=== PATIENT | female | born 1935 | race Caucasian/White ===

== ENCOUNTER → 2017-10-08 | Outpatient (CLI) | payer OTHER ==
[~2017-10-08] MED LIST: ALBIPROI INH; ALBU2SYA; ALBU3IS; ALBU3IS INH; ALBU90OI INH; ALEN70 PO; ARTIFICIAL TEAR15 M1 BOTHEYES; ATOR10; ATOR10 PO; ATOR20 PO; ATOR80 PO; Artificial Tear15 M4 BOTHEYES; Aspir 8181 MG PO; BENZ100A PO; BUDE6HFA INH; CARV6.25 PO; CHLO4; CIME400; CIPR500 PO; CLON1 PO; CLOP75; CLOP75 PO; Cetirizine HCl10 MG PO; DELTASONE20 MG PO; DIGO.125 PO; ERGO50000 PO; ESCI20 PO; FAMO20 PO; FISH1000; FLUSAL2505 IH; FLUT.05NI; FURO40 PO; GABA100 PO; GAVILAX17 GM PO; GLIP5 PO; GUAI600T33 PO; Gummi Bear Mul1 EACH PO; HYDACE5 PO; LEVCAR2510; LEVE500 PO; LEVFLO250 PO; LEVO750 PO; LISI5 PO; LORA10ER PO; MAGGLU250; MECL25 PO; METF500 PO; MYRBETRIQ25 MG PO; OMEP20ER PO; ONDA4ODT MM; OXYB5 PO; PRED10 PO; PRED20 PO; RANI150; RIVASTIGMINE1 EAC1 TD; RXLORA1 PO; RXPROACE PO; SERT100; SERT100 PO; SERT50; SIMV40 PO; SPIR25 PO; Senna Plus Tab1 EACH PO; TIOT18 IH; TOLT4 PO; TRAZ50 PO; TRELEGY ELLIPT1 EACH INH; VENL25 PO; VENL75ER PO
== END | disposition home or self-care (01) ==
LOC: LAB EV 18:45
DX: N39.0 Urinary tract infection, site not specified (principal)
CPT/HCPCS: 87077; 87086; 87186

== ENCOUNTER 2018-02-12 14:51 | Emergency (ER) | payer OTHER ==
[~2018-02-12] VITALS: Ht 144.8 cm; Wt 59.9 kg
[~2018-02-12 14:51] MED LIST changes: -ALBU90OI INH; -ARTIFICIAL TEAR15 M1 BOTHEYES; +ASPI81EC PO; -ATOR80 PO; -Artificial Tear15 M4 BOTHEYES; -Aspir 8181 MG PO; -DELTASONE20 MG PO; -GAVILAX17 GM PO; -GUAI600T33 PO; -Gummi Bear Mul1 EACH PO; -LEVFLO250 PO; -Senna Plus Tab1 EACH PO; -TRELEGY ELLIPT1 EACH INH
== END 2018-02-12 16:39 | disposition home or self-care (01) ==
LOC: ER 14:51
DX: S50.11XA Contusion of right forearm, initial encounter (principal); M79.644 Pain in right finger(s); I25.2 Old myocardial infarction; J44.9 Chronic obstructive pulmonary disease, unspecified; I25.10 Atherosclerotic heart disease of native coronary artery without angina pectoris; E11.22 Type 2 diabetes mellitus with diabetic chronic kidney disease; N18.9 Chronic kidney disease, unspecified; I50.9 Heart failure, unspecified; Z87.01 Personal history of pneumonia (recurrent); Z88.8 Allergy status to other drugs, medicaments and biological substances; Z88.1 Allergy status to other antibiotic agents; Z88.6 Allergy status to analgesic agent; Z88.0 Allergy status to penicillin; Z88.5 Allergy status to narcotic agent; Z79.899 Other long term (current) drug therapy; Z79.82 Long term (current) use of aspirin; Z79.84 Long term (current) use of oral hypoglycemic drugs; Z87.891 Personal history of nicotine dependence; W06.XXXA Fall from bed, initial encounter
CPT/HCPCS: 73080; 73140; 99283

== ENCOUNTER 2018-02-28 14:06 | Inpatient (IN) | payer OTHER ==
[~2018-02-28] VITALS: Ht 160 cm; Wt 64.0 kg
[~2018-02-28 14:06] MED LIST changes: -ASPI81EC PO; +Aspir 8181 MG PO
[2018-02-28 14:57] LABS: BASOPHILS ABSOLUTE AUTO 0.05 K/mm3 (0.00-0.23); BASOPHILS PERCENT AUTO 1 % (0-2); EOSINOPHILS ABSOLUTE AUTO 0.12 K/mm3 (0.00-0.68); EOSINOPHILS PERCENT AUTO 1 % (0-6); Hematocrit 38.2 % (33.0-51.0); Hemoglobin 12.3 g/dL (11.5-16.0); IMMATURE GRAN ABSOLUTE AUTO 0.06 K/mm3 (0.00-0.10); IMMATURE GRAN PERCENT AUTO 1 % (0-1); LYMPHOCYTES ABSOLUTE AUTO 1.51 K/mm3 (0.84-5.20); LYMPHOCYTES PERCENT AUTO 16 % (21-46); MONOCYTES ABSOLUTE AUTO 0.98 K/mm3 (0.16-1.47); MONOCYTES PERCENT AUTO 10 % (4-13); Mean Corpuscular HGB 29.2 pg (26.0-34.0); Mean Corpuscular HGB Conc 32.2 g/dL (31.5-36.5); Mean Corpuscular Volume 91 fL (80-100); Mean Platelet Volume 9.5 fL (9.1-12.4); NEUTROPHILS ABSOLUTE AUTO 6.83 K/mm3 (1.96-9.15); NEUTROPHILS PERCENT AUTO 72 % (41-73); Platelet Count 210 K/mm3 (150-400); RDW Coefficient Variation 14.2 % (11.7-14.2); RDW Standard Deviation 47.4 fL (35.1-46.3); Red Blood Cell Count 4.21 M/mm3 (3.80-5.20); White Blood Cell Count 9.55 K/mm3 (4.00-11.30)
[2018-02-28 15:08] LABS: International Normalized Ratio 1.06; Prothrombin Time Results 10.9 Sec (9.7-11.5)
[2018-02-28 15:18] LABS: Alanine Aminotransfer (ALT/SGP 25 U/L (12-78); Albumin, Blood 3.3 g/dL (3.4-5.0); Albumin/Globulin Ratio 0.8 (0.8-1.8); Alk Phos 76 U/L (50-136); Anion Gap 7 mmol/L (6-16); Aspartate Aminotrans (AST/SGOT 25 U/L (12-37); Bilirubin, Total 0.5 mg/dL (0.1-1.0); Blood Urea Nitrogen 31 mg/dL (8-24); Bun/Creatinine Ratio 23.1 (12.0-20.0); CO2, Blood 26 mmol/L (21-32); Calcium, Blood 8.5 mg/dL (8.5-10.1); Chloride, Blood 106 mmol/L (98-108); Creatinine, Blood 1.34 mg/dL (0.40-1.00); Globulin, Blood 3.9 g/dL (2.2-4.0); Glomerular Filtration Rate 40 (60-); Glucose, Blood 178 mg/dL (70-99); Potassium, Blood 4.3 mmol/L (3.5-5.5); Sodium, Blood 139 mmol/L (136-145); Total Protein, Blood 7.2 g/dL (6.4-8.2); Troponin I <0.015 ng/mL (0.000-0.040)
[2018-02-28 15:39] LABS: Bilirubin, Urine Neg (Neg); Blood, Urine 3+ (Neg); Glucose Qualitative, Urine Neg (Neg); Ketones, Urine Neg (Neg); Leukocyte Esterase, Urine Neg (Neg); Nitrite, Urine Neg (Neg); Protein, Urine Neg (Neg); Specific Gravity, Urine 1.015 (1.003-1.022); Urobilinogen, Urine NORM (Normal)
[2018-02-28 15:47] LABS: Appearance, Urine Clear (Clear); Color, Urine Yellow (P-Yellow)
[2018-02-28 15:48] LABS: Bacteria Not Seen /hpf; Red Blood Cells, Urine Not Seen /hpf (0-2); Squamous Epithelial Cells Not Seen /hpf (Few); White Blood Cells, Urine Not Seen /hpf (0-5)
[2018-03-01] MEDS ORDERED: GABA100 PO (01:14)
[2018-03-01] MEDS ORDERED: ALBU90OI INH (01:16)
[2018-03-01] MEDS ORDERED: TRELEGY ELLIPT1 EACH INH (01:30)
[2018-03-01] MEDS ORDERED: ATOR80 PO (01:35)
[2018-03-01] MEDS ORDERED: Gummi Bear Mul1 EACH PO (01:36)
[2018-03-01] MEDS ORDERED: Artificial Tear15 M4 BOTHEYES (01:38)
[2018-03-01 05:20] LABS: BASOPHILS ABSOLUTE AUTO 0.03 K/mm3 (0.00-0.23); BASOPHILS PERCENT AUTO 0 % (0-2); EOSINOPHILS ABSOLUTE AUTO 0.15 K/mm3 (0.00-0.68); EOSINOPHILS PERCENT AUTO 2 % (0-6); Hematocrit 31.3 % (33.0-51.0); Hemoglobin 9.8 g/dL (11.5-16.0); IMMATURE GRAN ABSOLUTE AUTO 0.04 K/mm3 (0.00-0.10); IMMATURE GRAN PERCENT AUTO 1 % (0-1); LYMPHOCYTES ABSOLUTE AUTO 1.88 K/mm3 (0.84-5.20); LYMPHOCYTES PERCENT AUTO 22 % (21-46); MONOCYTES ABSOLUTE AUTO 1.11 K/mm3 (0.16-1.47); MONOCYTES PERCENT AUTO 13 % (4-13); Mean Corpuscular HGB 28.6 pg (26.0-34.0); Mean Corpuscular HGB Conc 31.3 g/dL (31.5-36.5); Mean Corpuscular Volume 91 fL (80-100); Mean Platelet Volume 9.6 fL (9.1-12.4); NEUTROPHILS ABSOLUTE AUTO 5.54 K/mm3 (1.96-9.15); NEUTROPHILS PERCENT AUTO 63 % (41-73); Platelet Count 197 K/mm3 (150-400); RDW Coefficient Variation 14.1 % (11.7-14.2); Red Blood Cell Count 3.43 M/mm3 (3.80-5.20); White Blood Cell Count 8.75 K/mm3 (4.00-11.30)
[2018-03-01 05:46] LABS: Magnesium, Blood 2.1 mg/dL (1.6-2.4)
[2018-03-01 05:52] LABS: Albumin, Blood 2.7 g/dL (3.4-5.0); Albumin/Globulin Ratio 0.8 (0.8-1.8); Bilirubin, Total 0.4 mg/dL (0.1-1.0); Calcium, Blood 7.3 mg/dL (8.5-10.1); Creatinine, Blood 1.37 mg/dL (0.40-1.00); Globulin, Blood 3.2 g/dL (2.2-4.0); Phosphorus, Blood 2.5 mg/dL (2.5-4.9); Potassium, Blood 3.6 mmol/L (3.5-5.5); Total Protein, Blood 5.9 g/dL (6.4-8.2)
[2018-03-02 05:15] LABS: BASOPHILS ABSOLUTE AUTO 0.03 K/mm3 (0.00-0.23); BASOPHILS PERCENT AUTO 0 % (0-2); EOSINOPHILS PERCENT AUTO 4 % (0-6); Hematocrit 32.2 % (33.0-51.0); IMMATURE GRAN ABSOLUTE AUTO 0.03 K/mm3 (0.00-0.10); IMMATURE GRAN PERCENT AUTO 0 % (0-1); LYMPHOCYTES ABSOLUTE AUTO 1.45 K/mm3 (0.84-5.20); LYMPHOCYTES PERCENT AUTO 20 % (21-46); MONOCYTES ABSOLUTE AUTO 0.79 K/mm3 (0.16-1.47); MONOCYTES PERCENT AUTO 11 % (4-13); Mean Corpuscular HGB 29.2 pg (26.0-34.0); Mean Corpuscular HGB Conc 31.1 g/dL (31.5-36.5); Mean Platelet Volume 9.7 fL (9.1-12.4); NEUTROPHILS ABSOLUTE AUTO 4.54 K/mm3 (1.96-9.15); NEUTROPHILS PERCENT AUTO 64 % (41-73); Platelet Count 202 K/mm3 (150-400); RDW Coefficient Variation 13.9 % (11.7-14.2); RDW Standard Deviation 47.8 fL (35.1-46.3); Red Blood Cell Count 3.43 M/mm3 (3.80-5.20); White Blood Cell Count 7.14 K/mm3 (4.00-11.30)
[2018-03-02 05:18] LABS: Mean Corpuscular Volume 94 fL (80-100)
[2018-03-02 05:38] LABS: Albumin, Blood 2.5 g/dL (3.4-5.0); Albumin/Globulin Ratio 0.7 (0.8-1.8); Bilirubin, Total 0.4 mg/dL (0.1-1.0); Creatinine, Blood 1.11 mg/dL (0.40-1.00); Globulin, Blood 3.5 g/dL (2.2-4.0); Potassium, Blood 4.2 mmol/L (3.5-5.5)
[2018-03-03 04:43] LABS: BASOPHILS ABSOLUTE AUTO 0.01 K/mm3 (0.00-0.23); BASOPHILS PERCENT AUTO 0 % (0-2); EOSINOPHILS ABSOLUTE AUTO 0.01 K/mm3 (0.00-0.68); EOSINOPHILS PERCENT AUTO 0 % (0-6); Hematocrit 35.6 % (33.0-51.0); Hemoglobin 11.2 g/dL (11.5-16.0); IMMATURE GRAN ABSOLUTE AUTO 0.04 K/mm3 (0.00-0.10); IMMATURE GRAN PERCENT AUTO 1 % (0-1); LYMPHOCYTES ABSOLUTE AUTO 0.54 K/mm3 (0.84-5.20); LYMPHOCYTES PERCENT AUTO 8 % (21-46); MONOCYTES ABSOLUTE AUTO 0.08 K/mm3 (0.16-1.47); MONOCYTES PERCENT AUTO 1 % (4-13); Mean Corpuscular HGB 28.5 pg (26.0-34.0); Mean Corpuscular HGB Conc 31.5 g/dL (31.5-36.5); Mean Platelet Volume 9.7 fL (9.1-12.4); NEUTROPHILS ABSOLUTE AUTO 6.45 K/mm3 (1.96-9.15); NEUTROPHILS PERCENT AUTO 91 % (41-73); Platelet Count 243 K/mm3 (150-400); RDW Coefficient Variation 13.5 % (11.7-14.2); RDW Standard Deviation 45.1 fL (35.1-46.3); Red Blood Cell Count 3.93 M/mm3 (3.80-5.20); White Blood Cell Count 7.13 K/mm3 (4.00-11.30)
[2018-03-03 04:46] LABS: Mean Corpuscular Volume 91 fL (80-100)
[2018-03-03 05:37] LABS: Bun/Creatinine Ratio 19.8 (12.0-20.0); Calcium, Blood 8.8 mg/dL (8.5-10.1); Creatinine, Blood 1.06 mg/dL (0.40-1.00); Potassium, Blood 4.8 mmol/L (3.5-5.5)
[2018-03-04 05:33] LABS: BASOPHILS PERCENT AUTO 0 % (0-2); EOSINOPHILS PERCENT AUTO 0 % (0-6); Hematocrit 32.8 % (33.0-51.0); Hemoglobin 10.3 g/dL (11.5-16.0); IMMATURE GRAN ABSOLUTE AUTO 0.09 K/mm3 (0.00-0.10); IMMATURE GRAN PERCENT AUTO 1 % (0-1); LYMPHOCYTES ABSOLUTE AUTO 0.75 K/mm3 (0.84-5.20); LYMPHOCYTES PERCENT AUTO 7 % (21-46); MONOCYTES ABSOLUTE AUTO 0.27 K/mm3 (0.16-1.47); MONOCYTES PERCENT AUTO 3 % (4-13); Mean Corpuscular HGB 28.5 pg (26.0-34.0); Mean Corpuscular HGB Conc 31.4 g/dL (31.5-36.5); Mean Corpuscular Volume 91 fL (80-100); Mean Platelet Volume 9.8 fL (9.1-12.4); NEUTROPHILS ABSOLUTE AUTO 9.39 K/mm3 (1.96-9.15); NEUTROPHILS PERCENT AUTO 89 % (41-73); Platelet Count 271 K/mm3 (150-400); RDW Coefficient Variation 13.6 % (11.7-14.2); RDW Standard Deviation 45.4 fL (35.1-46.3); Red Blood Cell Count 3.62 M/mm3 (3.80-5.20)
[2018-03-04 05:55] LABS: Bun/Creatinine Ratio 29.9 (12.0-20.0); Calcium, Blood 8.9 mg/dL (8.5-10.1); Creatinine, Blood 1.07 mg/dL (0.40-1.00); Potassium, Blood 4.8 mmol/L (3.5-5.5)
[2018-03-06] MEDS ORDERED: GUAI600T33 PO (10:54)
[2018-03-06] MEDS ORDERED: Senna Plus Tab1 EACH PO (10:54)
[2018-03-06] MEDS ORDERED: LEVFLO250 PO (10:55)
[2018-03-06] MEDS ORDERED: ALBU3IS INH (10:56)
[2018-03-06] MEDS ORDERED: GAVILAX17 GM PO (10:59)
[2018-03-06] MEDS ORDERED: PRED10 PO (10:59)
== END 2018-03-06 14:02 | disposition home or self-care (01) | DRG 193 ==
LOC: ER 14:06 → MEDS 16:21 → ENPENDDIS 03-06 10:15 → MEDS 03-06 14:02
PROVIDERS: Emergency Medicine; Hospitalist
DX: J18.9 Pneumonia, unspecified organism (principal); J96.21 Acute and chronic respiratory failure with hypoxia; J44.0 Chronic obstructive pulmonary disease with (acute) lower respiratory infection; I13.0 Hypertensive heart and chronic kidney disease with heart failure and stage 1 through stage 4 chronic kidney disease, or unspecified chronic kidney disease; J44.1 Chronic obstructive pulmonary disease with (acute) exacerbation; I73.9 Peripheral vascular disease, unspecified; K59.00 Constipation, unspecified; R26.0 Ataxic gait; K21.9 Gastro-esophageal reflux disease without esophagitis; I25.10 Atherosclerotic heart disease of native coronary artery without angina pectoris; E78.5 Hyperlipidemia, unspecified; M81.0 Age-related osteoporosis without current pathological fracture; G47.33 Obstructive sleep apnea (adult) (pediatric); E11.40 Type 2 diabetes mellitus with diabetic neuropathy, unspecified; E11.22 Type 2 diabetes mellitus with diabetic chronic kidney disease; N18.3 Chronic kidney disease, stage 3 (moderate); I50.9 Heart failure, unspecified; M15.9 Polyosteoarthritis, unspecified; E66.9 Obesity, unspecified; Z68.25 Body mass index [BMI] 25.0-25.9, adult
CPT/HCPCS: 36415; 71045; 80048; 80053; 81001; 82947; 83605; 83735; 83880; 84100; 84145; 84484; 85025; 85610; 87040; 92610; 93005; 93010; 94640; 94667; 94760; 96374; 97110; 97116; 97161; 97530; 99285; G8978; G8979; G8996; G8997; G8998; J1650; J1956; J2920; J7030

== ENCOUNTER → 2018-11-21 | Outpatient (CLI) | payer OTHER ==
[~2018-11-21] MED LIST changes: +ALBU90OI INH; +ARTIFICIAL TEAR15 M1 BOTHEYES; +ATOR80 PO; +Artificial Tear15 M4 BOTHEYES; +DELTASONE20 MG PO; +GAVILAX17 GM PO; +GUAI600T33 PO; +Gummi Bear Mul1 EACH PO; +LEVFLO250 PO; +Senna Plus Tab1 EACH PO; +TRELEGY ELLIPT1 EACH INH
== END | disposition home or self-care (01) ==
LOC: LAB 13:41 → LAB SHORT 13:41
DX: R05 Cough (principal)
CPT/HCPCS: 87070; 87077; 87186; 87205

== ENCOUNTER 2019-09-20 17:57 | Inpatient (IN) | payer OTHER ==
[~2019-09-20] VITALS: Ht 142.2 cm; Wt 62.1 kg
[~2019-09-20 17:57] MED LIST changes: -AZIT250 PO; -Klonopin0.5 MG PO; -Prednisone20 MG PO
[2019-09-20 18:34] LABS: PCO2 Arterial 49.6 mmHg (35-45); PO2 Arterial 88.6 mmHg (80-100); pH Blood Arterial 7.37 (7.35-7.45)
[2019-09-20 19:39] LABS: Adenovirus Not Detected (NOT DETECT); Bordetella pertussis Not Detected (NOT DETECT); Chlamydophila pneumoniae Not Detected (NOT DETECT); Coronavirus 229E Not Detected (NOT DETECT); Coronavirus HKU1 Not Detected (NOT DETECT); Coronavirus NL63 Not Detected (NOT DETECT); Coronavirus OC43 Not Detected (NOT DETECT); Human Metapneumovirus Not Detected (NOT DETECT); Human Rhinovirus/Enterovirus Not Detected (NOT DETECT); Influenza A Not Detected (NOT DETECT); Influenza A/2009-H1 Not Detected (NOT DETECT); Influenza A/H1 Not Detected (NOT DETECT); Influenza A/H3 Not Detected (NOT DETECT); Influenza B Not Detected (NOT DETECT); Mycoplasma pneumoniae Not Detected (NOT DETECT); Parainfluenza Virus 1 Not Detected (NOT DETECT); Parainfluenza Virus 2 Not Detected (NOT DETECT); Parainfluenza Virus 3 Not Detected (NOT DETECT); Parainfluenza Virus 4 Not Detected (NOT DETECT); Respiratory Syncytial Virus Not Detected (NOT DETECT)
--- NOTE | 2019-09-20 23:22 | NUR ---
PATIENT IS A NEW ADMIT FROM THE ED. AXOX 3 AND THREE PERSON TRANSFER FROM [facility] TO BED. ON 2L O2 NC BASELINE. IV ROCHEP INFUSING ON ADMIT. ONE PERSON ASSIST WITH BATHROOM PRIVLEDGES. REPORTS BREATHING HAS IMPROVED. DAUGHTER PRESENT ON ADMIT. PATIENT EATING FAST FOOD FROM DAUGHTER. DENIES PAIN AND N/V. ORIENTED TO ROOM AND CALL LIGHT SYSTEM. REQUESTED TO WATCH TV. CALL LIGHT IN REACH. WILL CONTINUE TO MONITOR.
--- NOTE | 2019-09-21 00:21 | NUR ---
PATIENT RESTING WITH BACKGROUND TV ON. IV SOLU-MEDROL GIVEN PER EMAR. ON 2L O2 NC BASELINE. SCUDS IN PLACE AND HEPARIN SC GIVEN PER EMAR. CALL LIGHT IN REACH.
--- NOTE | 2019-09-21 04:17 | NUR ---
SHIFT SUMMARY PATIENT HAD NO ACUTE CHANGES SINCE ADMIT. AXOX 4 AND BEDREST WITH BATHROOM PRIVLEDGES. ON 2L O2 NC BASELINE. REPORTS BREATHNG HAS IMPROVED SINCE ADMIT. RT IN FOR BREATHING TX. IV SOLU-MEDROL GIVEN PER EMAR. VSS/AFEBRILE. DENIES PAIN AND N/V. DAUGHTER PRESENT ON ADMIT. WATCHED TV FOR A FEW HOURS AND ABLE TO SLEEP. CALL LIGHT IN REACH. BED IN LOWEST POSITION. WILL CONTINUE TO MONITOR UNTIL DAY SHIFT NURSE ASSUMES CARE.
[2019-09-21] MEDS ORDERED: Klonopin0.5 MG PO (14:07)
[2019-09-21] MEDS ORDERED: FAMO20 PO (14:07)
--- NOTE | 2019-09-21 16:39 | NUR ---
SHIFT SUMMARY PT SATING IN THE 90S ON 2L O2 VIA NC THROUGHOUT SHIFT. DENIES SOB. PT AMBULATED HALLWAY WITH AIDE & TOLERATED WELL. PT STATES SHE IS "FEELING BETTER." SHOWER TAKEN TODAY. PT DENIES PAIN & NAUSEA. SAT UP IN CHAIR FOR MOST THE SHIFT. PT CURRENTLY IN BED RESTING. CALL LIGHT IN REACH. NO OTHER CHANGES IN ASSESSMENT AT THIS TIME. VSS. WILL CONTINUE TO MONITOR UNTIL TURNOVER IS COMPLETE.
--- NOTE | 2019-09-21 22:07 | NUR ---
PATIENT WATCHING TV ON 2L O2 NC BASELINE. DENIES PAIN, SOB, AND N/V. CALL LIGHT IN REACH.
--- NOTE | 2019-09-22 04:04 | NUR ---
SHIFT SUMMARY PATIENT HAD NO ACUTE CHANGES OBSERVED. AXOX 4 AND SBA TO BR. ON 2L O2 NC BASELINE. RT IN FOR BREATHING TX. PIV REMAINS INTACT. IV ABX INFUSED. VSS/AFEBRILE. DENIES PAIN, SOB, AND N/V. COOPERATIVE WITH CARE. CALL LIGHT IN REACH. BED IN LOWEST POSITION. WILL CONTINUE TO MONITOR UNTIL DAY SHIFT NURSE ASSUMES CARE.
[2019-09-22] MEDS ORDERED: AZIT250 PO (11:17)
[2019-09-22] MEDS ORDERED: Prednisone20 MG PO (11:18)
--- NOTE | 2019-09-22 12:29 | NUR ---
SHE IS EATING SOME LUNCH. DISCHARGE INSTRUCTIONS HAVE BEEN GIVEN.
--- NOTE | 2019-09-22 14:58 | NUR ---
STANDING AT THE WINDOW LOOKING OUT AT THE STORMY DAY. O2 ON.
--- NOTE | 2019-09-22 15:37 | NUR ---
DC'D TO HOME WITH HER DAUGHTER AT 1538 WITH INSTRUCTIONS AND BELONGINGS. SHE IS HAPPY TO GO HOME AND FEELS SO MUCH BETTER THAN WHEN SHE CAME IN.
== END 2019-09-22 15:45 | disposition home or self-care (01) | DRG 189 ==
LOC: ER 17:57 → MEDS 19:51 → ENPENDDIS 09-22 11:33 → MEDS 09-22 15:45
PROVIDERS: Emergency Medicine; ADMIT Hospitalist
DX: J96.21 Acute and chronic respiratory failure with hypoxia (principal); J44.1 Chronic obstructive pulmonary disease with (acute) exacerbation; I50.22 Chronic systolic (congestive) heart failure; J96.22 Acute and chronic respiratory failure with hypercapnia; E11.51 Type 2 diabetes mellitus with diabetic peripheral angiopathy without gangrene; E11.22 Type 2 diabetes mellitus with diabetic chronic kidney disease; N18.3 Chronic kidney disease, stage 3 (moderate); M81.0 Age-related osteoporosis without current pathological fracture; K21.9 Gastro-esophageal reflux disease without esophagitis; G25.0 Essential tremor; G47.33 Obstructive sleep apnea (adult) (pediatric); R26.0 Ataxic gait; M19.90 Unspecified osteoarthritis, unspecified site; D64.9 Anemia, unspecified; I48.0 Paroxysmal atrial fibrillation; I25.10 Atherosclerotic heart disease of native coronary artery without angina pectoris; Z99.81 Dependence on supplemental oxygen; Z86.73 Personal history of transient ischemic attack (TIA), and cerebral infarction without residual deficits; Z95.5 Presence of coronary angioplasty implant and graft; Z87.891 Personal history of nicotine dependence
CPT/HCPCS: 0099U; 36415; 36600; 82803; 94644; 94760; 96374; 96375; 99285-25; J0696; J1644; J2930

== ENCOUNTER → 2019-09-20 | Outpatient (CLI) | payer OTHER ==
[~2019-09-20] MED LIST changes: +AZIT250 PO; +Klonopin0.5 MG PO; +Norco 5-325 Ta1 EACH PO; +Prednisone20 MG PO; -RIVASTIGMINE1 EAC1 TD; +RIVASTIGMINE1.5 MG PO
[2019-09-20 17:14] LABS: BASOPHILS ABSOLUTE AUTO 0.05 K/mm3 (0.00-0.23); BASOPHILS PERCENT AUTO 1 % (0-2); EOSINOPHILS ABSOLUTE AUTO 0.27 K/mm3 (0.00-0.68); EOSINOPHILS PERCENT AUTO 3 % (0-6); Hematocrit 33.8 % (33.0-51.0); Hemoglobin 10.7 g/dL (11.5-16.0); IMMATURE GRAN ABSOLUTE AUTO 0.06 K/mm3 (0.00-0.10); IMMATURE GRAN PERCENT AUTO 1 % (0-1); LYMPHOCYTES ABSOLUTE AUTO 2.32 K/mm3 (0.84-5.20); LYMPHOCYTES PERCENT AUTO 24 % (21-46); MONOCYTES ABSOLUTE AUTO 0.76 K/mm3 (0.16-1.47); MONOCYTES PERCENT AUTO 8 % (4-13); Mean Corpuscular HGB 28.8 pg (26.0-34.0); Mean Corpuscular HGB Conc 31.7 g/dL (31.5-36.5); Mean Corpuscular Volume 91 fL (80-100); Mean Platelet Volume 9.5 fL (9.1-12.4); NEUTROPHILS ABSOLUTE AUTO 6.24 K/mm3 (1.96-9.15); NEUTROPHILS PERCENT AUTO 64 % (41-73); Platelet Count 235 K/mm3 (150-400); RDW Coefficient Variation 13.8 % (11.7-14.2); RDW Standard Deviation 46.3 fL (35.1-46.3); Red Blood Cell Count 3.72 M/mm3 (3.80-5.20)
[2019-09-20 17:17] LABS: Bun/Creatinine Ratio 21.1 (12.0-20.0); Calcium, Blood 8.3 mg/dL (8.5-10.1); Creatinine, Blood 1.42 mg/dL (0.40-1.00); Potassium, Blood 4.6 mmol/L (3.5-5.5)
== END | disposition home or self-care (01) ==
LOC: LAB SHORT 17:08 → LAB EV 17:08
PROVIDERS: Physician Assistant Surgical
DX: R06.02 Shortness of breath (principal)
CPT/HCPCS: 80048; 85025

== ENCOUNTER → 2019-11-29 | Outpatient (CLI) | payer OTHER ==
[~2019-11-29] MED LIST changes: +AZIT250 PO; +Klonopin0.5 MG PO; +Prednisone20 MG PO
[2019-11-29 14:54] LABS: BASOPHILS ABSOLUTE AUTO 0.05 K/mm3 (0.00-0.23); BASOPHILS PERCENT AUTO 1 % (0-2); EOSINOPHILS ABSOLUTE AUTO 0.11 K/mm3 (0.00-0.68); EOSINOPHILS PERCENT AUTO 1 % (0-6); Hematocrit 37.3 % (33.0-51.0); IMMATURE GRAN ABSOLUTE AUTO 0.03 K/mm3 (0.00-0.10); IMMATURE GRAN PERCENT AUTO 0 % (0-1); LYMPHOCYTES ABSOLUTE AUTO 1.13 K/mm3 (0.84-5.20); LYMPHOCYTES PERCENT AUTO 11 % (21-46); MONOCYTES ABSOLUTE AUTO 0.85 K/mm3 (0.16-1.47); MONOCYTES PERCENT AUTO 8 % (4-13); Mean Corpuscular HGB 29.2 pg (26.0-34.0); Mean Corpuscular HGB Conc 32.2 g/dL (31.5-36.5); Mean Corpuscular Volume 91 fL (80-100); Mean Platelet Volume 9.8 fL (9.1-12.4); NEUTROPHILS ABSOLUTE AUTO 8.25 K/mm3 (1.96-9.15); NEUTROPHILS PERCENT AUTO 79 % (41-73); Platelet Count 191 K/mm3 (150-400); RDW Coefficient Variation 14.8 % (11.7-14.2); RDW Standard Deviation 49.1 fL (35.1-46.3); Red Blood Cell Count 4.11 M/mm3 (3.80-5.20); White Blood Cell Count 10.42 K/mm3 (4.00-11.30)
[2019-11-29 14:57] LABS: Bun/Creatinine Ratio 24.8 (12.0-20.0); Calcium, Blood 8.2 mg/dL (8.5-10.1); Creatinine, Blood 1.29 mg/dL (0.40-1.00); Potassium, Blood 4.7 mmol/L (3.5-5.5)
== END | disposition home or self-care (01) ==
LOC: LAB EV 14:48 → LAB SHORT 14:48
PROVIDERS: Physician Assistant Surgical
DX: J18.0 Bronchopneumonia, unspecified organism (principal)
CPT/HCPCS: 80048; 83880; 85025

== ENCOUNTER 2019-12-03 18:41 | Emergency (ER) | payer OTHER ==
[~2019-12-03] VITALS: Ht 152.4 cm; Wt 77.1 kg
[2019-12-03 19:15] LABS: BASOPHILS ABSOLUTE AUTO 0.05 K/mm3 (0.00-0.23); BASOPHILS PERCENT AUTO 1 % (0-2); EOSINOPHILS PERCENT AUTO 4 % (0-6); Hematocrit 36.6 % (33.0-51.0); Hemoglobin 11.5 g/dL (11.5-16.0); IMMATURE GRAN ABSOLUTE AUTO 0.07 K/mm3 (0.00-0.10); IMMATURE GRAN PERCENT AUTO 1 % (0-1); LYMPHOCYTES ABSOLUTE AUTO 2.68 K/mm3 (0.84-5.20); LYMPHOCYTES PERCENT AUTO 32 % (21-46); MONOCYTES ABSOLUTE AUTO 1.03 K/mm3 (0.16-1.47); MONOCYTES PERCENT AUTO 12 % (4-13); Mean Corpuscular HGB 28.9 pg (26.0-34.0); Mean Corpuscular HGB Conc 31.4 g/dL (31.5-36.5); Mean Corpuscular Volume 92 fL (80-100); Mean Platelet Volume 9.7 fL (9.1-12.4); NEUTROPHILS PERCENT AUTO 51 % (41-73); Platelet Count 218 K/mm3 (150-400); RDW Coefficient Variation 14.4 % (11.7-14.2); RDW Standard Deviation 48.6 fL (35.1-46.3); Red Blood Cell Count 3.98 M/mm3 (3.80-5.20); White Blood Cell Count 8.43 K/mm3 (4.00-11.30)
[2019-12-03 19:34] LABS: Alanine Aminotransfer (ALT/SGP 23 U/L (12-78); Albumin, Blood 3.3 g/dL (3.4-5.0); Albumin/Globulin Ratio 0.9 (0.8-1.8); Alk Phos 75 U/L (50-136); Anion Gap 4 mmol/L (6-16); Aspartate Aminotrans (AST/SGOT 27 U/L (12-37); Bilirubin, Total 0.4 mg/dL (0.1-1.0); Blood Urea Nitrogen 25 mg/dL (8-24); Bun/Creatinine Ratio 22.9 (12.0-20.0); CO2, Blood 30 mmol/L (21-32); Calcium, Blood 8.7 mg/dL (8.5-10.1); Chloride, Blood 108 mmol/L (98-108); Creatinine, Blood 1.09 mg/dL (0.40-1.00); Globulin, Blood 3.7 g/dL (2.2-4.0); Glomerular Filtration Rate 51 (60-); Glucose, Blood 119 mg/dL (70-99); Potassium, Blood 4.7 mmol/L (3.5-5.5); Sodium, Blood 142 mmol/L (136-145); Troponin I <0.015 ng/mL (0.000-0.040)
[2019-12-03] MEDS ORDERED: METPRE4DP PO (20:52)
== END 2019-12-03 22:05 | disposition home or self-care (01) ==
LOC: ER 18:41
PROVIDERS: Emergency Medicine
DX: J44.1 Chronic obstructive pulmonary disease with (acute) exacerbation (principal); E11.22 Type 2 diabetes mellitus with diabetic chronic kidney disease; E11.51 Type 2 diabetes mellitus with diabetic peripheral angiopathy without gangrene; F32.9 Major depressive disorder, single episode, unspecified; I50.22 Chronic systolic (congestive) heart failure; I48.91 Unspecified atrial fibrillation; K21.9 Gastro-esophageal reflux disease without esophagitis; N18.3 Chronic kidney disease, stage 3 (moderate); G47.33 Obstructive sleep apnea (adult) (pediatric); I25.10 Atherosclerotic heart disease of native coronary artery without angina pectoris; M81.0 Age-related osteoporosis without current pathological fracture; I25.2 Old myocardial infarction; Z87.891 Personal history of nicotine dependence; Z88.6 Allergy status to analgesic agent; Z88.0 Allergy status to penicillin; Z88.5 Allergy status to narcotic agent; Z88.1 Allergy status to other antibiotic agents; Z79.01 Long term (current) use of anticoagulants; Z88.8 Allergy status to other drugs, medicaments and biological substances; Z79.51 Long term (current) use of inhaled steroids; Z79.52 Long term (current) use of systemic steroids; Z79.82 Long term (current) use of aspirin
CPT/HCPCS: 71045; 80053; 83880; 84484; 85025; 93005; 93010; 94640; 99285-25

== ENCOUNTER 2019-12-05 16:29 | Inpatient (IN) | payer OTHER ==
[~2019-12-05] VITALS: Ht 142.2 cm; Wt 60.6 kg
[~2019-12-05 16:29] MED LIST changes: +ALBU2.5V5 INH; +METPRE4DP PO
[2019-12-05 17:49] LABS: Base Excess Venous 6.2 mmol/L; Bicarbonate Venous 28.5 mmol/L (24.0-30.0); PCO2 Venous 62.7 mmHg (38-42); PO2 Venous 69.1 mmHg (38-42); pH Blood Venous 7.32 (7.34-7.37)
[2019-12-05 18:08] LABS: BASOPHILS ABSOLUTE AUTO 0.05 K/mm3 (0.00-0.23); BASOPHILS PERCENT AUTO 0 % (0-2); EOSINOPHILS PERCENT AUTO 0 % (0-6); Hematocrit 37.4 % (33.0-51.0); Hemoglobin 11.6 g/dL (11.5-16.0); IMMATURE GRAN ABSOLUTE AUTO 0.24 K/mm3 (0.00-0.10); IMMATURE GRAN PERCENT AUTO 2 % (0-1); LYMPHOCYTES ABSOLUTE AUTO 1.19 K/mm3 (0.84-5.20); LYMPHOCYTES PERCENT AUTO 10 % (21-46); MONOCYTES ABSOLUTE AUTO 0.46 K/mm3 (0.16-1.47); MONOCYTES PERCENT AUTO 4 % (4-13); Mean Corpuscular HGB 28.9 pg (26.0-34.0); Mean Corpuscular Volume 93 fL (80-100); Mean Platelet Volume 9.8 fL (9.1-12.4); NEUTROPHILS ABSOLUTE AUTO 10.24 K/mm3 (1.96-9.15); NEUTROPHILS PERCENT AUTO 84 % (41-73); Platelet Count 270 K/mm3 (150-400); RDW Coefficient Variation 14.6 % (11.7-14.2); RDW Standard Deviation 50.4 fL (35.1-46.3); Red Blood Cell Count 4.02 M/mm3 (3.80-5.20); White Blood Cell Count 12.18 K/mm3 (4.00-11.30)
[2019-12-05 18:37] LABS: Alanine Aminotransfer (ALT/SGP 27 U/L (12-78); Albumin, Blood 3.4 g/dL (3.4-5.0); Albumin/Globulin Ratio 0.9 (0.8-1.8); Alk Phos 74 U/L (50-136); Anion Gap 5 mmol/L (6-16); Aspartate Aminotrans (AST/SGOT 25 U/L (12-37); Bilirubin, Total 0.4 mg/dL (0.1-1.0); Blood Urea Nitrogen 44 mg/dL (8-24); Bun/Creatinine Ratio 33.8 (12.0-20.0); CO2, Blood 30 mmol/L (21-32); Calcium, Blood 8.7 mg/dL (8.5-10.1); Chloride, Blood 103 mmol/L (98-108); Globulin, Blood 3.7 g/dL (2.2-4.0); Glomerular Filtration Rate 41 (60-); Glucose, Blood 138 mg/dL (70-99); Potassium, Blood 5.4 mmol/L (3.5-5.5); Sodium, Blood 138 mmol/L (136-145); Total Protein, Blood 7.1 g/dL (6.4-8.2)
[2019-12-05 18:39] LABS: Troponin I <0.015 ng/mL (0.000-0.040)
[2019-12-05] MEDS ORDERED: FURO20 PO (22:43)
[2019-12-06 04:29] LABS: BASOPHILS ABSOLUTE AUTO 0.04 K/mm3 (0.00-0.23); BASOPHILS PERCENT AUTO 0 % (0-2); EOSINOPHILS ABSOLUTE AUTO 0.01 K/mm3 (0.00-0.68); EOSINOPHILS PERCENT AUTO 0 % (0-6); Hematocrit 34.6 % (33.0-51.0); Hemoglobin 10.7 g/dL (11.5-16.0); IMMATURE GRAN ABSOLUTE AUTO 0.18 K/mm3 (0.00-0.10); IMMATURE GRAN PERCENT AUTO 2 % (0-1); LYMPHOCYTES ABSOLUTE AUTO 1.74 K/mm3 (0.84-5.20); LYMPHOCYTES PERCENT AUTO 16 % (21-46); MONOCYTES ABSOLUTE AUTO 0.87 K/mm3 (0.16-1.47); MONOCYTES PERCENT AUTO 8 % (4-13); Mean Corpuscular HGB 28.8 pg (26.0-34.0); Mean Corpuscular HGB Conc 30.9 g/dL (31.5-36.5); Mean Corpuscular Volume 93 fL (80-100); Mean Platelet Volume 9.5 fL (9.1-12.4); NEUTROPHILS ABSOLUTE AUTO 7.75 K/mm3 (1.96-9.15); NEUTROPHILS PERCENT AUTO 73 % (41-73); Platelet Count 250 K/mm3 (150-400); RDW Coefficient Variation 14.8 % (11.7-14.2); RDW Standard Deviation 51.1 fL (35.1-46.3); Red Blood Cell Count 3.71 M/mm3 (3.80-5.20); White Blood Cell Count 10.59 K/mm3 (4.00-11.30)
[2019-12-06 04:46] LABS: Bun/Creatinine Ratio 32.6 (12.0-20.0); Calcium, Blood 8.6 mg/dL (8.5-10.1); Creatinine, Blood 1.38 mg/dL (0.40-1.00); Potassium, Blood 4.9 mmol/L (3.5-5.5)
[2019-12-06 13:33] LABS: PO2 Arterial 69.5 mmHg (80-100)
[2019-12-06 13:34] LABS: PCO2 Arterial 72.3 mmHg (35-45); pH Blood Arterial 7.28 (7.35-7.45)
[2019-12-06 14:50] LABS: Adenovirus Not Detected (NOT DETECT); Bordetella pertussis Not Detected (NOT DETECT); Chlamydophila pneumoniae Not Detected (NOT DETECT); Coronavirus 229E Not Detected (NOT DETECT); Coronavirus HKU1 Not Detected (NOT DETECT); Coronavirus NL63 Not Detected (NOT DETECT); Coronavirus OC43 Not Detected (NOT DETECT); Human Metapneumovirus Detected (NOT DETECT); Human Rhinovirus/Enterovirus Not Detected (NOT DETECT); Influenza A/2009-H1 Not Detected (NOT DETECT); Influenza A/H1 Not Detected (NOT DETECT); Influenza A/H3 Not Detected (NOT DETECT); Influenza B Not Detected (NOT DETECT); Mycoplasma pneumoniae Not Detected (NOT DETECT); Parainfluenza Virus 1 Not Detected (NOT DETECT); Parainfluenza Virus 2 Not Detected (NOT DETECT); Parainfluenza Virus 3 Not Detected (NOT DETECT); Parainfluenza Virus 4 Not Detected (NOT DETECT); Respiratory Syncytial Virus Not Detected (NOT DETECT)
[2019-12-06 17:50] LABS: PCO2 Arterial 62.2 mmHg (35-45); pH Blood Arterial 7.36 (7.35-7.45)
[2019-12-07 04:56] LABS: Albumin, Blood 3.1 g/dL (3.4-5.0); Anion Gap 4 mmol/L (6-16); Blood Urea Nitrogen 49 mg/dL (8-24); Bun/Creatinine Ratio 34.8 (12.0-20.0); CO2, Blood 33 mmol/L (21-32); Calcium, Blood 8.8 mg/dL (8.5-10.1); Chloride, Blood 105 mmol/L (98-108); Creatinine, Blood 1.41 mg/dL (0.40-1.00); Glomerular Filtration Rate 38 (60-); Glucose, Blood 178 mg/dL (70-99); Phosphorus, Blood 4.2 mg/dL (2.5-4.9); Potassium, Blood 5.2 mmol/L (3.5-5.5); Sodium, Blood 142 mmol/L (136-145)
[2019-12-08 05:09] LABS: PCO2 Arterial 57.4 mmHg (35-45); pH Blood Arterial 7.41 (7.35-7.45)
[2019-12-08 05:44] LABS: Albumin, Blood 2.9 g/dL (3.4-5.0); Anion Gap 3 mmol/L (6-16); Blood Urea Nitrogen 40 mg/dL (8-24); Bun/Creatinine Ratio 34.8 (12.0-20.0); CO2, Blood 35 mmol/L (21-32); Calcium, Blood 8.5 mg/dL (8.5-10.1); Chloride, Blood 104 mmol/L (98-108); Creatinine, Blood 1.15 mg/dL (0.40-1.00); Glomerular Filtration Rate 48 (60-); Glucose, Blood 126 mg/dL (70-99); Phosphorus, Blood 3.4 mg/dL (2.5-4.9); Sodium, Blood 142 mmol/L (136-145)
[2019-12-09 06:02] LABS: Albumin, Blood 2.9 g/dL (3.4-5.0); Anion Gap 4 mmol/L (6-16); Blood Urea Nitrogen 46 mg/dL (8-24); Bun/Creatinine Ratio 35.7 (12.0-20.0); CO2, Blood 35 mmol/L (21-32); Calcium, Blood 8.3 mg/dL (8.5-10.1); Chloride, Blood 104 mmol/L (98-108); Creatinine, Blood 1.29 mg/dL (0.40-1.00); Glomerular Filtration Rate 42 (60-); Glucose, Blood 128 mg/dL (70-99); Phosphorus, Blood 3.5 mg/dL (2.5-4.9); Potassium, Blood 4.9 mmol/L (3.5-5.5); Sodium, Blood 143 mmol/L (136-145)
[2019-12-09] MEDS ORDERED: Prednisone10 MG PO (11:53)
[2019-12-09] MEDS ORDERED: AZIT250 PO (12:27)
== END 2019-12-09 14:14 | disposition home or self-care (01) | DRG 190 ==
LOC: ER 16:29 → MEDS 16:30 → ENPENDDIS 12-09 11:30 → MEDS 12-09 14:14
PROVIDERS: Emergency Medicine; Internal Medicine; ADMIT Family Medicine
PROC: 5A09357 Assistance with Respiratory Ventilation, Less than 24 Consecutive Hours, Continuous Positive Airway Pressure (ICD-10-PCS; principal; 2019-12-06)
PROC: 8E0ZXY6 Isolation (ICD-10-PCS; 2019-12-06)
DX: J44.1 Chronic obstructive pulmonary disease with (acute) exacerbation (principal); J96.02 Acute respiratory failure with hypercapnia; J21.1 Acute bronchiolitis due to human metapneumovirus; E87.2 Acidosis; I50.32 Chronic diastolic (congestive) heart failure; J96.11 Chronic respiratory failure with hypoxia; Z99.81 Dependence on supplemental oxygen; K21.9 Gastro-esophageal reflux disease without esophagitis; N18.3 Chronic kidney disease, stage 3 (moderate); E11.22 Type 2 diabetes mellitus with diabetic chronic kidney disease; I25.10 Atherosclerotic heart disease of native coronary artery without angina pectoris; G47.33 Obstructive sleep apnea (adult) (pediatric); M81.0 Age-related osteoporosis without current pathological fracture; G25.81 Restless legs syndrome; I48.0 Paroxysmal atrial fibrillation; M19.90 Unspecified osteoarthritis, unspecified site; F32.9 Major depressive disorder, single episode, unspecified; Z79.82 Long term (current) use of aspirin; Z87.891 Personal history of nicotine dependence
CPT/HCPCS: 0099U; 36415; 36600; 71045; 80048; 80053; 80069; 82803; 82947; 83880; 84145; 84484; 85025; 87070; 87205; 93005; 93010; 94640; 94660; 94664; 94668; 94760; 94762; 96365; 96366; 96372; 96375; 97110; 97116; 97162; 97165; 97530; 97535; 98960; 99285-25; A9270; A9270-GY; G0378; J0456; J1650; J2920; J7050; J7512

== ENCOUNTER 2020-06-13 17:31 | Emergency (ER) | payer OTHER ==
[~2020-06-13] VITALS: Ht 142.2 cm; Wt 61.2 kg
[~2020-06-13 17:31] MED LIST changes: +FURO20 PO; +Prednisone10 MG PO
== END 2020-06-13 20:45 | disposition home or self-care (01) ==
LOC: ER 17:31
DX: S09.90XA Unspecified injury of head, initial encounter (principal); S70.11XA Contusion of right thigh, initial encounter; J44.9 Chronic obstructive pulmonary disease, unspecified; I48.91 Unspecified atrial fibrillation; Z91.81 History of falling; Z79.02 Long term (current) use of antithrombotics/antiplatelets; Z79.82 Long term (current) use of aspirin; Z95.5 Presence of coronary angioplasty implant and graft; Z88.0 Allergy status to penicillin; Z88.1 Allergy status to other antibiotic agents; Z88.5 Allergy status to narcotic agent; Z88.6 Allergy status to analgesic agent; Z88.8 Allergy status to other drugs, medicaments and biological substances; Z79.899 Other long term (current) drug therapy; W01.198A Fall on same level from slipping, tripping and stumbling with subsequent striking against other object, initial encounter
CPT/HCPCS: 70450; 99283-25

== ENCOUNTER 2020-09-11 12:04 | Inpatient (IN) | payer OTHER ==
[~2020-09-11] VITALS: Ht 162.6 cm; Wt 84.6 kg
[~2020-09-11 12:04] MED LIST changes: +ASPIR 8181 M1 PO; +LANOXIN125 MCG PO; +Plavix75 MG PO; +VENLAFAXINE HC225 MG PO
[2020-09-11 13:16] LABS: Mean Corpuscular HGB 28.8 pg (26.0-34.0); Mean Corpuscular HGB Conc 31.4 g/dL (31.5-36.5); Mean Corpuscular Volume 92 fL (80-100); Mean Platelet Volume 9.9 fL (9.1-12.4); Platelet Count 160 K/mm3 (150-400); RDW Coefficient Variation 14.3 % (11.7-14.2); RDW Standard Deviation 48.2 fL (35.1-46.3); Red Blood Cell Count 3.82 M/mm3 (3.80-5.20); White Blood Cell Count 15.35 K/mm3 (4.00-11.30)
[2020-09-11 13:38] LABS: Albumin, Blood 3.2 g/dL (3.4-5.0); Bilirubin, Total 0.4 mg/dL (0.1-1.0); Bun/Creatinine Ratio 23.2 (12.0-20.0); Calcium, Blood 7.6 mg/dL (8.5-10.1); Creatinine, Blood 1.51 mg/dL (0.40-1.00); Globulin, Blood 3.1 g/dL (2.2-4.0); Potassium, Blood 3.7 mmol/L (3.5-5.5); Total Protein, Blood 6.3 g/dL (6.4-8.2)
[2020-09-11 13:41] LABS: Influenza A, PCR Negative (NEGATIVE); Influenza B, PCR Negative (NEGATIVE); Resp Syncytial Virus, PCR Negative (NEGATIVE); SARS-Cov-2 (COVID-19) PCR, MMC Negative (NEGATIVE)
[2020-09-11 13:42] LABS: BAND PERCENT MAN 9 % (0-8); BASOPHILS PERCENT MAN 0 % (0-2); EOSINOPHILS PERCENT MAN 0 % (0-6); LYMPHOCYTES ABSOLUTE MAN 1.07 K/mm3 (0.84-5.20); LYMPHOCYTES PERCENT MAN 7 % (21-46); METAMYELOCYTE ABSOLUTE MAN 0.61 K/mm3 (0.00-0.00); METAMYELOCYTE PERCENT MAN 4 % (0-0); MONOCYTES PERCENT MAN 2 % (4-13); NEUTROPHILS ABSOLUTE MAN 13.35 K/mm3 (1.96-9.15); SEG NEUTROPHILS PERCENT MAN 78 % (41-73); TOTAL CELLS COUNTED 100
[2020-09-11 17:58] LABS: Source, Urine Clean Catch
[2020-09-11 18:14] LABS: Appearance, Urine Clear (Clear); Bilirubin, Urine Neg (Neg); Blood, Urine 5+ (Neg); Color, Urine Yellow (P-Yellow); Glucose Qualitative, Urine 2+ (Neg); Ketones, Urine Neg (Neg); Leukocyte Esterase, Urine Neg (Neg); Nitrite, Urine Neg (Neg); Protein, Urine 2+ (Neg); Urobilinogen, Urine NORM (Normal)
[2020-09-11 18:41] LABS: Troponin I 0.016 ng/mL (0.000-0.040)
[2020-09-11 18:41] LABS: Bacteria Rare /hpf; Squamous Epithelial Cells Not Seen /hpf (Few); White Blood Cells, Urine Not Seen /hpf (0-5)
[2020-09-11 18:42] LABS: Amorphous Light (0-Heavy)
[2020-09-11] MEDS ORDERED: ENTRESTO 24 MG1 EAC3 PO (18:51)
[2020-09-11] MEDS ORDERED: FUROSEMIDE20 MG PO (18:52)
[2020-09-11] MEDS ORDERED: MYRBETRIQ25 MG PO (18:53)
[2020-09-11] MEDS ORDERED: RIVASTIGMINE1.5 M1 PO (18:53)
[2020-09-11] MEDS ORDERED: GABA100 PO (18:54)
[2020-09-11] MEDS ORDERED: LIPITOR80 MG PO (18:54)
[2020-09-11] MEDS ORDERED: ESCI20 PO (18:54)
[2020-09-11] MEDS ORDERED: TRELEGY ELLIPT1 EACH INH (18:56)
[2020-09-11] MEDS ORDERED: ZYRTEC10 M2 PO (18:57)
--- NOTE | 2020-09-11 23:47 | NUR ---
PT ADMIT FROM ER. TO ICU ROOM 14, SLID TO NEW BED WITH SLIDE SHEET AND ONE OTHER PERSON WITHOUT INCIDENT. PT PALE. PLACED ON CARDIAC/NIBP/O2SAT MONITORING. PT C/O SEVER LEFT HIP PAIN AND SOME BACK PAIN. PT LOG ROLLED OFF OLD LINENS. BLANKETS PROVIDED. PT ORIENTED TO ROOM. PT DROWSY BUT ANSWERS ADMIT QUESTIONS AND IS ABLE TO ASSIST MINIMALLY WITH CARE. PT HAS ELIZALDE DRAINING SMALL AMOUNT OF SHILPA COLORED URINE. PT HAS 18G SL TO LEFT UPPER ARM, DRESSING C/D/I, SITE WNL. PT HAS 20G TO RIGHT HAND WITH DILTIAZEM INF @ 10ML/HR, SITE WNL, DRESSING C/D/I. PT ABD SOFT, NONTENDER. LUNG SOUNDS WHEEZY. PT ON 4L PER NC. PT STATES SHE WEARS O2 AT NIGHT AT HER FACILITY. PT ABLE TO MAKE SMALL CHANGES IN POSITION. CALL LIGHT IN REACH. SEE FULL ADMIT ASSESSMENT.
[2020-09-12 01:37] LABS: International Normalized Ratio 1.11; Prothrombin Time Results 11.8 Sec (9.7-11.5)
[2020-09-12 03:42] LABS: Hematocrit 33.3 % (33.0-51.0); Hemoglobin 10.3 g/dL (11.5-16.0); Mean Corpuscular HGB 28.6 pg (26.0-34.0); Mean Corpuscular HGB Conc 30.9 g/dL (31.5-36.5); Mean Corpuscular Volume 93 fL (80-100); Mean Platelet Volume 10.5 fL (9.1-12.4); Platelet Count 139 K/mm3 (150-400); RDW Coefficient Variation 14.6 % (11.7-14.2); RDW Standard Deviation 50.4 fL (35.1-46.3); White Blood Cell Count 21.59 K/mm3 (4.00-11.30)
[2020-09-12 04:03] LABS: Albumin, Blood 2.5 g/dL (3.4-5.0); Albumin/Globulin Ratio 0.8 (0.8-1.8); Bilirubin, Total 0.5 mg/dL (0.1-1.0); Bun/Creatinine Ratio 22.3 (12.0-20.0); Calcium, Blood 6.5 mg/dL (8.5-10.1); Creatinine, Blood 1.79 mg/dL (0.40-1.00); Globulin, Blood 3.2 g/dL (2.2-4.0); Potassium, Blood 4.2 mmol/L (3.5-5.5); Total Protein, Blood 5.7 g/dL (6.4-8.2)
[2020-09-12 05:24] LABS: BAND PERCENT MAN 18 % (0-8); BASOPHILS PERCENT MAN 0 % (0-2); EOSINOPHILS PERCENT MAN 0 % (0-6); LYMPHOCYTES ABSOLUTE MAN 0.21 K/mm3 (0.84-5.20); LYMPHOCYTES PERCENT MAN 1 % (21-46); MONOCYTES ABSOLUTE MAN 1.29 K/mm3 (0.16-1.47); MONOCYTES PERCENT MAN 6 % (4-13); NEUTROPHILS ABSOLUTE MAN 20.07 K/mm3 (1.96-9.15); SEG NEUTROPHILS PERCENT MAN 75 % (41-73); TOTAL CELLS COUNTED 100
--- NOTE | 2020-09-12 06:30 | NUR ---
SHIFT SUMMARY SHORTLY AFTER PT ADMIT PT SBP <80. DILTIAZEM INF STOPPED, DR RUIZ AWARE AND PT RECEIVED 1 500ML BOLUS WITH NO IMPROVEMENT. PT STARTED ON LEVOPHED PERIPHERALLY UNTIL CL ESTABLISHED TO RIGHT IJ. PLACEMENT CONFIRMED WITH XR. LEVOPHED INF SWITCHED TO CL AND TITRATED ACCORDINGLY. PT REMAINS ALERT AND ORIENTED (ALTHOUGH DROWSY). PT CONTINUES TO BE PALE. SKIN DRY. PT HAS CL TO RIGHT IJ WITH LEVOPHED INF @ 20MCG/MIN, NS INF @ 100ML/HR, DRESSING C/D/I, SITE WNL. PT HAS 18G SL TO LEFT UPPER ARM, SITE WNL, DRESSING C/D/I. PT HAS 20G TO RIGHT HAND SL, DRESSING C/D/I, SITE WNL. PT HAS ELIZALDE DRAINING SHILPA COLORED URINE. MUCOUS MEMBRANES DRY. PT BED TILTED DUE TO PT UNABLE TO TOLERATE HOB BEING ELEVATED DUE TO HIP PAIN. PT RECEIVED 1 DOSE OF FENTANYL THAT IMPROVED PAIN. CALL LIGHT IN REACH, WILL REPORT TO ONCOMING RN.
--- NOTE | 2020-09-12 10:00 | NUR ---
PT RESTING IN BED. A/O X4. DENIES PAIN EXCEPT WHEN SHE HAS A SPASM IN R HIP/LEG. IF SHE MOVES AT ALL SHE IS CRYING OUT IN PAIN. GAVE PT TYLENOL, APPLIED LIDOCAINE PATCH, REPOSITIONED, AND PLACED HEATING PAD. PT STATES SHE HAS HAD BURNING PAIN OVER R KNEE SINCE HAVING BACK SURGERY BUT THE SPASMS ARE NEW. DR. GUPTA UPDATED THIS AM. HAVE BEEN TITRATING LEVOPHED DOWN. NO SIGN OF DISTRESS NOW. CALL LIGHT IN REACH.
--- NOTE | 2020-09-12 17:57 | NUR ---
SHIFT SUMMARY ASSUMED CARE OF PT AT 1200, REPORT FROM PATY PHILIP. PT A&OX 3. ANSWERS QUESTIONS APPROPRIATELY, FOLLOWS COMMANDS. PT C/O PAIN TO HIPS, WORSE ON R SIDE. PT YELLS c TURNS OR CARE. UNABLE TO RAISE HOB D/T PAIN. PLACED PT IN REVERSE [place]. LEVOPHED GTT CONTINUES AT 4 MCG/MIN. CENTRAL LINE TO RIJ, DRESSING C/D/I. ELIZALDE PATENT, DRAINING CLOUDY YELLOW URINE TO GRAVITY. WILL CONTINUE TO MONITOR UNTIL REPORT TO ONCOMING NURSE.
--- NOTE | 2020-09-12 22:54 | NUR ---
UPDATE PT CONVERTED BACK TO AFIB RVR, DISCUSSED WITH DR RUIZ, VERBAL ORDER FOR AMIODORONE BOLUS OF 150MG RECEIVED. PT ONLY C/O IS CONTINUED BACK AND HIP PAIN.
[2020-09-13 03:51] LABS: Hematocrit 36.7 % (33.0-51.0); Hemoglobin 11.5 g/dL (11.5-16.0); Mean Corpuscular HGB 28.4 pg (26.0-34.0); Mean Corpuscular HGB Conc 31.3 g/dL (31.5-36.5); Mean Corpuscular Volume 91 fL (80-100); Mean Platelet Volume 10.5 fL (9.1-12.4); Platelet Count 150 K/mm3 (150-400); RDW Coefficient Variation 14.5 % (11.7-14.2); RDW Standard Deviation 48.6 fL (35.1-46.3); Red Blood Cell Count 4.05 M/mm3 (3.80-5.20); White Blood Cell Count 16.08 K/mm3 (4.00-11.30)
[2020-09-13 04:10] LABS: Albumin, Blood 2.3 g/dL (3.4-5.0); Albumin/Globulin Ratio 0.8 (0.8-1.8); Bilirubin, Total 0.5 mg/dL (0.1-1.0); Calcium, Blood 7.5 mg/dL (8.5-10.1); Creatinine, Blood 1.5 mg/dL (0.40-1.00); Potassium, Blood 3.8 mmol/L (3.5-5.5); Total Protein, Blood 5.3 g/dL (6.4-8.2)
[2020-09-13 04:20] LABS: BAND PERCENT MAN 14 % (0-8); BASOPHILS PERCENT MAN 0 % (0-2); EOSINOPHILS ABSOLUTE MAN 0.16 K/mm3 (0.00-0.68); EOSINOPHILS PERCENT MAN 1 % (0-6); LYMPHOCYTES ABSOLUTE MAN 0.96 K/mm3 (0.84-5.20); LYMPHOCYTES PERCENT MAN 6 % (21-46); MONOCYTES ABSOLUTE MAN 0.48 K/mm3 (0.16-1.47); MONOCYTES PERCENT MAN 3 % (4-13); NEUTROPHILS ABSOLUTE MAN 14.47 K/mm3 (1.96-9.15); SEG NEUTROPHILS PERCENT MAN 76 % (41-73); TOTAL CELLS COUNTED 100
--- NOTE | 2020-09-13 06:42 | NUR ---
SHIFT SUMMARY PT REMAINS ALERT AND ORIENTED. STILL C/O SIGNIFICANT PAIN TO HIPS/BACK/NECK. FAMILY REQUESTING AN MRI. PT SKIN C/D/I. ELIZALDE DRAINING SHILPA COLORED URINE. PT CONTINUES WITH NIBP/CARDIAC/SAT MONITORING. BP LABILE. LEVOPHED INF AT 10MCG/MIN. HR AFIB IN 80S. SATS >92% ON 2L. PT DENIES N/V. PASSING GAS. ABD SOFT AND NONTENDER. PT ABLE TO MOVE EXT AND ASSIST MINIMALLY WITH MOVES AND REPOSITIONS. PT GETS MINIMAL RELEIF FROM MEDICATIONS IN REGARDS TO BACK PAIN. PT HAS CL TO RIGHT IJ, DRESSING C/D/I, SITE WNL. PT HAS 18G TO DUNCAN, DRESSING C/D/I AND SITE WNL. PT HAS 20G TO RIGHT HAND, DRESSING C/D/I, SITE WNL. PT USES CALL LIGHT APPROPRIATELY, TOLERATING CLEAR LIQUIDS. TAKES PILLS WHOLE. WILL REPORT TO ONCOMING RN.
--- NOTE | 2020-09-13 10:52 | NUR ---
0800 PT IS AWAKE AND C/O PAIN THAT SEEMS TO PRIMARILY BE IN THE LOW BACK. THERE IS UNDERLING RESTLESS LEG ISSUES AND SEEMS TO BE TWINGES OF PAIN THAT COME AND GO. PO AND IV PAIN MEDS GIVEN TO ADDRESS PAIN AND THIS DID HELP FOR A PERIOD OF TIME AND PT SLEPT FOR ABOUT 45 + MINUTES. HOWEVER SHE IS NOW (0950) HAVING INTERMITTENT PAIN AND WILL FOLLOW UP WITH DR SHAH. HAVE SPOKEN WITH PT FAMILY AND PROGRESS REPORT.
--- NOTE | 2020-09-13 14:09 | NUR ---
REMAINS IN A-FIB WITH HR SLOWING NOTED ON CARDIZEM GTT 15MG. VASOPRESSIN ALSO STARTED AND INFUSIING VIA CENTRAL LINE. VANCOMYCIN ALSO STARTED. PT AWAKE AND RESTING W/O ACUTE DISTRESS. WILL ATTEMPT SMALL PO INTAKE.
--- NOTE | 2020-09-13 16:48 | NUR ---
Echocardiogram completed by Dalila Rayo under my supervision.
--- NOTE | 2020-09-13 17:27 | NUR ---
Spiritual care note: Ms. Regan appears quite frail and very weak. Per admit trigger, I was tasked to speak to her about her code status. She is satisfied being a full-code and tells me she loves her family too much to "give up." She is very concerned about being in pain and is worried that there has not been a clear answer or path going forward. She feels well-loved and supported by her family and was appreciaitve of prayer. I assured her of excellent care and attention. We had a good rapport, and I will remain available to pt and family.
--- NOTE | 2020-09-13 17:47 | NUR ---
PT HAS REQUIRED FREQUENT MOVEMENT AND MEDS NOTED TO MANNAGE PAIN. PAIN IS NOT TOTALLY MANNAGED BUT IS VASTLY IMPROVED WITH INC. FREQUENCY OF PAIN MEDS. IVF NOTED AND HAVE BEEN TITRATING MEDS DOWN NOTED.
--- NOTE | 2020-09-13 18:42 | NUR ---
PT DAUGHTER CALLED IN AND REQUESTED 10 MIMUTES TO TALK WITH PT TO MAKE SURE SHE WAS "RIGHT WITH GOD." THIS REQUEST WAS APPROVED THROUGH THE NURSING SUPERVISOR PLATE PASTING.
--- NOTE | 2020-09-13 20:11 | NUR ---
ASSUMED CARE OF PT, BEDSIDE REPORT RECEIVED. PT IS RESTING QUIETLY RECLINING IN BED, STATES THAT SHE NEEDS TO REPOSITION AND REQUESTS ASSISTANCE WITH PILLOW PLACEMENT FOR COMFORT. PAIN MEDICATION REGIMEN DISCUSSED FOR THIS SHIFT PT'S CHIEF COMPLAINT AT THIS TIME IS BACK AND NECK PAIN RELATED TO MUSCLE SPASMS AND STIFFNESS, FLEXERIL IS AVAILABLE AND ADMINISTERED WILL MONITOR FOR OUTCOME, NEXT AVAILABLE FENTANYL DOSE IS DISCUSSED WITH PT. SHE IS NOTED TO BE SPEAKING IN SHORT SENTENCES WITH VISIBLE ACCESSORY USAGE FOR INSPIRATION AND PROLONGED EXPIRATORY PHASE, SHE ADMITS TO SHORTNESS OF BREATH AND REQUESTS UDN WHICH SHE STATES HAS BEEN EFFECTIVE IN IMPROVING HER SHORTNESS OF BREATH. LUNGS ARE TIGHT THROUGHOUT, SATS LOW 90S WITH OXYGEN VIA NASAL CANNULA. HRR, NOTED SINUS WITH BBB, LEVOPHED AND VASOPRESSIN INFUSING, TITRATED LEVOPHED DOWN X 3 THROUGHOUT COURSE OF HS ASSESSMENT WILL CONT TO TITRATE TOLERATED. BOWEL TONES ARE NOTED THROUGHOUT, ABD FIRM, NO GRIMACING WITH LIGHT PALPATION. ELIZALDE IN PLACE DRAINING ADEQUATE URINE AT THIS TIME.
--- NOTE | 2020-09-13 22:08 | NUR ---
PT WITH AUDIBLE WHEEZE, LUNG SOUNDS ARE TIGHT, RATE MID TO UPPER 20S, SATS MAINTAINING WITH OXYGEN VIA NASAL CANNULA AT 3 L/MIN, DISCUSSED WITH DR BALDWIN, NEW ORDERS OBTAINED AND RT NOTIFIED. WILL CONT TO MONITOR.
--- NOTE | 2020-09-13 23:12 | NUR ---
GRANDDAUGHTER UPDATE RETURNED OJ RANGEL'S CALL. UPDATED REGARDING INCREASED WORK OF BREATHING AND NEW UDN ORDERS WELL POSSIBILITY OF BIPAP USE THIS SHIFT IF UDN IS INEFFECTIVE FOR DECREASING WORK OF BREATHING. GRANDNEOUGHTER HAS QUESTIONS REGARDING MRSA AND NEED FOR CONCERN OF CROSS CONTAMINATION IN HOUSEHOLD. EDUCATION PROVIDED, WILL PLACE MRSA PAMPHLET IN PT ROOM FOR GRANDONIEL TO FUR DRESSING SUPERVISOR TOMORROW WHEN SHE VISITS PT. OJ STATES THAT PT HAD A DEEP CLEANING/SCALING DONE AT THE DENTISTS OFFICE THE WEEK PRIOR TO MARIAN[place] AND [place]OND[place] IF THAT PROCEDURE COULD BE RELATED TO SOURCE OF CURRENT SEPSIS, SHE STATES THAT SHE SPOKE WITH DENTIST'S OFFICE REGARDING PT'S CURRENT HOSPITALIZATION AND DIAGNOSIS AND THAT THE DENTIST'S OFFICE RECOMMENDS DENTAL X-RAYS TO EVALUATE. SHE REQUESTS THIS INFORMATION BE PASSED ON TO PT'S PHYSICIAN. WILL REPORT THIS REQUEST TO DAY SHIFT RN.
--- NOTE | 2020-09-14 00:52 | NUR ---
MUSCLE SPASMS PT NOTED CRYING OUT IN PAIN STARTING AT 2330, DESCRIBES GRABBING PAIN TO LEFT LEG, INQUIRED REGARDING SIMILARITY TO PAIN FROM MUSCLE SPASMS/CRAMPS, PT STATES THAT YES, THIS IS THE SAME. LEFT LATERAL/POSTERIOR THIGH IS PALPATED AND MUSCLE TENSION IS NOTED, PT REPORTS RELIEF FROM PAIN WHEN LEG IS MASSAGED UNTIL MUSCLE TENSION IS NO LONGER FELT. CALL PLACED TO DR RUIZ REGARDING MUSCLE SPASMS, ORDERS RECEIVED FOR VALIUM 2.5 MG IV Q 8 HOURS PRN FOR SPASMS, THIS IS ADMINISTERED WITH GOOD RELIEF OF PAIN PER PT. WILL CONT TO MONITOR.
[2020-09-14 04:18] LABS: BASOPHILS ABSOLUTE AUTO 0.02 K/mm3 (0.00-0.23); BASOPHILS PERCENT AUTO 0 % (0-2); EOSINOPHILS ABSOLUTE AUTO 0.08 K/mm3 (0.00-0.68); EOSINOPHILS PERCENT AUTO 1 % (0-6); Hematocrit 29.4 % (33.0-51.0); Hemoglobin 9.1 g/dL (11.5-16.0); IMMATURE GRAN ABSOLUTE AUTO 0.12 K/mm3 (0.00-0.10); IMMATURE GRAN PERCENT AUTO 1 % (0-1); LYMPHOCYTES ABSOLUTE AUTO 0.81 K/mm3 (0.84-5.20); LYMPHOCYTES PERCENT AUTO 7 % (21-46); MONOCYTES ABSOLUTE AUTO 0.81 K/mm3 (0.16-1.47); MONOCYTES PERCENT AUTO 7 % (4-13); Mean Corpuscular HGB 28.5 pg (26.0-34.0); Mean Corpuscular Volume 92 fL (80-100); Mean Platelet Volume 10.6 fL (9.1-12.4); NEUTROPHILS ABSOLUTE AUTO 9.86 K/mm3 (1.96-9.15); NEUTROPHILS PERCENT AUTO 84 % (41-73); Platelet Count 106 K/mm3 (150-400); RDW Coefficient Variation 14.5 % (11.7-14.2); RDW Standard Deviation 49.4 fL (35.1-46.3); Red Blood Cell Count 3.19 M/mm3 (3.80-5.20)
[2020-09-14 04:38] LABS: Albumin, Blood 3.4 g/dL (3.4-5.0); Anion Gap 2 mmol/L (6-16); Blood Urea Nitrogen 36 mg/dL (8-24); Bun/Creatinine Ratio 30.8 (12.0-20.0); CO2, Blood 30 mmol/L (21-32); Calcium, Blood 8.1 mg/dL (8.5-10.1); Chloride, Blood 110 mmol/L (98-108); Creatinine, Blood 1.17 mg/dL (0.40-1.00); Glomerular Filtration Rate 47 (60-); Glucose, Blood 130 mg/dL (70-99); Potassium, Blood 4.5 mmol/L (3.5-5.5); Sodium, Blood 142 mmol/L (136-145); Vancomycin, Random 12.9 ug/mL
--- NOTE | 2020-09-14 06:01 | NUR ---
PT PAIN REMAINED CHIEF COMPLAINT THROUGHOUT MOST OF THIS SHIFT. SHE DID HAVE COMPLAINTS OF CRAMP LIKE PAIN TO LOWER EXTREMITIES BILAT AND MUSCLE SPASMS WERE PALPABLE TO LATERAL/POSTERIOR THIGH AND CALF AREAS, GENTLE MASSAGE RELIEVED SPASM HOWEVER SPASMS WOULD RETURN WITHIN 5 MINUTES OF RELIEF. MD WAS NOTIFIED AND VALIUM IV ORDERED, PT REPORTED COMPLETE RELIEF OF SPASMS WITH VALIUM 2.5 MG IV ADMINISTERED ONCE THIS SHIFT. SHE CONTINUED TO HAVE LOW BACK AND NECK PAIN WITH LITTLE TO NO RELIEF WITH FENTANYL IV PER ORDERS. THIS WAS ALSO DISCUSSED WITH MD AND DILAUDID 1-2 MG IV EVERY 8 HOURS NEEDED WAS INITIALLY ORDERED. DILAUDID 1 MG IV WAS ADMINISTERED SLOWLY OVER GREATER THAN 5 MINUTES AND WAS PAUSED AT 0.5 MG ADMINISTERED AND PT WAS NOTED TO TOLERATE THIS DOSE FOR APPROXIMATELY 10 MINUTES FOLLOWING WHICH RESPIRATIONS WERE NOTED TO DECREASE TO 12-14 AND SATS DECREASED TO UPPER 80S, HEAD OF BED WAS ELEVATED AND IMPROVEMENT WAS NOTED. CONCERN FOR POSSIBILITY OF GREATER THAN 1 MG IV BEING ADMINISTERED AT 1 TIME WAS DISCUSSED WITH DR RUIZ AND DOSE AND INTERVAL WERE DECREASED. PT HAS REPORTED THAT HER PAIN IS GREATLY IMPROVED FOLLOWING DILAUDID ADMINISTRATION HOWEVER DID NOT PROVIDE NUMERIC PAIN SCALE. SHE HAS CONTINUED IN SINUS RHYTHM WITH BUNDLE BRANCH BLOCK THROUGHOUT NOC, PRESSURES HAVE MAINTAINED AND PRESSORS WERE TITRATED DOWN TO OFF PRIOR TO MIDNOC, SEE ICU FLOW SHEET FOR TIMES. SHE CONTINUES TO HAVE DIMINISHED LUNG SOUNDS WITH EXPIRATORY WHEEZES THROUGHOUT NOC, LUNG SOUNDS DO IMPROVE SOMEWHAT FOLLOWING DUONEB ADMINISTRATION AND WHEEZES BECOME MORE AUDIBLE.
--- NOTE | 2020-09-14 09:08 | NUR ---
PT REMAINS DROWSY FROM PRIOR MEDS AND ABLE TO RESPOND. PT EXPERIENCING PAIN WITH MOVEMENT BUT IS ABLE TO RETURN BACK TO SLEEP. PT O2 IS IN MOUTH DUE TO MOUTH BREATHING. ONLY NS AT 60 ML INFUSING. DAUGHTER CALLED IN AND UPDATED ON PT STATUS. WILL DELAY PO MEDS FOR NOW WITH PT BEING DROWSY.
--- NOTE | 2020-09-14 11:44 | NUR ---
PT REMAINS SOMEWHAT DROWSY AND O2 EVEN WITH MOUTH BREATHNG SATS SAGGED TO 87-88 RANGE. PT VS ADIQUATE. SOME CONCERN REMAINS RE PT ABILITY TO LY FLAT FOR MRI. WILL FOLLOW AND ASSESS FOR PT SAFETY.
--- NOTE | 2020-09-14 17:19 | NUR ---
1440 PT TO MRI WITH MONITOR AND TECH X2. VSS. SATS WERE MONITORED IN MRI AND REMAINS > 92 WITH HR 78-82. THE MRI WAS CONCLUDED AND PT WAS RETURNED TO ICU-14 W/O FURTHER INCIDENT. PT G-DAUGHTER AND MOLDER FOAM RUBBER WERE IN TO SEE PT AND PRAY WITH HER. PT PAIN IS NOT TOTALLY CONTROLLED BUT PT WILL BECOME DROSY AND FALL TO SLEEP WHEN LEFT ALONE. VSS AND SATS ADIQUATE ON 3L.
--- NOTE | 2020-09-14 17:28 | NUR ---
REPORT GIVEN TO JESSICA RN AND PT IS LIGHTLY SLEEPING. DR BALDWIN IS AWARE OF PT STATUS AND NO NEW ORDERS AT THIS TIME.
--- NOTE | 2020-09-14 17:28 | NUR ---
Spiritual care note: Provided comfort and encouragement to grand-daughter, Aleja. Family trim stencil maker also present. Pt was in CT scan at time of visit. Family appreciaitve of continued prayer and spiritual support. Young states she feels "relieved" that pt is "a little better today." I attempted to see pt x2 today. She was sleeping peacefully. I will remain available.
--- NOTE | 2020-09-14 17:32 | NUR ---
PT IS RESTING WELL WITH SLIGHT REPOSTIONING AND COMFORT MEASURES. PT NOT GIVEN FURTHER MEDS AT THIS TIME DUE TO DROWSY STATE. VSS, SATS ADIQUATE ON 3L. PT HAS BEEN IN SINUS WITH BB.
--- NOTE | 2020-09-14 21:30 | NUR ---
ASSUMED CARE. PT WAS DOZING DURING SHIFT CHANGE. PT OCCASIONALLY MOANS, AND TALKS WHILE APPEARING TO BE RESTING. PT WAS REPOSTIONED AND CO SPASM LIKE PAIN TO HER LOWER BACK- SIDE TO SIDE. PT ALSO CO NECK PAIN. BECAUSE PT SEEMED SO SEDATED AND YET CONT W PAIN, PT WAS MED W FLEXERIL & TYLENOL. PT SWALLOWED PILLS WO ANY DIFFICULTY AND TOLERATED ORAL CARE. PT IS NOTED W EXP WHEEZING,ON 3L NC, IMPROVES MINIMALLY AFTER UDN, PT HAS DRY NON-PRODUCTIVE COUGH W GOOD EFFORT. CALL LIGHT IN REACH
[2020-09-15 04:00] LABS: BASOPHILS ABSOLUTE AUTO 0.02 K/mm3 (0.00-0.23); BASOPHILS PERCENT AUTO 0 % (0-2); EOSINOPHILS ABSOLUTE AUTO 0.09 K/mm3 (0.00-0.68); EOSINOPHILS PERCENT AUTO 1 % (0-6); Hematocrit 29.5 % (33.0-51.0); Hemoglobin 9.2 g/dL (11.5-16.0); IMMATURE GRAN ABSOLUTE AUTO 0.22 K/mm3 (0.00-0.10); IMMATURE GRAN PERCENT AUTO 2 % (0-1); LYMPHOCYTES ABSOLUTE AUTO 0.65 K/mm3 (0.84-5.20); LYMPHOCYTES PERCENT AUTO 7 % (21-46); MONOCYTES ABSOLUTE AUTO 0.85 K/mm3 (0.16-1.47); MONOCYTES PERCENT AUTO 9 % (4-13); Mean Corpuscular HGB 28.5 pg (26.0-34.0); Mean Corpuscular HGB Conc 31.2 g/dL (31.5-36.5); Mean Corpuscular Volume 91 fL (80-100); Mean Platelet Volume 10.2 fL (9.1-12.4); NEUTROPHILS PERCENT AUTO 82 % (41-73); Platelet Count 102 K/mm3 (150-400); RDW Coefficient Variation 14.7 % (11.7-14.2); RDW Standard Deviation 49.8 fL (35.1-46.3); Red Blood Cell Count 3.23 M/mm3 (3.80-5.20); White Blood Cell Count 9.93 K/mm3 (4.00-11.30)
[2020-09-15 04:16] LABS: Albumin, Blood 2.9 g/dL (3.4-5.0); Anion Gap 4 mmol/L (6-16); Blood Urea Nitrogen 37 mg/dL (8-24); Bun/Creatinine Ratio 31.4 (12.0-20.0); CO2, Blood 28 mmol/L (21-32); Calcium, Blood 8.4 mg/dL (8.5-10.1); Chloride, Blood 112 mmol/L (98-108); Creatinine, Blood 1.18 mg/dL (0.40-1.00); Glomerular Filtration Rate 46 (60-); Glucose, Blood 107 mg/dL (70-99); Phosphorus, Blood 2.7 mg/dL (2.5-4.9); Potassium, Blood 4.2 mmol/L (3.5-5.5); Sodium, Blood 144 mmol/L (136-145); Vancomycin, Random 15.9 ug/mL
--- NOTE | 2020-09-15 06:00 | NUR ---
PT HAS BEEN RESTLESS MOST OF NOC AND HAS CO LOW, SPASMLIKE BACK PAIN ALL NIGHT. AT THIS MOMENT, PT IS RESTING QUIETLY. WAS MED W FLEXERIL, VALIUM, AND TYLENOL AT 0410. PT HAS BEEN ABLE TO COMMUNICATE NEEDS, AND EVEN HAS A SENSE OF HUMOR DESPITE HER DISCOMFORT. USES CALL LIGHT. SPOKE W DAUGHTER HENRI EARLY IN SHIFT AND GAVE UPDATE. [facility].
--- NOTE | 2020-09-15 08:05 | NUR ---
INITIAL ASSESSMENT PATIENT SLEEPING SOUNDLY UPON ENTERING ROOM. PATIENT WAKES EASILY TO VERBAL STIMULI. PATIENT ALERT AND ORIENTED X 4, AFEBRILE. PATIENT SLOW TO RESPOND. SPEECH MUMBLED. PATIENT RECEIVING PRN PAIN MEDICATIONS FOR COMPLAINTS OF LOW BACK PAIN. PATIENT WEAK BUT ABLE TO MOVE ALL EXTREMITIES. LUNGS COARSE AND WHEEZY THROUGHOUT. PATIENT SATTING 90% AND GREATER ON 2 L NC. PATIENT STATES SHE WEARS 2 L NC AT HOME AT NIGHT ONLY. PATIENT SOB WITH EXERTION. BREATHING LABORED. NONPRODUCTIVE COUGH NOTED. PATIENT IN SR WITH BBB. HR 60S TO 70S. SBP 90S WHEN SLEEPING; UP TO 160S WHEN AWAKE. NONPITTING EDEMA NOTED IN BUES AND ABDOMEN. 1+ EDEMA NOTED TO BLES. ABDOMEN MILDLY DISTENDED, SOFT, WITH HYPERACTIVE BS NOTED. DATE OF LAST BM UNKNOWN. ELIZALDE DRAINING YELLOW, CLOUDY COLORED URINE WITH SEDIMENT NOTED. SKIN PALE. MUCOUS MEMBRANES DRY. SCATTERED BRUISES NOTED T/O. LIDOCAINE PATCH TO LOWER BACK FOR PAIN. NS INFUSING AT 60 MLS/ HOUR WHEN CAME ON SHIFT; TKO AT THIS TIME UNTIL SPEAK WITH DOCTOR. BED LOW, CALL LIGHT IN REACH. WILL CONTINUE TO MONITOR PATIENT FREQUENTLY THROUGHOUT SHIFT.
[2020-09-15] MEDS ORDERED: KLONOPIN0.5 MG PO (10:26)
--- NOTE | 2020-09-15 10:40 | NUR ---
DOCTOR DONTAE UPDATED ON PATIENT. INFORMED THAT LUNGS COARSE AND WHEEZY THIS AM. INFORMED THAT NS PLACED ON TKO BUT HAD BEEN INFUSING AT 60 MLS/ HOUR. INFORMED THAT PATIENT HAS HAD SOME WEIGHT GAIN IN LAST COUPLE OF DAYS. INFORMED THAT PATIENT USUALLY TAKES SPIRINOLACTONE AND LASIX AT HOME. INFORMED THAT PATIENT ONLY HAD 500 MLS OF URINE OUT LAST NIGHT AND THAT IT IS NEWLY CLOUDY IN COLOR. INFORMED THAT PATIENT HAS HX OF CHF AND EF OF 38%.
[2020-09-15 11:49] LABS: Source, Urine Catheter
[2020-09-15 11:54] LABS: Appearance, Urine Hazy (Clear); Bilirubin, Urine Neg (Neg); Blood, Urine 5+ (Neg); Color, Urine Yellow (P-Yellow); Glucose Qualitative, Urine Neg (Neg); Ketones, Urine Neg (Neg); Leukocyte Esterase, Urine 2+ (Neg); Nitrite, Urine Neg (Neg); Protein, Urine 2+ (Neg); Urobilinogen, Urine NORM (Normal)
[2020-09-15 12:20] LABS: Amorphous Heavy (0-Heavy); Bacteria Many /hpf; Mucus Light (0-Heavy); Squamous Epithelial Cells Few /hpf (Few)
--- NOTE | 2020-09-15 12:30 | NUR ---
PATIENT AFEBRILE. PATIENT GIVEN PRN VALIUM AND TYLENOL FOR COMPLAINTS OF 10/10 BACK PAIN/ SPASMS. PATIENT ANXIOUS AT TIMES. PATIENT HAS INCREASED WOB AND INCREASED RR. PATIENT SATTING 90% AND GREATER ON 2 TO 5 L NC. HR IN THE 90S. SBP LOW 100S TO 190S. ANOTHER UA SENT FOR NEW CLOUDINESS. IV LASIX GIVEN FOR LUNG WHEEZING AND COARSENESS. PATIENT HAS POOR APPETITE. BLOOD SUGAR OF 158; COVERAGE GIVEN BASED ON DUNCAN. NO OTHER ACUTE CHANGES TO NOTE ON AT THIS TIME. WILL CONTINUE TO MONITOR.
--- NOTE | 2020-09-15 16:10 | NUR ---
PATIENT SATTING 90% AND GREATER ON 4 L NC. HR 80S TO LOW 100S. SBP 120S TO 140S. BLOOD SUGAR OF 148; NO COVERAGE INDICATED. NO OTHER ACUTE CHANGES TO NOTE ON AT THIS TIME.
--- NOTE | 2020-09-15 18:00 | NUR ---
Spiritual care note: Prayer provided at bedside. Mrs. Regan complains of pain. RN present and attentive. Pt appears frail and tired. Visit kept short. I will remain available to pt and family.
--- NOTE | 2020-09-15 18:30 | NUR ---
SHIFT SUMMARY PATIENT SLEPT ON AND OFF THROUGHOUT SHIFT. PATIENT REMAINED ALERT AND ORIENTED X 4. PATIENT REMAINED AFEBRILE. PATIENT ANXIOUS AT TIMES. PATIENT GIVEN PRN DILAUDID, FLEXERIL, TYLENOL AND VALIUM FOR COMPLAINTS OF BACK AND NECK PAIN. LUNGS REMAINED COARSE AND WHEEZY AND BREATHING LABORED UNTIL PATIENT RECEIVED 40 MG IV LASIX. PATIENT REMAINED SOB WITH EXERTION. PATIENT CONTINUED TO HAVE NONPRODUCTIVE COUGH. PATIENT ON 1 TO 5 L NC TO KEEP SATS 90% AND GREATER. PATIENT REMAINED IN SR TO ST WITH BBB. HR 60S TO LOW 100S. SBP 90S TO 190S. NONPITTING EDEMA TO BUES AND 1+ EDEMA TO BLES REMAINS. NO BM THIS SHIFT. PATIENT HAD POOR APPETITE. ELIZALDE DRAINED 1905 MLS OF URINE AFTER IV LASIX GIVEN. NO CHANGE TO SKIN. PATIENT REPOSITIONED THROUGHOUT SHIFT. PATIENT STARTED ON SOLUMEDROL THIS SHIFT. NEW UA SENT TO LAB. PATIENT APPEARS CONTENT AT THIS TIME. BED LOW, CALL LIGHT IN REACH. REPORT WILL BE GIVEN TO ASSUMING PROP ATTENDANT NURSE SHORTLY.
[2020-09-16 03:56] LABS: Hematocrit 29.9 % (33.0-51.0); Hemoglobin 9.6 g/dL (11.5-16.0); Mean Corpuscular HGB 28.5 pg (26.0-34.0); Mean Corpuscular HGB Conc 32.1 g/dL (31.5-36.5); Mean Corpuscular Volume 89 fL (80-100); Mean Platelet Volume 10.7 fL (9.1-12.4); Platelet Count 123 K/mm3 (150-400); RDW Coefficient Variation 14.7 % (11.7-14.2); RDW Standard Deviation 47.6 fL (35.1-46.3); Red Blood Cell Count 3.37 M/mm3 (3.80-5.20); White Blood Cell Count 7.85 K/mm3 (4.00-11.30)
[2020-09-16 04:14] LABS: Albumin, Blood 2.5 g/dL (3.4-5.0); Anion Gap 5 mmol/L (6-16); Blood Urea Nitrogen 37 mg/dL (8-24); CO2, Blood 29 mmol/L (21-32); Calcium, Blood 8.8 mg/dL (8.5-10.1); Chloride, Blood 110 mmol/L (98-108); Glomerular Filtration Rate 56 (60-); Glucose, Blood 208 mg/dL (70-99); Phosphorus, Blood 4.1 mg/dL (2.5-4.9); Potassium, Blood 4.1 mmol/L (3.5-5.5); Sodium, Blood 144 mmol/L (136-145); Vancomycin, Random 16.8 ug/mL
[2020-09-16 04:20] LABS: BAND PERCENT MAN 14 % (0-8); BASOPHILS PERCENT MAN 0 % (0-2); EOSINOPHILS PERCENT MAN 0 % (0-6); LYMPHOCYTES ABSOLUTE MAN 0.31 K/mm3 (0.84-5.20); LYMPHOCYTES PERCENT MAN 4 % (21-46); MONOCYTES ABSOLUTE MAN 0.15 K/mm3 (0.16-1.47); MONOCYTES PERCENT MAN 2 % (4-13); MYELOCYTE ABSOLUTE MAN 0.23 K/mm3 (0.00-0.00); MYELOCYTE PERCENT MAN 3 % (0-0); NEUTROPHILS ABSOLUTE MAN 7.14 K/mm3 (1.96-9.15); SEG NEUTROPHILS PERCENT MAN 77 % (41-73); TOTAL CELLS COUNTED 100
--- NOTE | 2020-09-16 05:30 | NUR ---
SHIFT SUMMARY PT RESTED THROUGH NIGHT. ALERT AND ORIENTED - ABLE TO MAKE NEEDS KNWN. TELE AFIB. SATS >90% ON 2LNC. ELIZALDE IN PLACE - HARIKA CARE PERFORMED, DRAINING TO GRAVITY. NO BM. Q2 TURNS. C/O SEVERE R HIP/BACK/NECK PAIN. TYLENOL GIVEN, DILAUDID GIVEN, BUT DOES TEND TO DROP PT BP FAST. PT SEEMS VERY UNCOMFORTABLE AND C/O OF NEVER HAVING ANY PAIN RELIEF. STATES SHE "WANTS TO BLOW HER BRAINS OUT" - FEELING DEFEATED AND IS TEARFUL AT TIMES. CALL LIGHT WITHIN REACH, BED IN LOWEST POSITION. WILL CONTINUE TO MONITOR.
--- NOTE | 2020-09-16 08:45 | NUR ---
ASSUMED CARE BEDSIDE REPORT RECIEVED. PT IS RESTING QUIETLY UPON ENTERING ROOM. PT AWAKENS EASILY TO VERBAL STIMULI. PT IS ALERT AND ORIENTED. PT FOLLOWS DIRECTIONS WELL. PT COMPLAINS OF LOWER BACK PAIN AT THIS TIME. PT MED PER EMAR. CENTRAL LINE TO [facility] C/D/I, SALINE LOCKED. VITAL SIGNS STABLE, PT ON 4L O2 NC. ELIZALDE IN PLACE WITH YELLOW URINE OUTPUT NOTED. PT TOLERATED BREAKFAST WELL. WILL CONTINUE TO MONITOR.
--- NOTE | 2020-09-16 10:42 | NUR ---
RESPIRATORY DECOMPENSATION PT TO BE FOUND YELLING OUT FROM ROOM, MONITOR SHOWING HR 130'S AND SPO2 68%. PT O2 VIA NC INCREASED TO 15L, RT CALLED. PT APPEARS ANXIOUS. COACHED PT TO IMPROVE BREATHING AND MINIMIZE YELLING OUT. PT PLACED ON NONREBREATHER AT 15L. PT SPO2 RECOVERED AT THIS TIME. PT REMAINS ANXIOUS. WILL CONTINUE TO MONITOR.
--- NOTE | 2020-09-16 17:16 | NUR ---
Spiritual care note: Mrs. Regan appears a bit better today. She is perky and conversant. Her grand-daughter was at bedside. I rpovided prayer and encouragement to good effect. Mrs. Regan believes that, in order to get to Heaven, "You have to fight against ." Performance Reporter services will remain available.
--- NOTE | 2020-09-16 18:19 | NUR ---
SHIFT SUMMARY PT DOING BETTER THIS EVENING. PT IS AWAKE, ALERT, AND ORIENTED. PT WITH NO MORE EPISODES OF ANXEITY AND PANIC. PT RESPIRATORY STATUS HAS REMAINED STABLE SINCE THIS AM WITH PT CURRENTLY ON 6L O2 VIA NC. VITAL SIGNS STABLE. PT HR AFIB FOR SOME TIME TODAY, THEN CONVERTED BACK TO NSR THIS AFTERNOON. PT TOLERATING PO INTAKE WELL. CENTRAL LINE TO RIJ REMAINS IN PLACE, TO BE REMOVED PER DR DIGGS. PICC TO RONNY PLACED THIS EVENING, SALINE LOCKED. ELIZALDE REMAINS IN PLACE WITH YELLOW URINE OUTPUT NOTED. PT BRIGID AT BEDSIDE THIS AFTERNOON. WILL CONTINUE TO MONITOR AND REPORT OFF TO ONCOMING RN.
--- NOTE | 2020-09-16 21:00 | NUR ---
ASSUMPTION OF CARE PT RESTING IN BED, ORIENTED TO SELF, EVENT, YEAR, PLACE AND FOLLOWING DIRECTIONS. PT REPORTS BACK AND LEG PAIN, THAT IS RELEIVED WITH REPOSITIONING AND REST. PT ON 6L PER NC TO MAINTAIN O2 SATURATIONS> 90%. MONITOR SHOWS SINUS RHYTHM WITH HR 60'S-70'S, BP STABLE. PT TOLERATES PO FLUIDS, SWALLOWS PILLS WHOLE WITH WATER, ONE AT A TIME. ELIZALDE IN PLACE, DRAINING CLOUDY YELLOW URINE. PT WITH WEAKNESS T/O, ABLE TO MAKE SMALL REPSOTIONS IN BED INDEPENDENTLY, ASSISTANCE PROVIDED TO REPOSITION PT FOR COMFORT. CALL LIGHT WTIHIN REACH, PT USING APPROPRIATELY.
--- NOTE | 2020-09-16 22:00 | NUR ---
O2 SATURATIONS O2 SATURATIONS DECREASING TO 84-88%, PT VERY COARSE AND WHEEZY, PRN BREATHING TREATMENT ADMINISTERED PER RT. MILD CONFUSION NOTED, PT STS SHE THOUGHT SHE WAS AT SOMEONE'S HOUSE, ABLE TO RE-ORIENT PT. PT PLACED ON 10L PER OXYMIZER WITH O2 SATURATIONS INCREASING TO 90-92%. PT CONTINUES TO CLEAR OWN SECRETIONS.
--- NOTE | 2020-09-17 06:50 | NUR ---
SHIFT SUMMARY PT SLEPT T/O MUCH OF NIGHT, INCREASE IN OXYGEN NEEDS TO 10L PER OXYMIZER (SEE PREVIOUS NOTE), TITRATED BACK TO 6L PER NC @ APPROX 0530. MONITOR SHOWS SINUS RHYTHM WITH HR 70'S-80'S, HYPERTENSION NOTED. PT TOLERATING PO FLUID INTAKE. ELIZALDE IN PLACE WITH GOOD OUTPUT. PT REPORTS BACK PAIN, RELEIVED WITH FLEXERIL AND REPOSITIONING AND REST. CALL LIGHT WITHIN REACH, PT USING APPROPRIATELY.
--- NOTE | 2020-09-17 18:08 | NUR ---
SHIFT NOTE PT HAS BEEN UP TO BEDSIDE CHAIR FOR HALF OF THE DAY WHICH SHE TOLERATES WELL. PT REMAINS ON 5L O2 VUA NC, WHEN TITRATING O2 DOWN TO 3L PT SLOWLY DESATURATES AND REQUIRES MORE O2. PT BECOMES EASILY AGITATED T/O THE DAY, BUT IS COOPERATIVE FOR THE MOST PART. FAMILY HAS BEEN IN TO SEE PT TODAY. PT ENQUIRED ABOUT FULL LIQUID DIET ANDD IS REMINDED THAT SHE ALSO DESATURATES WITH EATING. VSS THIS SHIFT. SINUS RHYTHM NOTED WITH BBB ON MONITOR. PT DID COMPLAIN BRIEFLY OF HIP PAIN WHICH RESOLVED WITH REPOSITIONING
--- NOTE | 2020-09-17 19:25 | NUR ---
ASSUMED CARE RECEIVED REPORT FROM [facility]HARN; PT A&O X4; DENIES CHEST PAIN; VSS; O2 SATS >93 ON 5L NC; RT AT BEDSIDE FOR BREATHING TX; PT WATCHING TV W/ NO DISTRESS NOTED; CALL LIGHT IN REACH; BED IN LOWEST POSITION.
[2020-09-18 04:54] LABS: Vancomycin, Trough 20.3 ug/mL (5.0-10.0)
--- NOTE | 2020-09-18 05:34 | NUR ---
SHIFT SUMMARY PT A&O X 3-4; CONFUSED UPON FIRST AWAKENING; DENIES CHEST PAIN; VSS; O2 SATS >93 ON 5L NC; Q2 TURNS PROVIDED; PT REFUSED AT TIMES DUE TO BACK PAIN; ELIZALDE PATENT & DRAINING; NO DISTRESS NOTED; CALL LIGHT IN REACH; BED IN LOWEST POSITION; WILL CONTINUE TO MONITOR CLOSELY UNTIL HAND OFF TO DAY SHIFT RN.
--- NOTE | 2020-09-18 08:00 | NUR ---
ASSUMED CARE: REPORT RECEIVED FROM SAVANNA Ng RN. ASSUMED CARE OF THIS PT AT APPROX 0700. ON ASSESSMENT, THE PT IS RESTING QUIETLY. SHE AWAKENS EASILY TO VERBAL STIMULUS & IS SOMEWHAT GROGGY AT THAT TIME. MENTATION CLEARS THE LONGER SHE IS AWAKE & SHE IS THEN ALERT/ORIENTED TO PERSON, PLACE, SELF & FOLLOWING DIRECTIONS. LS ARE DIM T/O, PT ON 4L NC W/ O2 SATS > 92%. WEARS 2L O2 VIA NC AT HOME. MONITOR SHOWS SR W/ HR 70s, BP STABLE. PT HAS NO GI COMPLAINTS & IS TOLERATING PO INTAKE WELL. ELIZALDE PATENT/ DRAINING YELLOW URINE. SKIN CONDITION OVERALL CDI, SCATTERED BRUISING T/O. WILL CONTINUE TO MONITOR & UPDATE NEEDED.
--- NOTE | 2020-09-18 11:02 | NUR ---
FAMILY UPDATE: CALL FROM JUAN CARLOS, PT's GRANDDAUGHTER. SHE STS THAT SHE CAME TO VISIT THE PT LAST NIGHT, BUT THE PT TOLD THIS RN THIS MORNING THAT HER GRANDDAUGHTER HAD NEVER COME TO SEE HER YESTERDAY. JUAN CARLOS STS THAT THE PT SEEMS TO BE INCREASINGLY FORGETFUL & "NOT HERSELF" THE PAST COUPLE OF DAYS. HOSPITAL VS HOME MEDICATIONS HAVE BEEN REVIEWED & JUAN CARLOS BELIEVES THAT THE FORMULARY SUB OF CELEXA FOR LEXAPRO MAY BE THE ISSUE PT HAS NOT TOLERATED DEVIATION FROM LEXAPRO IN THE PAST. JUAN CARLOS STS THAT EITHER HERSELF OR HER SISTER, KWABENA, WILL BE BRINGING THE PT's HOME LEXAPRO IN SOMETIME TODAY TO RESOLVE THIS ISSUE.
--- NOTE | 2020-09-18 17:27 | NUR ---
TRANSFER TO MEDICAL FLOOR: REPORT HAS BEEN GIVEN TO YOSELIN Carlin RN TO ASSUME CARE. CHART, MEDS & ALL BELONGINGS HAVE BEEN TAKEN UP W/ PT TO ROOM 339. PT TAKEN OUT VIA BED BY RUBY Rodríguez RN & NICKY READ AT APPROX 1725.
--- NOTE | 2020-09-18 18:16 | NUR ---
ASSUMED CARE OF PATIENT UPON HER ARRIVAL FROM ICU AT 1730. TRANSFERRED TO OUR BED WITHOUT INCIDENT. A&O X 3, PLEASANT. PLACED ON TELEMETRY, SR 75. ON O2 @ 6 L/MIN HIGH FLOW CANNULA (USES 2 L/MIN NC AT HOME), O2 SAT 95%. DENIED PAIN. RONNY PICC DRESSING INTACT, SITE WNL. GIVEN DINNER, TOLERATING, DENIES NAUSEA. ELIZALDE DRAINING YELLOW URINE WITH SEDIMENT. CALL LIGHT AND BELONGINGS IN REACH.
--- NOTE | 2020-09-18 23:22 | NUR ---
85 Y/O FEMALE RESTING COMFORTABLY IN BED; CHEERFUL; ALERT AND ORIENTED X 3; BED ALARM APPLIED FOR SAFETY.
--- NOTE | 2020-09-19 03:56 | NUR ---
SHIFT SUMMARY: 85 Y/O FEMALE RESTED COMFORTABLY IN BED; ALERT AND ORIENTED X 2 WITH SUNDOWNERS NOTED THROUGHOUT NIGHT; PT PLEASANT AND COOPERATIVE; DENIES PAIN OR NAUSEA; PT LUNG SOUNDS ARE DIMINISHED THROUGHOUT WHILE WEARING O2 AT 6L/M VIA NASAL CANNULA; DENIES PAIN OR NAUSEA; THIS NURSE REMOVED TEGADERM DRESSING TO OLD RIGHT NECK JUGULAR IV WITH SITE WELL APPROXIMATED AND OPEN TO AIR; PT ABLE TO TURN NECK TO RIGHT WITHOUT ISSUE; BED ALARM APPLIED FOR SAFETY; BED LOW POSITION WITH CALL LIGHT AT SIDE.
[2020-09-19 08:30] LABS: Hematocrit 30.6 % (33.0-51.0); Mean Corpuscular HGB 28.9 pg (26.0-34.0); Mean Corpuscular HGB Conc 32.7 g/dL (31.5-36.5); Mean Corpuscular Volume 88 fL (80-100); Mean Platelet Volume 10.3 fL (9.1-12.4); Platelet Count 221 K/mm3 (150-400); Red Blood Cell Count 3.46 M/mm3 (3.80-5.20); White Blood Cell Count 11.14 K/mm3 (4.00-11.30)
[2020-09-19 08:44] LABS: Bun/Creatinine Ratio 53.6 (12.0-20.0); Calcium, Blood 7.8 mg/dL (8.5-10.1); Creatinine, Blood 1.12 mg/dL (0.40-1.00); Potassium, Blood 3.9 mmol/L (3.5-5.5)
[2020-09-19 09:06] LABS: BAND PERCENT MAN 3 % (0-8); BASOPHILS PERCENT MAN 0 % (0-2); EOSINOPHILS PERCENT MAN 0 % (0-6); LYMPHOCYTES ABSOLUTE MAN 0.66 K/mm3 (0.84-5.20); LYMPHOCYTES PERCENT MAN 6 % (21-46); MONOCYTES ABSOLUTE MAN 0.55 K/mm3 (0.16-1.47); MONOCYTES PERCENT MAN 5 % (4-13); NEUTROPHILS ABSOLUTE MAN 9.91 K/mm3 (1.96-9.15); SEG NEUTROPHILS PERCENT MAN 86 % (41-73); TOTAL CELLS COUNTED 100
--- NOTE | 2020-09-19 15:07 | NUR ---
DAUGHTER HENRI AT BEDSIDE TO VISIT PATIENT. PER DAUGHTER, PATIENT WILL NOT BE WILLING TO GO TO REHAB (NEITHER OR [facility]) D/T PAST ISSUES WITH OTHER FAMILY MEMBERS THAT HAD RECEIVED CARE THERE. EXPLAINED TO HER AND PATIENT THAT PATIENT WILL NOT BE ABLE TO RETURN HOME IN THE NEAR FUTURE SHE WILL NOT BE ABLE TO CARE FOR HERSELF. ASKED ABOUT ASSISTED LIVING AND HENRI DECLINED THAT WELL. REPORTED THESE FINDINGS TO DR. SHAH.
--- NOTE | 2020-09-19 18:16 | NUR ---
SHIFT SUMMARY: ORIENTED X 2, A BIT LETHARGIC TODAY. C/O 10/10 PAIN IN LOW BACK AND L HIP; MEDICATED WITH TYLENOL AND DILAUDID WITH ADEQUATE RELIEF. ALSO HAD NAUSEA AFTER DILAUDID, GAVE PHENERGAN WITH COMPLETE RELIEF. ELIZALDE DRAINING ADEQUATE URINE. NO EVENTS ON TELEM SR 80-100. O2 @ 3 L/MIN NC, SATS 89-93%. GENERALIZED EDEMA. DAUGHTER REQUESTED THAT PT RECEIVE LASIX. ALSO C/O SORE THROAT; SAW A FEW SMALL WHITE PATCHES AT BACK OF THROAT, REPORTED TO DR. SHAH AND RECEIVED ORDER FOR MAGIC MOOUTHWASH AND CEPACOL LOZENGES. TOLERATING ADA DIET. DOES NOT REMEMBER WHEN LAST BM WAS AND HAS NOT HAD ONE SINCE ADMISSION; BOWEL MEDS ORDERED. HAD VISIT FROM DAUGHTER.
--- NOTE | 2020-09-20 07:21 | NUR ---
SHIFT SUMMARY PATIENT SPENT MOST OF THE NIGHT SLEEPING. SHE IS DROWSY BUT WAKES EASILY AND WILL BE ALERT WHEN NEEDED. PATIENT MEDICATED TWICE FOR PAIN PER EMAR. PICC LINE PATENT AND FLUSHED. BED IN LOWEST POSITION WITH WHEELS LOCKED AND ALARM ON. CALL LIGHT WITHIN REACH. REPORT GIVEN TO ONCOMING RN.
--- NOTE | 2020-09-20 14:16 | NUR ---
Patient has given this student You Suárez permission to provide care at this time.
--- NOTE | 2020-09-20 17:22 | NUR ---
PT IS A/OX3, PLEASANT AND COOPERATIVE, THE PT IS BED REST, PT REPOSITIONED T/O THE DAY, THE PT WAS SLEEPY FOR MOST OF THE DAY ON AND OFF, PT WORKED WITH THE OCCUPATIOPNAL THERAPIST, THE PT WAS MEDICATED FOR PAIN X2 SO FAR THIS SHIFT, THE PT CONTINUES TO NEED O2 AT 4L/MIN, PT IS SOB WITH ANY ACTIVITY, DR. RICE CONSULTED ON THE PT TODAY, SPUTUM CX WAS COLLECTED ORDERED, THE PTS FAMILY WAS IN TODAY, PT WAS STARTED ON NYSTATIN FOR THRUSH, CALL LIGHT IN REACH, WILL CONTINUE TO MONITOR AND ASSESS FOR CHANGES
--- NOTE | 2020-09-20 20:24 | NUR ---
ASSUMED CARE. GELACIO IS AOX2, DROWSY. PALE, ILL APPEARANCE. LS ARE VERY DIMINISHED. BLE AND BUE EDEMA NON-PITTING. WEAK. STATES SHE WILL BE NEEDING PAIN MEDS BUT FALLS RIGHT TO SLEEP. BLOOD SUGAR WAS IN 260'S. ADMINISTERED INSULIN. SHE WAS ABLE TO TAKE ALL OF HER MEDS, REPOSITIONED. WILL CONTINUE TO MONITOR. CALL LIGHT IS IN REACH.
--- NOTE | 2020-09-21 05:15 | NUR ---
SHIFT SUMMARY: AOX2, FATIQUED, PALE. TENDS TO BE VERY DROWSY AND TIRED. WOKE UP FOR NIGHT MEDS AND WENT BACK TO SLEEP. SHE HAS SLEPT COMFORTABLY ALL NIGHT LONG. SHE DID REPORT PAIN AND ASKED FOR PAIN MEDICATION BUT WAS ASLEEP BEFORE I COULD RETURN TO THE ROOM. LS DIMISHED, ON 4 LITERS SATS IN THE 90'S. EDEMA TO BUE AND BLE. CATHETER REMAINED PATENT AND DRAINING. NO ACUTE CHANGES TO NOTE THIS SHIFT. CALL LIGHT IS IN REACH.
[2020-09-21 06:40] LABS: BASOPHILS ABSOLUTE AUTO 0.04 K/mm3 (0.00-0.23); BASOPHILS PERCENT AUTO 0 % (0-2); EOSINOPHILS ABSOLUTE AUTO 0.01 K/mm3 (0.00-0.68); EOSINOPHILS PERCENT AUTO 0 % (0-6); Hematocrit 27.9 % (33.0-51.0); Hemoglobin 9.1 g/dL (11.5-16.0); IMMATURE GRAN ABSOLUTE AUTO 0.91 K/mm3 (0.00-0.10); IMMATURE GRAN PERCENT AUTO 5 % (0-1); LYMPHOCYTES ABSOLUTE AUTO 0.85 K/mm3 (0.84-5.20); LYMPHOCYTES PERCENT AUTO 5 % (21-46); MONOCYTES ABSOLUTE AUTO 0.68 K/mm3 (0.16-1.47); MONOCYTES PERCENT AUTO 4 % (4-13); Mean Corpuscular HGB 28.8 pg (26.0-34.0); Mean Corpuscular HGB Conc 32.6 g/dL (31.5-36.5); Mean Corpuscular Volume 88 fL (80-100); Mean Platelet Volume 10.1 fL (9.1-12.4); NEUTROPHILS ABSOLUTE AUTO 16.61 K/mm3 (1.96-9.15); NEUTROPHILS PERCENT AUTO 87 % (41-73); Platelet Count 263 K/mm3 (150-400); RDW Coefficient Variation 15.3 % (11.7-14.2); RDW Standard Deviation 49.8 fL (35.1-46.3); Red Blood Cell Count 3.16 M/mm3 (3.80-5.20)
[2020-09-21 07:00] LABS: C-REACTIVE PROTEIN, EXT RANGE 3.15 mg/dL (0.000-0.300); Magnesium, Blood 2.8 mg/dL (1.6-2.4)
[2020-09-21 07:01] LABS: Albumin, Blood 2.3 g/dL (3.4-5.0); Albumin/Globulin Ratio 0.9 (0.8-1.8); Bilirubin, Total 0.4 mg/dL (0.1-1.0); Bun/Creatinine Ratio 52.3 (12.0-20.0); Calcium, Blood 7.6 mg/dL (8.5-10.1); Creatinine, Blood 1.32 mg/dL (0.40-1.00); Globulin, Blood 2.6 g/dL (2.2-4.0); Potassium, Blood 4.1 mmol/L (3.5-5.5); Total Protein, Blood 4.9 g/dL (6.4-8.2)
--- NOTE | 2020-09-21 18:00 | NUR ---
SHIFT SUMMARY PATIENT ALERT AND ORIENTED X3 THROUGHOUT THIS SHIFT. PATIENT IS PAINFUL IN HER LOWER BACK AND HAS BEEN MEDICATED THROUGHOUT THIS SHIFT FOR THE PAIN. PATIENT LAYING IN BED THROUGHOUT THIS SHIFT. PATIENT UP TO BEDSIDE TO WORK WITH PT AND OT THIS SHIFT. PATIENT HAS DROWSED IN BED WHILE NOT INTERACTING WITH STAFF. PATIENT CURRENTLY SITTING UP IN BED EATING DINNER.
--- NOTE | 2020-09-21 21:52 | NUR ---
GELACIO IS VERY DROWSY BARLEY OPENING HER EYES BUT IS RESPONDING. AUDIABLE WHEEZES AND MOIST SECREATIONS RATTLING IN THROAT. SHE STATES FEELING TIGHT WHEN BREATHING. CALLED RT FOR BREATHING TREATMENT, ENCOURAGED HER TO COUGH AND CLEAR THROAT. STATES IT IS DIFFICULT IT GETS CAUGHT IN THE THROAT. THROAT SORE FROM COUGHING. AFTER BREATHING TREATMENT, STILL SOUNDS THE SAME AND FEELS THE SAME, REPOSITIONED HER UP IN BED AND ENCOURAGED DEEP BREATHING EXERCISES. SECREATIONS ARE IN UPPER LOBES THAT NEED TO BE CLEARED.
--- NOTE | 2020-09-21 22:50 | NUR ---
CORN BREEDER REPORT: 2139: ROUNDED ON PATIENT, "STILL FEEL TIGHT". REPOSITIONED UP IN BED, ENCOURAGED HER COUGH AND CLEAR, RESP SLIGHTLY ELEVATED. SHE WAS UNABLE TO GET SECREATIONS UP. DISCUSSED GETTING FLUTTER VALVE FOR HER TO WORK ON. LEFT ROOM TO GET FLUTTER VALVE. 2149: GOT PART WAY DOWN THE MENDEZ WHEN HEARD THE PATIENT SAY "I CAN'T BREATH" GELACIO WAS TACHYPENIC RUNNING IN THE 30'S, SHALLOW, ACCESSORY MUSCLE USE, GASPING. [employer] BPM DEVELOPER PLACED PULSE OX, SATS 72%. SWITCHED TO OXIMIZER AT 15L, CALLED CORN BREEDER. POSITIONED STRAIGHT UP IN BED. PILLOW BEHIND. LS VERY MOIST CRACKLES. 2205: CORN BREEDER ARRIVED. SATS UP TO 90% BP 98/63, 80 PULSE, RESP 32. TO SOB TO TALK. STILL ON 15 L. RT CONFIRMS MOIST CRACKLES IN THE LUNGS, CALLED FOR BIPAP. ENCOURAGED TO TAKE DEEP BREATHS FROM NOSE. BLOOD SUGAR WAS CHECKED 230. PATIENT DIAPHORTIC. 2207: VS 143/61, PULSE 90, RESP 30. DECREASED TO 13L SATS AT 95%. I&O CHECKED. PATIENT IN NEGATIVE BUT HAS EDEMA BLE AND BUE. CALLED CLEARANCE REP TO HAVE SHAW RESENDEZ TO COME ASSESS. 2210: DECREASED O2 TO 10L SATS UP TO 98% PULSE 72 138/60. PLACED BIPAP RESP 24, PATIENT TOLERATING. REPORT GIVEN TO SHAW RESENDEZ AND NURSING CLEARANCE REP. ASKED FOR TRASFER TO PCU. SHAW RESENDEZ TO PLACE ORDERS. 4: BIPAP ON 50% O2, SATS 98%, STILL TOLERATING WELL. AWAITING ROOM ASSIGNMENT. 0: REPORT CALLED TO [facility] PCU. CHARGE NURSE AND RT READY TO TRANSFER PATIENT. 2244: PATIENT TRANSFERRED TO PCU 13.
--- NOTE | 2020-09-21 23:05 | NUR ---
SPOKE TO GRANDDAUGHTER JUAN CARLOS TO INFORM OF THE TRANSFER AND EVENT THAT OCCURRED. SHE HAD A LONG CONVERSATION INFORMING ME OF THE MANY CHANGES THAT SHE HAS SEEN IN GELACIO. JUAN CARLOS REPORTS THAT GELACIO IS A VERY ACTIVE INDEPENDENT LADY. ALWAYS IN A GOOD MOOD AND AOX3. SHE STATES THE STATE HER GRANDMOTHER IS IN IS NOT HER NORMAL AND SHE IS VERY CONCERNED. SHE VERBALIZED HER FRUSTRATION ON HER GRANDMOTHER GETTING PAIN MEDICATION OR ANY MEDICATION THAT CAUSES SEDATION. STATES HER GRANDMOTHER IS VERY SENSITIVE TO THEM, SUCH A BENADRYL KNOCKS HER OUT FOR A FULL DAY. SHE DOES NOT TAKE PAIN MEDS AT HOME, THEREFORE JUAN CARLOS BELEIVES THIS IS THE CAUSE HER TO BEING LETHARGIC AT TIMES. SHE REQUEST THAT SHE NO LONGER GET MUSCLE RELAXORS OR PAIN MEDS THAT WAY HER GRANDMOTHER WILL BE ABLE TO WORK WITH PT/OT. WILL INFORM PCU NURSE.
--- NOTE | 2020-09-22 02:20 | NUR ---
RECIEVED REPORT FROM LESA PHILIP. PATIENT CAME TO PCU AT 2240 AFTER BULLET CASTING OPERATOR CALLED AND PATIENT PLACED ON BIPAP AFTER 02 SATS DROPPED INTO THE 70s. PATIENT SLID TO BED UPON ARRIVAL. VSS, PATIENT TOLERATING BIPAP WELL AND 02 SATS >95%. PATIENT IS ALERT AND ORIENTED. LESA PHILIP NOTIFIED FAMILY OF PATIENTS TRANSFER. I AGREE WITH LESA'S ASSESSMENT AND HAVE REVIEWED HER NOTES. PATIENTS HEELS BEING FLOATED ON WITH A PILLOW AND PATIENT TURNED Q2 HOURS. PATIENT IS CURRENTLY SLEEPING. CALL LIGHT IN REACH. BED IN LOWEST POSITION.
[2020-09-22 04:36] LABS: BASOPHILS ABSOLUTE AUTO 0.02 K/mm3 (0.00-0.23); BASOPHILS PERCENT AUTO 0 % (0-2); EOSINOPHILS PERCENT AUTO 0 % (0-6); Hemoglobin 8.7 g/dL (11.5-16.0); IMMATURE GRAN ABSOLUTE AUTO 0.69 K/mm3 (0.00-0.10); IMMATURE GRAN PERCENT AUTO 4 % (0-1); LYMPHOCYTES ABSOLUTE AUTO 0.63 K/mm3 (0.84-5.20); LYMPHOCYTES PERCENT AUTO 4 % (21-46); MONOCYTES ABSOLUTE AUTO 0.41 K/mm3 (0.16-1.47); MONOCYTES PERCENT AUTO 3 % (4-13); Mean Corpuscular HGB Conc 32.2 g/dL (31.5-36.5); Mean Corpuscular Volume 90 fL (80-100); NEUTROPHILS ABSOLUTE AUTO 14.96 K/mm3 (1.96-9.15); NEUTROPHILS PERCENT AUTO 90 % (41-73); Platelet Count 264 K/mm3 (150-400); RDW Coefficient Variation 15.8 % (11.7-14.2); White Blood Cell Count 16.71 K/mm3 (4.00-11.30)
--- NOTE | 2020-09-22 04:56 | NUR ---
VSS, NO ACUTE CHANGES. PATIENT SLEEPING. CHANGED Q2 HOURS, TWO PERSON MAX ASSIST. TOLERATING BIPAP WELL. CALL LIGHT IN REACH, BED ALARM ON.
[2020-09-22 05:18] LABS: Albumin, Blood 2.3 g/dL (3.4-5.0); Albumin/Globulin Ratio 0.9 (0.8-1.8); Bilirubin, Total 0.4 mg/dL (0.1-1.0); Bun/Creatinine Ratio 49.3 (12.0-20.0); Calcium, Blood 7.6 mg/dL (8.5-10.1); Creatinine, Blood 1.44 mg/dL (0.40-1.00); Globulin, Blood 2.6 g/dL (2.2-4.0); Potassium, Blood 4.7 mmol/L (3.5-5.5); Thyroid Stimulating Hormone 0.025 uIU/mL (0.360-4.800); Total Protein, Blood 4.9 g/dL (6.4-8.2)
[2020-09-22 06:11] LABS: Percent Saturation 18.8 % (15.0-50.0)
--- NOTE | 2020-09-22 10:09 | NUR ---
ASSUMED CARE FROM NOC RN, MORNING UPDATE. PT WAS RESTING IN BED DURING REPORT. PT WAS REPORTED NEEDED 7.5L VIA NC WHICH WAS TITRATED DOWN FROM HIGH FLOW VIA BIPAP. DURING MORNING ASSESSMENT PT HAD SATURATIONS AT 98-99% ON THE 7.5L; PT WAS TITRATED DOWN TO 5L VIA NC. PT HAS MOIST, DIM CRACKLES IN THE LUNGS. THIS MORNING I WAS PLACING THE PT'S LIDOCAINE PATCH ON HER BACK THE PT WAS ABLE TO TURN AND HOLD HERSELF ON HER LEFT SIDE BUT SHE HAD DISPLACED HER IV THAT WAS IN HER HAND; CHARLIE. TFS WAS ABLE TO START A NEW IV IN THE RIGHT AC. PT IS RESTING IN BED AT THIS TIME
--- NOTE | 2020-09-22 11:10 | NUR ---
OXYGEN NEEDS PT SAT HAD DROPPED TO 88% AGAIN ON 5L O2. O2 WAS INCREASED TO 7.5L VIA NC
--- NOTE | 2020-09-22 16:22 | NUR ---
Call from Timi in [employer] for clarification on what type of study the doctor wants. Called Dr. Briones and she would like the white cell study. I communicated this to Nilsa Vance, [facility] [facility] who said that it would be done tomorrow morning, and that there is no patient prep needed.
--- NOTE | 2020-09-22 18:02 | NUR ---
SHIFT SUMMARY PT WAS ALERT AND ORIENTED TODAY. PT WAS ABLE TO HAVE VISITORS AND WORK WITH PT AND OT TODAY. PT WAS ABLE TO STAND AT THE BEDSIDE WITH OT/PT BUT NEEDED BIPAP FOR RECOVERY. PT DOES REFUSE BIPAP UNLESS WORKING WITH PT/OT OTHERWISE PT IS ON OXYGEN VIA NC 11L. PT WAS COOPERATIVE WITH MEDICATIONS TODAY. PT REPORTED SOME ABD DISCOMFORT AND THAT SHE HAD NOT HAD A BM SINCE SHE ARRIVED. A FLEET ENEMA WAS ORDERED AND SUCCESSFUL. PT WAS ABLE TO USE THE BED CASTELAN WITH 2 PERSON ASSIST. PT IS IN BED RESTING AT THIS TIME
[2020-09-23 04:52] LABS: BASOPHILS ABSOLUTE AUTO 0.05 K/mm3 (0.00-0.23); BASOPHILS PERCENT AUTO 0 % (0-2); EOSINOPHILS ABSOLUTE AUTO 0.09 K/mm3 (0.00-0.68); EOSINOPHILS PERCENT AUTO 0 % (0-6); Hematocrit 29.4 % (33.0-51.0); Hemoglobin 9.4 g/dL (11.5-16.0); IMMATURE GRAN ABSOLUTE AUTO 0.76 K/mm3 (0.00-0.10); IMMATURE GRAN PERCENT AUTO 4 % (0-1); LYMPHOCYTES PERCENT AUTO 6 % (21-46); MONOCYTES PERCENT AUTO 3 % (4-13); Mean Corpuscular HGB 28.8 pg (26.0-34.0); Mean Corpuscular Volume 90 fL (80-100); Mean Platelet Volume 9.8 fL (9.1-12.4); NEUTROPHILS ABSOLUTE AUTO 18.12 K/mm3 (1.96-9.15); NEUTROPHILS PERCENT AUTO 87 % (41-73); Platelet Count 331 K/mm3 (150-400); RDW Coefficient Variation 15.8 % (11.7-14.2); RDW Standard Deviation 51.8 fL (35.1-46.3); Red Blood Cell Count 3.26 M/mm3 (3.80-5.20); White Blood Cell Count 20.82 K/mm3 (4.00-11.30)
--- NOTE | 2020-09-23 06:30 | NUR ---
PT ARRIVES EMERGENTLY FROM PCU 13 AT 0538. PT PRESENTS ON BIPAP. SLIDE TRANSFERRED FROM BED TO ICU BED. PT VERY ANXIOUS AT TIME OF ARRIVAL. HAVING DIFFICULTIES TOLERATING BIPAP. OXYGEN SATURATIONS > 90 PERCENT. RESPIRATORY RATE 30'S-40'S. HAVE BEEN ABLE TO TITRATE FIO2 DOWN TO 70 PERCENT. PRIOR TO PT BEING TRANSFERRED FROM PCU CALL MADE TO DR AVELAR - TYREE. CONSULT ORDER WAS RECEIVED. CALL MADE TO DR CREWS TO INFORM HIM OF CONSULT AND POSSIBLE NEED FOR INTUBATION. AFTER PT ARRIVES NEED FOR RAPID INTUBATION WAS NOT NEEDED. PT NEEDS TO BE CALMED CONCERNING WEARING BIPAP MASK. SHE DID STATE THAT IF SHE NEEDED TO BE INTUBATED FOR A SHORT WHILE THAT SHE WOULD BE IN FAVOR. WILL CONTINUE TO MONITOR PT, AND WILL REPORT OFF TO ONCOMING RN.
--- NOTE | 2020-09-23 07:15 | NUR ---
Assumed care of pt at 0700. Bedside report received from Ankur PHILIP. Pt lethargic. A&O x 4. Answers questions. Follows commands. Verbalizes needs. Quickly falls back asleep, however. On BiPAP 14/8 and 70% FiO2. SpO2 90% or greater. Lungs coarse and crackly t/o. Weak, moist cough. Incentive spirometer and flutter valve at bedside. Rosa SN to assist with care of pt this shift.
--- NOTE | 2020-09-23 07:18 | NUR ---
PATIENT ALERT AND ORIENTED THROUGHOUT SHIFT. TWO PERSON MAX ASSIST TO TURN Q2 HOURS, MEPALEX ON COCCYX. ELIZALDE CATHETER DRAINING. POWERGLIDE PLACED IN RIGHT UPPER ARM. 02 SATS WERE 88-93% ON 9L VIA NC, PATIENT STARTED COMPLAINING OF SOB, AND WAS COUGHING UP RED SPUTUM 02 SATS DROPPED TO THE LOWER 80s AND PATIENT UNABLE TO RECOVER ON 15L VIA NC. RT CALLED, PATIENT REFUSING BIPAP AND AGREED TO AIRVO, RT PLACED PATIENT ON AIRVO AT 60L AND FIO2 60%. DR CALLED AND CHEST X-RAY ORDERED AND VERBAL ORDER TO HOLD BLOOD THINNERS. SUCTION USED TO HELP PATIENT CLEAR BLOODY SPUTUM. CHARGE DISCUSSED WITH PATIENT PLAN OF CARE AND PATIENT STATED SHE WANTED TO REMAIN A FULL CODE. RIM TURNING MACHINE OPERATOR TALKED WITH AND KIERAN GIVEN, SEE EMAR. AT APPROX. 0500 PATIENT CALLED WITH COMPLAINTS OF SOB AND STATED SHE FELT LIKE SHE WAS "WORKING TOO HARD TO BREATHE AND MAY PASS OUT" WHILE ON THE AIRVO. PATIENT AGREED TO BIPAP, HAVE TO REMOVE MASK TO SUCTION PATIENT DUE TO PATIENT COUGHING UP BLOODY SPUTUM, 150 ML SUCTIONED TOTAL. BIPAP 14/8 FIO2 100% 02 SATS 88-93%. ORDERS TO MOVE PATIENT TO ICU. BEDSIDE REPORT GIVEN TO BETHANY PHILIP.
--- NOTE | 2020-09-23 08:13 | NUR ---
Pt agreed for me to provide care 09/23/20
--- NOTE | 2020-09-23 11:00 | NUR ---
Conservative amount of PO intake, including meds due to respiratory effort. Only critical meds given. All other meds held. This RN clarified with Dr Monteiro if anticoagulants are okay, considering pt has had hemoptysis. Provider states anticoagulants are acceptable.
--- NOTE | 2020-09-23 14:00 | NUR ---
Plan to have family meeting to establish goals of care considering patient is failing all treatment for MRSA bacteremia and respiratory status is declining. Plan to clarify if pt still wants full code/full treatment.
--- NOTE | 2020-09-23 16:03 | NUR ---
PT GAVE PERMISSION TO PROVIDE CARE ON 09/23/2020.
--- NOTE | 2020-09-23 18:38 | NUR ---
Spiritual care note: Provided prayer for a clear path at dtr and grand-dtr request at bedside. Enriqueta appears very weak and tired. She awakens briefly and appears lucid. I was present when physicians spoke to family about plan moving forward. Grand-dtr became so distraught she had trouble processing what the physicians were saying. After physicians left room, Dtr, Sarahi, asked me to return. The three of us laid out the options to Enriqueta: Continue to fight with all medical interventions available, or shift focus to comfort. Enriqueta stated "There's always hope." When asked about mechanical ventilation, Enriqueta said she wanted it if it became neccessary. She was very clear that she does not want to give up and still believes she can get better. "You have to keep fighting, right?" She asked. Family tearful, anxious, clearly overhwlmed. They asked that physicians look into transferring Enriqueta to [facility]. RN informed. Prayer and emotional support given. Vacuum System Tester services will remain available.
--- NOTE | 2020-09-23 18:55 | NUR ---
At this time, pt is sleeping in bed, wearing AirVO with 60 LPM and 93% FiO2. SpO2 90% or greater. Pt awakens to gentle verbal stimulus. Letargic but oriented to self, place, and year. Pt visited with family for majority of visiting hours and plan is to continue with full treatment including intubation if necessary. Will proceed with WBC scan tomorrow. Dr Briones, Cayetano, and Mane conferenced with patient and family today. IV antibiotics changed by Dr Gilliam. SR per monitor. Will continue to closely monitor until care handoff and bedside report with oncoming RN.
--- NOTE | 2020-09-23 20:00 | NUR ---
ASSUMED CARE OF PT AT 1915. REPORT RECEIVED. PT PRESENTS IN BED. ALERT AND ORIENTED. ACKNOWLEDGES THAT SHE IS FEELING SOME BETTER. NO HEMOPTYSIS NOTED. PT ABLE TO HAVE FULL CONVERSATION. AIRVO ON AT 60 L/M FLOW WITH FIO2 95 PERCENT. DID DECREASE FLOW TO 90 PERCENT. WILL REVIEW CHART AND PLAN OF CARE FOR THIS PT.
--- NOTE | 2020-09-23 23:00 | NUR ---
DAUGHTER CALLS THIS EVENING FOR UPDATE. THIS PROVIDED. ALLOWED HER TO ASK QUESTIONS. TEACHING DONE ON TREATMENT PLAN WHICH INCLUDES WHITE CELL STUDY PROPOSED FOR MORNING.
--- NOTE | 2020-09-24 02:00 | NUR ---
HAVE DECREASED FIO2 DOWN TO 80 PERCENT. HAVE CONTINUED WITH Q 2 HOUR TURNS IN BED. PT HAS TOLERATED THIS FAIR TO WELL. OXYGEN SATURATIONS HAVE REMAINED > 90 PERCENT. PT INTERACTIVE WITH POSITION CHANGES. ALERT AND ORIENTED. PLEASANT AND COOPERATIVE WITH CARE AND ASSESSMENT. DENIES COMPLAINTS.
[2020-09-24 03:35] LABS: BASOPHILS ABSOLUTE AUTO 0.02 K/mm3 (0.00-0.23); BASOPHILS PERCENT AUTO 0 % (0-2); EOSINOPHILS PERCENT AUTO 0 % (0-6); Hematocrit 23.6 % (33.0-51.0); Hemoglobin 7.6 g/dL (11.5-16.0); IMMATURE GRAN ABSOLUTE AUTO 0.27 K/mm3 (0.00-0.10); IMMATURE GRAN PERCENT AUTO 2 % (0-1); LYMPHOCYTES ABSOLUTE AUTO 0.32 K/mm3 (0.84-5.20); LYMPHOCYTES PERCENT AUTO 2 % (21-46); MONOCYTES PERCENT AUTO 1 % (4-13); Mean Corpuscular HGB 29.1 pg (26.0-34.0); Mean Corpuscular HGB Conc 32.2 g/dL (31.5-36.5); Mean Corpuscular Volume 90 fL (80-100); Mean Platelet Volume 10.2 fL (9.1-12.4); NEUTROPHILS ABSOLUTE AUTO 17.61 K/mm3 (1.96-9.15); NEUTROPHILS PERCENT AUTO 96 % (41-73); Platelet Count 273 K/mm3 (150-400); RDW Coefficient Variation 15.9 % (11.7-14.2); RDW Standard Deviation 52.3 fL (35.1-46.3); Red Blood Cell Count 2.61 M/mm3 (3.80-5.20); White Blood Cell Count 18.42 K/mm3 (4.00-11.30)
[2020-09-24 03:52] LABS: Albumin, Blood 2.1 g/dL (3.4-5.0); Albumin/Globulin Ratio 0.7 (0.8-1.8); Bilirubin, Total 0.5 mg/dL (0.1-1.0); Bun/Creatinine Ratio 53.4 (12.0-20.0); Calcium, Blood 7.3 mg/dL (8.5-10.1); Creatinine, Blood 1.48 mg/dL (0.40-1.00); Globulin, Blood 2.9 g/dL (2.2-4.0); Potassium, Blood 5.2 mmol/L (3.5-5.5)
--- NOTE | 2020-09-24 06:30 | NUR ---
PT TEACHING DONE THIS MORNING ON PROPOSED WHITE BLOOD CELL STUDY. PT VERBALIZES UNDERSTANDING. TRIALED PT IN FLAT POSITION TO ASSESS IF SHE COULD TOLERATE THIS FOR APPROX ONE HOUR SUPINE COMMITMENT FOR TEST. SHE DID VERY WELL DURING THIS TIME. CALL RECEIVED FROM PT'S DAUGHTER THIS AM FOR UPDATE. QUESTIONS ANSWERED. DISCUSSED DECREASE IN FIO2 NEED, AND HOW PT DID FOR THE NIGHT. WILL CONTINEU TO MONITOR PT, AND WILL REPORT OFF TO ONCOMING RN.
--- NOTE | 2020-09-24 08:10 | NUR ---
INITIAL ASSESSMENT PATIENT ALERT AND ORIENTED X 4, AFEBRILE. PATIENT WEAK BUT ABLE TO ASSIST NURSE WITH REPOSITIONING. PATIENT DENIES PAIN OR DISCOMFORT AT THIS TIME. LUNGS COARSE THROUGHOUT. WHEEZE NOTED TO RUL. PATIENT HAS MOIST COUGH THAT IS PRODUCING MODERATE AMOUNT OF CLEAR/ BLOODY SPUTUM THAT IS RANGING BETWEEN THICK AND THIN. PATIENT SOB WITH EXERTION. PATIENT ON AIRVO 60 L AND 82% FIO2 TO KEEP SATS 90% AND GREATER. PATIENT IN SR WITH BBB AND OCCASIONAL PVCS. HR 60S TO 70S. SBP 130S TO 140S. PATIENT DOES HAVE SOME EDEMA. GI APPEARS WNL. ELIZALDE IN PLACE DRAINING DARK TEA COLORED URINE WITH SEDIMENT NOTED. BRUISES SCATTERED T/O. SKIN FRAGILE AND PALE. REDDENED COCCYX AND HEELS NOTED. SCAB NOTED TO LOWER LIP. IVS FLUSHED AND SALINE LOCKED. BED LOW, CALL LIGHT IN REACH. WILL CONTINUE TO MONITOR PATIENT FREQUENTLY THROUGHOUT SHIFT.
--- NOTE | 2020-09-24 10:00 | NUR ---
DR. NUNEZ UPDATED ON PATIENT STATUS. INFORMED THAT AM HEMOGLOBIN DOWN TO 7.6 FROM 9.4. INFORMED THAT PATIENT IS COUGHING UP BLOODY SPUTUM. NO ORDERS OBTAINED AT THIS TIME.
[2020-09-24 10:46] LABS: Hematocrit 26.8 % (33.0-51.0); Hemoglobin 8.6 g/dL (11.5-16.0)
--- NOTE | 2020-09-24 12:30 | NUR ---
PATIENT AFEBRILE. PRN PAIN MEDICATIONS GIVEN FOR COMPLAINTS OF LOW BACK AND LEG PAIN. PATIENT REPORTS PAIN IS MANAGEABLE AT THIS TIME. DR. NUNEZ IN ROOM TO CHECK BACK UP ON PATIENT. HR IN THE 70S. SBP 130S TO 150S. AIRVO AT 60 L AND 85% FIO2; DOWN FROM 90% FIO2. BLOOD SUGAR OF 281; COVERAGE GIVEN. NO OTHER ACUTE CHANGES TO NOTE ON AT THIS TIME. WILL CONTINUE TO MONITOR.
--- NOTE | 2020-09-24 15:34 | NUR ---
Echocardiogram completed.
--- NOTE | 2020-09-24 16:10 | NUR ---
PATIENT AFEBRILE. PATIENT REMAINS SATTING 90% AND GREATER ON AIRVO AT 60 L AND 85% FIO2. HR 60S TO 70S. SBP IN THE 130S. BLOOD SUGAR OF 229; COVERAGE GIVEN. PATIENT REFUSED BED BATH. PATIENT'S GRAND-DAUGHTER, TIFFANIE, HERE TO VISIT HER. NO OTHER ACUTE CHANGES TO NOTE ON AT THIS TIME. WILL CONTINUE TO MONITOR.
--- NOTE | 2020-09-24 19:08 | NUR ---
SHIFT SUMMARY PATIENT REMAINED ALERT AND ORIENTED X 4, AFEBRILE. PATIENT GIVEN PRN TYLENOL AND IV MORPHINE FOR COMPLAINTS OF LEG AND LOWER BACK PAIN; PATIENT REPORTED RELIEF WITH. LUNGS REMAINED COARSE THROUGHOUT. PATIENT REMAINED ON AIRVO AT 60 L AND RANGED FROM 70 TO 90% FIO2. PATIENT CONTINUED TO COUGH UP MIXED CLEAR AND BLOODY SPUTUM. PATIENT VERY SOB WITH EXERTION. PATIENT REMAINED IN SB TO SR, HR 50S TO 80S. SBP 1-TEENS TO 170S. PATIENT HAD MEDIUM, BROWN, PASTY STOOL THIS SHIFT. ELIZALDE DRAINED 525 MLS OF DARK TEA COLORED URINE WITH SEDIMENT. NO CHANGE TO SKIN; PATIENT REPOSITIONED THROUGHOUT SHIFT. PATIENT REFUSED BEDBATH THIS SHIFT. BLOOD SUGARS 177 TO 281; COVERAGE GIVEN AT EACH CHECK. BED LOW, CALL LIGHT IN REACH. REPORT HAS BEEN GIVEN TO ASSUMING PRINTED CIRCUIT BOARD PCB DRAFTSMAN RN.
[2020-09-24 22:07] LABS: Hematocrit 23.3 % (33.0-51.0); Hemoglobin 7.5 g/dL (11.5-16.0)
--- NOTE | 2020-09-24 22:21 | NUR ---
ASSUMED CARE: REPORT RECEIVED FROM TAMERA GENAO. PT A&O. VSS. SPO2 >86%. SHE IS ABLE TO HOLD CONVERSATION WELL. LUNG SOUNDS ARE COARSE T/O. SHE C/O A "RATTLE" IN HER CHEST THAT SHE CANT COUGH OUT. ON AIRVO 60L/70% FIO2. TARGET SPO2 >86%. ELIZALDE IN PLACE DRAINING DARK SHILPA URINE. CALL PLACED EARLIER TO DR NUNEZ REGARDING PT'S LOVENOX ORDER. PT IS COUGHING UP BLOOD. PAST HGB HAVE BEEN 7.6, 8.5. ORDERS RECEIVED TO HOLD LOVENOX FOR NOW AND REPEAT H&H, PTT, INR, TYPE AND SCREEN. HGB RESULTS 7.5. ORDERS RECEIVED FROM DR NUNEZ TO CONTINUE WITH CURRENT ORDERS AND RECHECK HGB IN AM. IF AM HGB IS <7 TRANSFUSE 1 UNIT PRBCS. WILL CONTINUE TO MONITOR
[2020-09-24 22:28] LABS: International Normalized Ratio 1.13
[2020-09-25 03:56] LABS: BASOPHILS ABSOLUTE AUTO 0.06 K/mm3 (0.00-0.23); BASOPHILS PERCENT AUTO 0 % (0-2); EOSINOPHILS PERCENT AUTO 0 % (0-6); Hematocrit 24.2 % (33.0-51.0); IMMATURE GRAN ABSOLUTE AUTO 0.59 K/mm3 (0.00-0.10); IMMATURE GRAN PERCENT AUTO 2 % (0-1); LYMPHOCYTES ABSOLUTE AUTO 0.71 K/mm3 (0.84-5.20); LYMPHOCYTES PERCENT AUTO 3 % (21-46); MONOCYTES ABSOLUTE AUTO 0.67 K/mm3 (0.16-1.47); MONOCYTES PERCENT AUTO 2 % (4-13); Mean Corpuscular HGB 29.7 pg (26.0-34.0); Mean Corpuscular HGB Conc 33.1 g/dL (31.5-36.5); Mean Corpuscular Volume 90 fL (80-100); Mean Platelet Volume 10.3 fL (9.1-12.4); NEUTROPHILS ABSOLUTE AUTO 25.35 K/mm3 (1.96-9.15); NEUTROPHILS PERCENT AUTO 93 % (41-73); Platelet Count 323 K/mm3 (150-400); RDW Coefficient Variation 16.3 % (11.7-14.2); RDW Standard Deviation 52.8 fL (35.1-46.3); Red Blood Cell Count 2.69 M/mm3 (3.80-5.20); White Blood Cell Count 27.38 K/mm3 (4.00-11.30)
[2020-09-25 04:13] LABS: Bun/Creatinine Ratio 50.3 (12.0-20.0); Calcium, Blood 7.5 mg/dL (8.5-10.1); Creatinine, Blood 1.97 mg/dL (0.40-1.00); Potassium, Blood 5.1 mmol/L (3.5-5.5)
--- NOTE | 2020-09-25 06:01 | NUR ---
SHIFT SUMMARY: PT SLEPT MAJORITY OF NIGHT. REPOSITIONED Q2. HGB STABLE AT 8.0. NO TRANSFUSION NEEDED AT THIS TIME. ELIZALDE CLAMPED TO COLLECT UA. UNSUCCESSFUL THUS FAR. VSS. SPO2 STABLE. PT STILL COUGHING UP BLOOD. WILL PASS REPORT TO ONCOMING RN
[2020-09-25 08:17] LABS: Source, Urine Catheter
[2020-09-25 08:23] LABS: Appearance, Urine Cloudy (Clear); Bilirubin, Urine Neg (Neg); Blood, Urine 5+ (Neg); Color, Urine Yellow (P-Yellow); Glucose Qualitative, Urine Neg (Neg); Ketones, Urine Neg (Neg); Leukocyte Esterase, Urine 3+ (Neg); Nitrite, Urine Neg (Neg); Protein, Urine 3+ (Neg); Specific Gravity, Urine 1.015 (1.003-1.022); Urobilinogen, Urine NORM (Normal)
--- NOTE | 2020-09-25 08:30 | NUR ---
INITIAL ASSESSMENT PATIENT ALERT AND ORIENTED X 4, AFEBRILE. PATIENT GIVEN PRN PAIN MEDICATIONS THIS AM FOR COMPLAINTS OF PAIN IN LOWER BACK, LEGS AND BACK OF THE R UA. PATIENT REPORTED PAIN RELIEF WITH PRN MEDICATIONS. PATIENT WEAK BUT ABLE TO ASSIST WITH REPOSITIONING AND ADLS IN BED. LUNG SOUNDS COARSE THROUGHOUT. AIRVO AT 60 L AND 70% FIO2. PATIENT HAS MOIST, LOOSE COUGH. PATIENT STATES SHE CONTINUES TO OCCASIONALLY COUGH UP CLEAR SPUTUM WITH BLOOD IN IT. PATIENT SOB WITH EXERTION. INCENTIVE SPIROMETER AT BEDSIDE. PATIENT IN SR WITH BBB AND OCCASIONAL PVCS. HR 70S TO 80S. SBP 180S TO 190S. GI APPEARS WNL. ELIZALDE IN PLACE DRAINING DARK TEA COLORED URINE WITH SEDIMENT NOTED. URINE CULTURE SENT TO LAB. PATIENT RECEIVING SCHEDULED LASIX. BRUISES SCATTERED THROUGHOUT. COCCYX AND HEELS REDDENED. SCAB NOTED TO LOWER LIP. R UA POWERGLIDE REMOVED FOR CONTINUED COMPLAINTS OF PAIN WHEN FLUSHING. PERIPHERAL IV FLUSHED AND SALINE LOCKED. BLOOD SUGAR 164. BED LOW, CALL LIGHT IN REACH. WILL CONTINUE TO MONITOR PATIENT FREQUENTLY THROUGHOUT SHIFT.
[2020-09-25 08:42] LABS: Red Blood Cells, Urine TNTC /hpf (0-2)
[2020-09-25 08:43] LABS: Bacteria Many /hpf; Squamous Epithelial Cells Few /hpf (Few)
--- NOTE | 2020-09-25 10:00 | NUR ---
DR. NUNEZ UPDATED ON PATIENT STATUS. INFORMED THAT PATIENT ON 70% FIO2 ON AIRVO THIS AM. INFORMED THAT PATIENT HAD BEEN COMPLAINING OF PAIN IN THE BACK OF R UA. INFORMED THAT PATIENT ALSO COMPLAINED IN THIS AREA WHEN R UA PG FLUSHED. IV FLUSHED WITHOUT DIFFICULTY; BLOOD DID NOT DRAW BACK. ARM FELT SOFT WITH NO VISIBLE SIGNS OF INFILTATION BUT IV REMOVED PER CLINICAL JUDGEMENT AND PATIENT COMPLAINT OF TENDERNESS. INFORMED THAT BLOOD CULTURE CAME BACK POSITIVE FOR GRAM + COCCI IN BLOOD THIS AM. INFORMED THAT WBCS INCREASED TO 27.38 FROM 18.42 THIS AM AND THAT KIDNEY LABS ARE ALSO INCREASING. INFORMED THAT PATIENT'S GRAND-DAUGHTER CALLED THIS AM AND WOULD LIKE EITHER HER MOTHER OR HER TO HAVE AN UPDATE BY HIM TODAY.
--- NOTE | 2020-09-25 12:30 | NUR ---
PATIENT AFEBRILE. BREATHING LABORED AND INCREASED WOB NOTED. HR 60S TO 70S. SBP 140S TO 160S. BLOOD SUGAR OF 203; COVERAGE GIVEN.
--- NOTE | 2020-09-25 13:30 | NUR ---
DR. NUNEZ DECIDED TO INTUBATE PATIENT FOR INCREASED WOB. DR. NUNEZ SPOKE WITH PATIENT'S GRAND-DAUGHTER AND ALLOWED GRAND-DAUGHTER TO SPEAK WITH PATIENT TO CONFIRM THESE WERE HER WISHES. 1254: PROPOFOL 60 MG GIVEN. 1255: VERSED 2 MG GIVEN. 1258: VERSED 2 MG AND PROPOFOL 40 MG GIVEN. 1300: PROPOFOL 40 MG GIVEN. PATIENT INTUBATED AT 1301.
[2020-09-25 14:24] LABS: Hematocrit 21.5 % (33.0-51.0); Hemoglobin 6.8 g/dL (11.5-16.0)
--- NOTE | 2020-09-25 16:10 | NUR ---
PATIENT AFEBRILE. PATIENT INTUBATED AND SEDATED. PROPOFOL AT 35 MCG/ KG/ MINUTE. PATIENT ON AC 14, TV 330, PEEP 5 AND 80% FIO2. LUNGS CLEAR IN UPPER LOBES AND DIMINISHED IN LOWER LOBES. PATIENT IS NO LONGER WORKING HARD TO BREATH. LARGE AMOUNT OF THICK, BLOODY SECRETIONS WERE SUCTIONED FROM ETT WHEN PATIENT FIRST INTUBATED. HR IN THE 60S. SBP 120S TO 140S. OG PLACED AFTER INTUBATION; OG TO LIS. BLOOD SUGAR OF 119; NO COVERAGE INDICATED.
--- NOTE | 2020-09-25 18:00 | NUR ---
REMAINING PO MEDICATIONS ON EMAR ARE OKAY TO CRUSH AND GIVE DOWN OG PER PHARMACY.
--- NOTE | 2020-09-25 18:42 | NUR ---
SHIFT SUMMARY PATIENT ALERT AND ORIENTED THROUGHOUT SHIFT. PATIENT INTUBATED AND PLACED ON SEDATION AROUND 1300 FOR INCREASED WORK OF BREATHING. PATIENT HAS REMAINED RESPONSIVE TO VERBAL/ PAINFUL STIMULI ON SEDATION. CURRENTLY PRECEDEX IS AT 0.4 MCG/ KG/ HOUR AND PROPOFOL IS AT 15 MCG/ KG/ MINUTE. PATIENT HAS REMAINED AFEBRILE. PATIENT GIVEN PRN PAIN MEDICATIONS FOR COMPLAINT OF PAIN IN LOWER BACK, LEGS AND BACK OF R UA AND ALSO A SEDATION ADJUNCT. PATIENT HAD MOIST, LOOSE COUGH THIS AM AND LUNGS COARSE TO AUSCULTATION. AFTER PATIENT INTUBATED, LARGE AMOUNT OF THICK, BLOODY SPUTUM SUCTIONED FROM ETT; LUNG SOUNDS THEN CLEAR IN UPPER LOBES AND DIMINISHED IN LOWER LOBES. PATIENT SOB WITH EXERTION AND ON AIRVO AT 60 L AND 65% PRIOR TO INTUBATION. PATIENT SB TO SR WITH OCCASIONAL PVCS. HR 50S TO 80S. SBP RANGED FROM 70S TO 190S. PATIENT HYPERTENSIVE WITH PAIN OR WHEN MOVING AROUND IN BED. PATIENT HYPOTENSIVE WHEN SEDATION ADDED. LOW DOSE LEVOPHED OKAY TO GIVE IN PERIPHERAL IV PER DR. NUNEZ TO KEEP MAPS 60 AND GREATER. OG TO LIS. NO BM THIS SHIFT. ELIZALDE DRAINED 895 MLS OF DARK TEA COLORED URINE WITH SEDIMENT NOTED. UA SENT THIS SHIFT. SCHEDULED LASIX GIVEN THIS SHIFT. PATIENT HAD COMPLETE BED BATH THIS SHIFT. 1 UNIT PRBCS JUST FINISHED INFUSING FOR HEMOGLOBIN OF 6.8 TODAY. ANOTHER H AND H TO BE COLLECTED AT 1999. BLOOD SUGARS RANGED FROM 119 TO 203. PATIENT APPEARS CONTENT AT THIS TIME. BED LOW, CALL LIGHT IN REACH. REPORT WILL BE GIVEN TO ASSUMING CUSTOMER CARE PROFESSIONAL RN SHORTLY.
--- NOTE | 2020-09-25 19:40 | NUR ---
REPORT RECEIVED FROM TAMERA GENAO. PT IS CURRENTLY INTUBATED AND SEDATED. VENT SETTINGS ARE AC 14/330/5/55%. PT TOLERATING WELL. SB AT TIMES. HYPOTENSIVE AT TIMES WELL. TURNED PROPOFOL DOWN TO 10MCG FROM 15. PRECEDEX AT 0.4. WILL CONTINUE TO MONITOR HOW WELL PT TOLERATES VENT AT LOWER SEDATION. PG TO RONNY. 1UPRBC FINISHED AT SHIFT CHANGE. VERIFIED WITH PHARMACIST ALL PO MEDS CAN BE CRUSHED AND GIVEN PT. WILL CONTINUE TO MONITOR
[2020-09-25 20:35] LABS: Hematocrit 27.3 % (33.0-51.0); Hemoglobin 8.9 g/dL (11.5-16.0)
[2020-09-26 05:49] LABS: BASOPHILS ABSOLUTE AUTO 0.02 K/mm3 (0.00-0.23); BASOPHILS PERCENT AUTO 0 % (0-2); EOSINOPHILS ABSOLUTE AUTO 0.02 K/mm3 (0.00-0.68); EOSINOPHILS PERCENT AUTO 0 % (0-6); Hematocrit 24.7 % (33.0-51.0); Hemoglobin 8.2 g/dL (11.5-16.0); IMMATURE GRAN ABSOLUTE AUTO 0.23 K/mm3 (0.00-0.10); IMMATURE GRAN PERCENT AUTO 2 % (0-1); LYMPHOCYTES ABSOLUTE AUTO 0.76 K/mm3 (0.84-5.20); LYMPHOCYTES PERCENT AUTO 6 % (21-46); MONOCYTES ABSOLUTE AUTO 0.58 K/mm3 (0.16-1.47); MONOCYTES PERCENT AUTO 5 % (4-13); Mean Corpuscular HGB 29.2 pg (26.0-34.0); Mean Corpuscular HGB Conc 33.2 g/dL (31.5-36.5); Mean Corpuscular Volume 88 fL (80-100); Mean Platelet Volume 10.5 fL (9.1-12.4); NEUTROPHILS PERCENT AUTO 87 % (41-73); Platelet Count 232 K/mm3 (150-400); RDW Coefficient Variation 15.9 % (11.7-14.2); RDW Standard Deviation 50.4 fL (35.1-46.3); Red Blood Cell Count 2.81 M/mm3 (3.80-5.20); White Blood Cell Count 12.31 K/mm3 (4.00-11.30)
--- NOTE | 2020-09-26 06:01 | NUR ---
SHIFT SUMMARY: PT DID WELL T/O NIGHT. VSS. PROPOFOL IS OFF. PT IS ABLE TO ASSIST WITH SOME CARE. VENT SETTINGS ARE 14/330/5/50%. SPO2 >90%. WILL PASS REPORT TO ONCOMING SHIFT
[2020-09-26 06:03] LABS: Calcium, Blood 7.2 mg/dL (8.5-10.1); Creatinine, Blood 2.1 mg/dL (0.40-1.00); Potassium, Blood 5.2 mmol/L (3.5-5.5)
--- NOTE | 2020-09-26 08:10 | NUR ---
INITIAL ASSESSMENT PATIENT INTUBATED AND ON SEDATION. PATIENT CALM AND COOPERATIVE; RESPONDING TO VERBAL STIMULI. PATIENT ANSWERING YES AND NO QUESTIONS WITH NODDING AND SHAKING OF HER HEAD. PATIENT INDICATED THAT SHE IS NOT IN ANY PAIN. PATIENT ASKED IF SHE WOULD LIKE HER SEDATION INCREASED AND SHE SHOOK HER HEAD NO. PATIENT WEAK BUT IS ASSISTING NURSE WITH REPOSITIONING. PATIENT SATTING 90% AND GREATER ON AC 14, TV 330, PEEP 5, 50% FI02. LUNGS CLEAR IN UPPER LOBES AND DIMINISHED IN LOWER LOBES. MODERATE AMOUNT OF CLEAR/ BLOODY SPUTUM BEING SUCTIONED FROM THE ETT. PATIENT IN SR WITH BBB. HR 60S TO 70S. SBP 140S TO 150S. OG TO LIS. HYPOACTIVE BS NOTED. ELIZALDE DRAINING DARK YELLOW/ GREEN COLORED URINE WITH SEDIMENT NOTED. SCAB NOTED TO LOWER LIP. COCCYX AND HEELS REDDENED. BRUISES SCATTERED T/O. PRECEDEX INFUSING AT 0.6 MCG/ KG/ HOUR. BED LOW, CALL LIGHT PLACED IN HAND. WILL CONTINUE TO MONITOR PATIENT FREQUENTLY THROUGHOUT SHIFT.
--- NOTE | 2020-09-26 09:30 | NUR ---
DR. NUNEZ UPDATED ON PATIENT STATUS. INFORMED THAT PATIENT ON 50% FIO2. INFORMED THAT PATIENT IS ON PRECEDEX AT 0.6 MCG/ KG/ HOUR AND THAT PATIENT IS CALM AND COOPERATIVE. INFORMED THAT DR. GUPTA PLACED NUTRITION CONSULT AND ORDERED NS AT 75 MLS/ HOUR. INFORMED THAT KIDNEY LAB INCREASING BUT THAT WBCS DECREASED. ORDERS RECEIVED.
--- NOTE | 2020-09-26 12:30 | NUR ---
PATIENT AFEBRILE. PATIENT CONTINUES TO DENY PAIN AND NEED FOR INCREASED SEDATION. PATIENT SATTING 90% AND GREATER ON FIO2 OF 45%. LUNGS COARSE THROUGHOUT. HR 60S TO 80S. SBP 150S to 160S. R FA AND L FA EDEMATOUS WERE THIS AM. R AC IV CHECKED TO MAKE SURE NOT INFILTRATING FLUIDS INFUSING. ABLE TO DRAW BACK BLOOD FROM R AC AND FLUSHES WELL. LR INFUSING AT 60 MLS/ HOUR. BLOOD SUGAR OF 135; NO COVERAGE INDICATED. NO OTHER ACUTE CHANGES TO NOTE ON AT THIS TIME. WILL CONTINUE TO MONITOR.
--- NOTE | 2020-09-26 16:40 | NUR ---
PATIENT AFEBRILE. PATIENT DENIES PAIN. PATIENT REMAINS ON AIRVO 60 L AND 45% FIO2. HR 70S TO 80S. SBP 140S TO 150S. URINE CRANBERRY IN COLOR. PIVOT 1.5 TF STARTED AT 25 MLS/ HOUR WITH GOAL OF 40 MLS/ HOUR. 30 ML WATER FLUSH Q4H. TF ABLE TO BE ADVANCED TO GOAL AROUND 0100. NO OTHER ACUTE CHANGES TO NOTE ON AT THIS TIME. WILL CONTINUE TO MONITOR.
--- NOTE | 2020-09-26 18:30 | NUR ---
DR. NUNEZ INFORMED THAT URINE NOW CRANBERRY IN COLOR. ORDER RECEIVED FOR H AND H AT 2000 TONMy [employer]v My Life [employer].
--- NOTE | 2020-09-26 19:00 | NUR ---
SHIFT SUMMARY PATIENT REMAINED INTUBATED AND ON SEDATION. PATIENT REMAINED RESPONDING TO VERBAL STIMULI. PATIENT REMAINED CALM AND COOPERATIVE. PATIENT REMAINED AFEBRILE. PATIENT CONTINUED TO DENY PAIN. PATIENT REMAINED WEAK BUT ABLE TO HELP NURSE WITH REPOSITIONING. PATIENT ON AC 14, TV 330, PEEP 5 AND FIO2 DECREASED FROM 50 TO 45%. PATIENT CONTINUED TO HAVE HEMOPTYSIS. PATIENT REMAINED IN SR WITH BBB, HR 60S TO 90S. SBP 120S TO 160S. SCHEDULED METOPROLOL STARTED FOR SBP IN THE 160S. OG TO LIS UNTIL TUBE FEED STARTED. PIVOT 1.5 STARTED AT 25 MLS/ HOUR WITH A GOAL OF 40 MLS/ HOUR. 30 ML WATER FLUSH Q4H. ELIZALDE DRAINED 740 MLS OF URINE. URINE CHANGED FROM DARK TEA COLORED TO MORE OF A CRANBERRY COLOR THROUGHOUT THE DAY. SEDIMENT REMAINED. NO CHANGE TO SKIN. LR INFUSING AT 60 MLS/ HOUR. PRECEDEX AT 0.6 MCG/ KG/ HOUR. BLOOD SUGARS 135 TO 188. PATIENT APPEARS CONTENT AT THIS TIME. CALL LIGHT IN REACH. REPORT WILL BE GIVEN TO ASSUMING ORGAN INSTALLER NURSE SHORTLY.
--- NOTE | 2020-09-26 19:30 | NUR ---
PATIENT INTUBATED AND SEDATED WITH PRECEDEX AT 0.6 MCG. AWAKENS TO VERBAL STIMULI NODDING YES AND NO TO QUESTIONS. ETT IN PLACE WITH VENT SET AT AC 14,330,5,45% LUNG SOUNDS COARSE, CLEARING AFTER SUCTIONING BLOODY SPUTUM VIA ETT. OG IN PLACE WITH TUBE FEEDING PIVIT 1.5 AT 25 CC/HR PLAN TO INCREASE RATE TO GOAL RATE OF 40 CC/HR AT APROX 0100 IF PATIENT MARIA EUGENIA FEEDINGS. BILAT WRIST RESTRAINTS IN PLACE TO PREVENT ACCIDENTAL EXTUBATION. AFTER ORAL CARE SORE ON RIGHT LIP OPEN AND BLEEDING.
[2020-09-26 20:11] LABS: Hematocrit 27.4 % (33.0-51.0); Hemoglobin 8.8 g/dL (11.5-16.0)
--- NOTE | 2020-09-27 02:35 | NUR ---
AT 0200 PATIENT RESTLESS WITH RESP UP TO 36-40. AND GRIPING SIDE RAIL. SHACKING HEAD NO TO PAIN, YES TO ANXIOUS. CONTINUE TO SUCTION BLOODY SPUTUM. PROPOFOL RESTARTED AT 10 MCG, PRECEDEX CONTINUES AT 0.7 MCG. PATIENT NOW SEEMS MORE RELAXED RESP 27
[2020-09-27 04:43] LABS: BASOPHILS ABSOLUTE AUTO 0.03 K/mm3 (0.00-0.23); BASOPHILS PERCENT AUTO 0 % (0-2); EOSINOPHILS ABSOLUTE AUTO 0.03 K/mm3 (0.00-0.68); EOSINOPHILS PERCENT AUTO 0 % (0-6); Hematocrit 24.5 % (33.0-51.0); Hemoglobin 7.9 g/dL (11.5-16.0); IMMATURE GRAN PERCENT AUTO 2 % (0-1); LYMPHOCYTES ABSOLUTE AUTO 0.56 K/mm3 (0.84-5.20); LYMPHOCYTES PERCENT AUTO 4 % (21-46); MONOCYTES ABSOLUTE AUTO 0.63 K/mm3 (0.16-1.47); MONOCYTES PERCENT AUTO 4 % (4-13); Mean Corpuscular HGB 28.7 pg (26.0-34.0); Mean Corpuscular HGB Conc 32.2 g/dL (31.5-36.5); Mean Corpuscular Volume 89 fL (80-100); Mean Platelet Volume 10.8 fL (9.1-12.4); NEUTROPHILS ABSOLUTE AUTO 13.87 K/mm3 (1.96-9.15); NEUTROPHILS PERCENT AUTO 90 % (41-73); Platelet Count 233 K/mm3 (150-400); RDW Coefficient Variation 16.1 % (11.7-14.2); RDW Standard Deviation 51.4 fL (35.1-46.3); Red Blood Cell Count 2.75 M/mm3 (3.80-5.20); White Blood Cell Count 15.42 K/mm3 (4.00-11.30)
[2020-09-27 04:58] LABS: Albumin, Blood 1.7 g/dL (3.4-5.0); Albumin/Globulin Ratio 0.5 (0.8-1.8); Bilirubin, Total 0.5 mg/dL (0.1-1.0); Bun/Creatinine Ratio 50.3 (12.0-20.0); Calcium, Blood 7.2 mg/dL (8.5-10.1); Creatinine, Blood 1.93 mg/dL (0.40-1.00); Globulin, Blood 3.4 g/dL (2.2-4.0); Magnesium, Blood 3.1 mg/dL (1.6-2.4); Phosphorus, Blood 5.6 mg/dL (2.5-4.9); Potassium, Blood 4.6 mmol/L (3.5-5.5); Total Protein, Blood 5.1 g/dL (6.4-8.2)
--- NOTE | 2020-09-27 06:55 | NUR ---
SUMMARY PATIENT REMAINS INTUBATED AND SEDATED. PRECEDEX TITRATED UP TO 0.7 MCG AND PROPOFOL 10 MCG ADDED TO HELP PATIENT MARIA EUGENIA VENT. PATIENT CONTINUES TO OPEN EYES AND FOLLOW SIMPLE DIRECTIONS. MEDICATED ONCE WITH FENTANYL FOR PAIN AFTER BED BATH. VENT AC 14,330,5,45% CONTINUE TO SUCTION BLOODY SPUTUM T/O NIGHT. OG REMAINS IN PLACE WITH TUBE FEEDING NOW AT GOAL RATE OF 40 CC/HR WITH MIN RESIDUALS. BILAT WRIST RESTRAINTS REMAIN IN PLACE TO PREVENT ACCIDENTAL EXTUBATION DUE TO UNPREDICTABLE SEDATION AND BEHAVIOR.
--- NOTE | 2020-09-27 08:05 | NUR ---
INITIAL ASSESSMENT PATIENT INTUBATED AND ON SEDATION. PATIENT RESPONDS TO VERBAL STIMULI AND FOLLOWS SOME SIMPLE COMMANDS. PATIENT DENIES PAIN. PATIENT AFEBRILE. PATIENT CALM AND COOPERATIVE AT THIS TIME. PATIENT ON VENT SETTINGS OF AC 14, TV 330, PEEP 5 AND 45% FIO2. LUNGS COARSE THROUGHOUT. MODERATE AMOUNT OF THIN, BLOODY SECRETIONS BEING SUCTIONED FROM THE ETT. PATIENT IN SB WITH BBB, HR IN THE 50S. SBP 150S TO 160S. OG IN PLACE. PIVOT 1.5 TF INFUSING AT GOAL RATE OF 40 MLS/ HOUR WITH 30 ML WATER FLUSH Q4H. RESIDUAL OF 30 MLS OBTAINED AND REINSTILLED. HYPOACTIVE BS NOTED. LAST BM DOCUMENTED ON THE . ELIZALDE DRAINING TEA COLORED URINE WITH SEDIMENT NOTED. BRUISES SCATTERED T/O BODY. COCCYX AND HEELS REDDENED. SCAB NOTED TO LOWER LIP. BOTH IVS ARE DRAWING BLOOD BACK AND FLUSHING WELL. LR INFUSING AT 60 MLS/ HOUR. PRECEDEX AT 0.5 MCG/ KG/ HOUR AND PROPOFOL AT 15 MCG/ KG/ MINUTE. BED LOW, CALL LIGHT IN REACH. WILL CONTINUE TO MONITOR PATIENT FREQUENTLY THROUGHOUT SHIFT.
--- NOTE | 2020-09-27 09:00 | NUR ---
DR. NICHOLE UPDATED ON PATIENT STATUS. INFORMED THAT KIDNEY LABS SLIGHTLY BETTER TODAY. INFORMED THAT WBCS HAVE INCREASED. OKAY'D BY DOCTOR TO CONTINUE USING R AC IV LONG FLUSHING WELL AND DRAWING BACK BLOOD; PATIENT IS HARD STICK AND DOESN'T HAVE GOOD VESSELS. DOES NOT WANT TO PLACE PICC AT THIS TIME BECAUSE OF INFECTION. NO SITE IN LEFT ARM FOR ANOTHER POWERGLIDE PER PG NURSE, NANO DOUGHERTY, THAT PLACED CURRENT PG.
--- NOTE | 2020-09-27 12:00 | NUR ---
PATIENT AFEBRILE. NO COMPLAINTS OF PAIN. PROPOFOL INCREASED FROM 15 TO 25 MCG/ KG/ MINUTE AFTER PATIENT NODDED "YES" THAT SHE WANTED TO BE MORE SEDATED. PATIENT REMAINS ON SAME AIRVO SETTINGS. HR IN THE 60S. SBP 140S TO 150S. TF RESIDUAL OF 5 MLS OBTAINED AND REINSTILLED. BLOOD SUGAR OF 275; COVERAGE GIVEN. NO OTHER ACUTE CHANGES TO NOTE ON AT THIS TIME. WILL CONTINUE TO MONITOR.
[2020-09-27 14:42] LABS: Influenza A, PCR Negative (NEGATIVE); Influenza B, PCR Negative (NEGATIVE); Resp Syncytial Virus, PCR Negative (NEGATIVE); SARS-Cov-2 (COVID-19) PCR, MMC Negative (NEGATIVE)
--- NOTE | 2020-09-27 16:00 | NUR ---
PATIENT HAS TEMP OF 99.3 DEGREES FAHRENHEIT. VENT SETTINGS REMAIN THE UNCHANGED. HR 70S TO 90S. SBP 140S TO 180S. TF RESIDUAL OF 5 MLS OBTAINED AND REINSTILLED. NO OTHER ACUTE CHANGES TO NOTE ON AT THIS TIME. WILL CONTINUE TO MONITOR.
--- NOTE | 2020-09-27 17:53 | NUR ---
No family present at time of visit. Prayer provided at bedside. Mrs. Regan is on mechanical ventilation and appeared frail but comfortable. She was not responsive. I will remain available to pt and family.
--- NOTE | 2020-09-27 18:49 | NUR ---
SHIFT SUMMARY PATIENT REMAINED INTUBATED AND ON SEDATION. PATIENT REMAINED CALM, COOPERATIVE AND FOLLOWING SIMPLE COMMANDS. PATIENT DID REQUEST TO BE INCREASED ON SEDATION THROUGHOUT THE SHIFT SO SHE WAS INCREASED UNTIL GRAND-DAUGHTER GOT HERE TO VISIT. PATIENT GIVEN PRN FENTANYL OT FOR COMPLAINT OF PAIN; PATIENT REPORTED RELIEF. PATIENT HAD TMAX OF 99.3 DEGREES FAHRENHEIT. LUNGS REMAINED COARSE THROUGHOUT. PATIENT REMAINED ON VENT SETTINGS OF AC 14, TV 330, PEEP 5, 45% FIO2. PATIENT CONTINUED TO HAVE BLOODY SECRETIONS OF ETT. NEW SPUTUM CULTURE SENT TO LAB. TF REMAINED INFUSING AT GOAL RATE. RESIDUALS 5 TO 30 MLS. NO BM THIS SHIFT. ELIZALDE DRAINED 455 MLS OF TEA COLORED URINE WITH SEDIMENT NOTED. LR REMAINED AT 60 MLS/ HOUR. PRECEDEX CURRENTLY AT 0.5 MCG/ KG/ HOUR AND PROPOFOL AT 15 MCG/ KG/ MINUTE. BLOOD SUGARS 275 AND 157. PATIENT TO HAVE MARGARETTE IN MORNING. PATIENT APPEARS COMFORTABLE AT THIS TIME. BED LOW, CALL LIGHT IN REACH. REPORT WILL BE GIVEN TO ONCOMING ACCOUNTS EXECUTIVE NURSE SHORTLY.
--- NOTE | 2020-09-27 19:30 | NUR ---
PATIENT REMAINS INTUBATED AND SEDATED. PRECEDEX 0.5 MCG AND PROPOFOL 15 MCG PATIENT ABLE TO FOLLOW SIMPLE DIRECTIONS FALLING BACK TO SLEEP EASILY. VENT SET AT AC 14,330,5,45% SUCTIONING BLOODY SPUTUM. OG IN PLACE WITH TUBE FEEDING AT GOAL RATE OF 40 CC/HR. PLAN TO STOP TUBE FEEDING AT MIDNIGHT FOR MARGARETTE TOMORROW.
--- NOTE | 2020-09-28 00:29 | NUR ---
TUBE FEEDING OFF FOR MARGARETTE TOMORROW
[2020-09-28 04:18] LABS: Base Excess Venous 4.9 mmol/L; Bicarbonate Venous 27.7 mmol/L (24.0-30.0); PCO2 Venous 43.3 mmHg (38-42); pH Blood Venous 7.44 (7.34-7.37)
[2020-09-28 04:54] LABS: BASOPHILS ABSOLUTE AUTO 0.02 K/mm3 (0.00-0.23); BASOPHILS PERCENT AUTO 0 % (0-2); EOSINOPHILS ABSOLUTE AUTO 0.35 K/mm3 (0.00-0.68); EOSINOPHILS PERCENT AUTO 3 % (0-6); Hematocrit 24.8 % (33.0-51.0); Hemoglobin 7.8 g/dL (11.5-16.0); IMMATURE GRAN ABSOLUTE AUTO 0.25 K/mm3 (0.00-0.10); IMMATURE GRAN PERCENT AUTO 2 % (0-1); LYMPHOCYTES ABSOLUTE AUTO 0.76 K/mm3 (0.84-5.20); LYMPHOCYTES PERCENT AUTO 6 % (21-46); MONOCYTES ABSOLUTE AUTO 0.55 K/mm3 (0.16-1.47); MONOCYTES PERCENT AUTO 4 % (4-13); Mean Corpuscular HGB 28.9 pg (26.0-34.0); Mean Corpuscular HGB Conc 31.5 g/dL (31.5-36.5); Mean Corpuscular Volume 92 fL (80-100); Mean Platelet Volume 10.9 fL (9.1-12.4); NEUTROPHILS ABSOLUTE AUTO 11.93 K/mm3 (1.96-9.15); NEUTROPHILS PERCENT AUTO 86 % (41-73); Platelet Count 219 K/mm3 (150-400); RDW Coefficient Variation 16.5 % (11.7-14.2); RDW Standard Deviation 54.2 fL (35.1-46.3); White Blood Cell Count 13.86 K/mm3 (4.00-11.30)
[2020-09-28 05:09] LABS: Bun/Creatinine Ratio 57.5 (12.0-20.0); Calcium, Blood 7.2 mg/dL (8.5-10.1); Creatinine, Blood 1.79 mg/dL (0.40-1.00); Magnesium, Blood 3.3 mg/dL (1.6-2.4); Phosphorus, Blood 5.2 mg/dL (2.5-4.9); Potassium, Blood 4.7 mmol/L (3.5-5.5)
--- NOTE | 2020-09-28 07:40 | NUR ---
SUMMARY PATIENT REMAINS INTUBATED AND SEDATED WITH PROPOFOL 20 MCG AND PRECEDEX 0.5 MCG PATIENT OPENS EYES AND FOLLOWS DIRECTIONS WITH SLIGHT STIMULI. VENT CONTINUES AC 14, TV 330, PEEP 5, FIO2 45% PATIENT RESP 20-30'S UP TO HIGH 30'S DURING WEANING. CONTINUE TO SUCTION BLOODY SPUTUM FREQUENTLY. OG IN PLACE CLAMPED AT MIDNIGHT FOR PLAN OF MARGARETTE TODAY.
--- NOTE | 2020-09-28 08:30 | NUR ---
ASSESSMENT- PT SEDATED WTIH PROPOFOL AT 20 MCG/KG/MIN AND PRECEDEX AT 0.5 MCG/KG/HR. AWAKENS TO NAME, ABLE TO FOLLOW BRIEF DIRECTIONS. ORALLY INTUBATED, TUBE SECURE. LUNGS COARSE THROUGHOUT, SUCTIONED BLOODY SECRETIONS. TOLERATING VENT. SR WITH BBB, BP STABLE. PIV RIGHT AC INTACT WITH NS TKO. RIGHT UPPER ARM POWER GLIDE INTACT WITH LR AT 60 CC/HR. ARMS EDEMATOUS, SKIN FRAGILE, THIN. DRY SORE RIGHT UPPER LIP, ETT SECURED AWAY FROM THAT AREA. ABDOMEN SOFT. OGT CLAMPED, NO RESIDUAL. UO VIA ELIZALDE. BILATERAL WRIST RESTRAINTS FOR SAFETY, EXTUBATION RISK. MRSA PRECAUTIONS. REPOSITIONED TO SIDE
--- NOTE | 2020-09-28 09:22 | NUR ---
PLANS FOR MARGARETTE. VSS
--- NOTE | 2020-09-28 09:43 | NUR ---
MARGARETTE DR. HARRIS AT BEDSIDE. TIME OUT COMPLETED. OG TUB REMOVED PER DR. FAROOQ PRE PROCEDURE. RT AT BEDSIDE.ETT PLACEMENT VERIFIED PRE PROCEDURE. PT. PROPOFOL INCREASED TO 45MCG/KG/MIN FOR PROCEDURE. PT. VSS SEE FLOW SHEET.
--- NOTE | 2020-09-28 09:55 | NUR ---
POST PROCEDURE PROPOFOL TITRATED DOWN TO 20MCG/KG/MIN. PT TOLERATED PROCEDURE. VSS RMAIN STABLE.
--- NOTE | 2020-09-28 10:21 | NUR ---
VSS. PT SEDATED, AWAKENS TO NAME. OGT REPLACED. PCXR ORDERED BEFORE STARTING TUBE FEDS
--- NOTE | 2020-09-28 10:29 | NUR ---
DR. NICHOLE HERE-UPDATED. BLOOD CULTURE POSITIVE. PLANS FOR TAGGED WBC SCAN
--- NOTE | 2020-09-28 11:11 | NUR ---
XRAY CONFIRMED OGT POSITION. VSS. BATH DONE
--- NOTE | 2020-09-28 13:05 | NUR ---
OGT PLACEMENT VERIFIED BY XRAY, AIR BOLUS HEARD, CAN ASPIRATE FLUID. TUBE FEEDING RESTARTED. PT AWAKENS TO NAME, CALM, COOPERATIVE, NODS HEAD. PT'S DAUGHTER CALLED-UPDATED. NSR WITH BBB. BP STABLE. IV LASIX GIVEN. URINE TEA COLORED.
--- NOTE | 2020-09-28 15:30 | NUR ---
SMALL SORE ON RIGHT SIDE OF UPPER LIP BLEEDING, ORAL CARE DONE. SMALL BRUISE NOTED TO POSTERIOR RIGHT THIGH. REPOSITIONED. TOLERATING VENT. CALM, COOPERATIVE. TUBE FEED FORMULA CHANGED PER ORDEERS
--- NOTE | 2020-09-28 19:00 | NUR ---
PT WITH STABLE VS. TOLERATING VENT. PT'S DAUGHTER HERE-UPDATED. HAD TAKEN OFF PT'S RESTRAINTS-EXPLAINED TO DAUGHTER PLAN, NOT TO TAKE OFF RESTRAINTS WITHOUT NURSE IN ROOM, QUESTIONS ANSWERED. PT COOPERATIVE, DENIES PAIN, ABLE TO NOD HEAD TO QUESTIONS. REPOSITIONED FOR COMFORT. CONTINUE TO MONITOR
--- NOTE | 2020-09-28 19:45 | NUR ---
PATIENT INTUBATED AND SEDATED WITH PRECEDEX 0.3 AND PROPOFOL 20 MCG, OPENS EYES TO VERBAL AND FOLLOWING SIMPLE DIRECTIONS. ETT IN PLACE WITH VENT AC 14, TV 330, PEEP 5, FIO2 40% CONTINUE TO SUCTION BLOODY SECRETIONS. OG IN PLACE WITH TUBE FEEDING AT GOAL RATE OF 45 CC/HR
[2020-09-29 04:25] LABS: BASOPHILS ABSOLUTE AUTO 0.01 K/mm3 (0.00-0.23); BASOPHILS PERCENT AUTO 0 % (0-2); EOSINOPHILS PERCENT AUTO 4 % (0-6); Hematocrit 23.7 % (33.0-51.0); Hemoglobin 7.4 g/dL (11.5-16.0); IMMATURE GRAN ABSOLUTE AUTO 0.21 K/mm3 (0.00-0.10); IMMATURE GRAN PERCENT AUTO 2 % (0-1); LYMPHOCYTES PERCENT AUTO 6 % (21-46); MONOCYTES ABSOLUTE AUTO 0.38 K/mm3 (0.16-1.47); MONOCYTES PERCENT AUTO 4 % (4-13); Mean Corpuscular HGB 28.8 pg (26.0-34.0); Mean Corpuscular HGB Conc 31.2 g/dL (31.5-36.5); Mean Corpuscular Volume 92 fL (80-100); Mean Platelet Volume 11.1 fL (9.1-12.4); NEUTROPHILS ABSOLUTE AUTO 8.01 K/mm3 (1.96-9.15); NEUTROPHILS PERCENT AUTO 83 % (41-73); NRBC ABSOLUTE 0.02 K/mm3 (0.00-0.02); NRBC Auto 0.2 /100 WBC (0.0-0.2); Platelet Count 205 K/mm3 (150-400); RDW Coefficient Variation 16.3 % (11.7-14.2); RDW Standard Deviation 54.4 fL (35.1-46.3); Red Blood Cell Count 2.57 M/mm3 (3.80-5.20); White Blood Cell Count 9.61 K/mm3 (4.00-11.30)
[2020-09-29 04:39] LABS: Bun/Creatinine Ratio 58.6 (12.0-20.0); Calcium, Blood 7.6 mg/dL (8.5-10.1); Creatinine, Blood 1.81 mg/dL (0.40-1.00); Magnesium, Blood 3.1 mg/dL (1.6-2.4); Phosphorus, Blood 5.7 mg/dL (2.5-4.9); Potassium, Blood 4.8 mmol/L (3.5-5.5)
--- NOTE | 2020-09-29 05:50 | NUR ---
PATIENT AWAKE EASILY FOR WEAN. PROPOFOL OFF AND PRECEDEX REMAINING AT 0.4 MCG. RESP IN HIGH 30'S FOLLOWING DIRECTIONS BUT HAVING DIFFICULTY SLOWING HER RESPIRATIONS, SHACKING HEAD NO WHEN ASKED IF SHE IS IN PAIN, NODDING YES WHEN ASKED IF SHE IS ANXIOUS. SEE RT CHARTING FOR WEAN.
--- NOTE | 2020-09-29 06:42 | NUR ---
SUMMARY PATIENT REMAINS INTUBATED AND SEDATED WITH VENT SET AT AC 14,330,5,40% CONTINUE TO SUCTION BLOODY SPUTUM VIA ETT. PROPOFOL AT 20 MCG, AND PRECEDEX AT 0.4 MCG FOR SEDATION. PATIENT AWAKENS EASILY TO VERBAL STIMULI, NODDING YES AND NO TO QUESTIONS AND FOLLOWING SIMPLE DIRECTIONS. BILAT WRIST RESTRAINTS REMAIN IN PLACE TO PREVENT ACCIDENTAL EXTUBATION DUE TO UNPREDICTABLE SEDATION AND BEHAVIOR. OG IN PLACE WITH VITAL HP AT GOAL RATE OF 45 CC/HR WITH MINIMAL RESIDUALS.
--- NOTE | 2020-09-29 08:10 | NUR ---
INITIAL ASSESSMENT PATIENT INTUBATED AND ON SEDATION. PATIENT RESPONDS TO VERBAL STIMULI AND FOLLOWS SOME SIMPLE COMMANDS. PATIENT NODDING AND SHAKING HEAD TO ANSWER YES AND NO QUESTIONS. PATIENT CALM AND COOPERATIVE. PATIENT AFEBRILE. PATIENT DENIES PAIN. PATIENT WEAK BUT ABLE TO MOVE ALL EXTREMITIES. LUNGS COARSE THROUGHOUT. SMALL AMOUNT OF THIN, BLOODY SECRETIONS BEING SUCTIONED FROM ETT. PATIENT ON VENT SETTINGS OF AC 14, TV 330, PEEP 5 AND 40% FIO2. PATIENT IN SR WITH BBB. HR 60S TO 70S. SBP 140S TO 160S. EDEMA NOTED TO BUE AND BLE. ABDOMEN MILDLY DISTENDED, SOFT, WITH HYPERACTIVE BS NOTED. LAST BM ON THE . MOM GIVEN. OG IN PLACE. VITAL HIGH PROTEIN TF INFUSING AT GOAL RATE OF 45 MLS/ HOUR WITH 30 ML WATER FLUSH Q4H. ELIZALDE DRAINING TEA COLORED URINE WITH SEDIMENT NOTED. SCHEDULED LASIX BEING GIVEN. BRUISES SCATTERED T/O. COCCYS AND HEELS REDDENED. SCAB TO UPPER LIP. PRECEDEX INFUSING AT 0.4 MCG/ KG/ HOUR, PROPOFOL AT 20 MCG/ KG/ MINUTE. BED LOW, CALL LIGHT IN REACH. WILL CONTINUE TO MONITOR PATIENT FREQUENTLY THROUGHOUT SHIFT.
--- NOTE | 2020-09-29 12:00 | NUR ---
PATIENT AFEBRILE. PATIENT DENIES PAIN. PATIENT REMAINS ON SAME VENT SETTINGS. HR 50 TO 70S. SBP IN THE 140S. TF RESIDUAL OF 10 MLS OBTAINED AND REINSTILLED. ANTI EMBOLISM STOCKINGS PLACED. BLOOD SUGAR OF 176; COVERAGE GIVEN. NO OTHER ACUTE CHANGES TO NOTE ON AT THIS TIME. WILL CONTINUE TO MONITOR.
--- NOTE | 2020-09-29 16:00 | NUR ---
PATIENT AFEBRILE. NO SIGNS OF PAIN. VENT SETTINGS REMAIN UNCHANGED. HR IN THE 70S. SBP 90S TO 140S. PATIENT HYPOTENSIVE DUE TO INCREASED SEDATION FOR WHITE TAG STUDY. TF RESIDUAL OF 10 MLS OBTAINED AND REINSTILLED. TF INFUSING AT NEW GOAL RATE OF 50 MLS PER HOUR WITH 60 ML WATER FLUSH Q4H SINCE 1300. NO OTHER ACUTE CHANGES TO NOTE ON AT THIS TIME. WILL CONTINUE TO MONITOR.
--- NOTE | 2020-09-29 19:27 | NUR ---
SHIFT SUMMARY PATIENT REMAINED INTUBATED AND ON SEDATION. PATIENT REMAINED CALM, COOPERATIVE AND FOLLOWING SIMPLE COMMANDS. PATIENT REMAINED AFEBRILE. PATIENT HAD NO COMPLAINTS OF PAIN. PATIENT REMAINED WEAK BUT ABLE TO MOVE ALL EXTREMITIES. PATIENT REMAINED ON AC 14, TV 330, PEEP 5 AND 40% FIO2. LUNGS REMAINED COARSE THROUGHOUT. REMAINED SUCTIONING UP BLOODY SECRETIONS FROM ETT. PATIENT REMAINED IN SB TO SR WITH BBB, HR 50S TO 70S. SBP 90S TO 180S. PATIENT ONLY HYPOTENSIVE WHEN MORE SEDATED FOR WHITE TAG STUDY. ANTI EMBOLISM PLACED TODAY. PATIENT REMAINS EDEMATOUS. PATIENT GIVEN MOM THIS SHIFT HAS NOT HAD BM IN 5 DAYS. VHP INCREASED TO NEW GOAL RATE OF 50 MLS/ HOUR WITH 60 ML WATER FLUSH Q4H. RESIDUALS 10 TO 15 MLS. ELIZALDE DRAINED 775 MLS OF TEA COLORED URINE WITH SEDIMENT. PATIENT RECEIVED SCHEDULED LASIX. NO CHANGE TO SKIN. PRECEDEX INFUSING AT 0.4 MCG/ KG/ HOUR, PROPOFOL AT 25 MCG/ KG/ MINUTE. BLOOD SUGARS RANGED FROM 125 TO 176. WHITE TAG STUDY PERFORMED THIS SHIFT. PATIENT'S GRANDDAUGHTER HERE TO VISIT. PATIENT APPEARS COMFORTABLE AT THIS TIME. BED LOW, CALL LIGHT IN REACH. REPORT GIVEN TO ONCOMING CLINICAL EDUCATION ACADEMIC COORDINATOR NURSE.
--- NOTE | 2020-09-29 21:00 | NUR ---
ASSUMPTION OF CARE PT INTUBATED AND SEDATED, VENT SET TO AC 14/330/ PEEP 5 FIO2 40%, BLOOD STREAKED SECRETIONS FROM ETT. PT AROUSES TO VERBAL STIMULI, FOLLOWS DIRECTIONS, ASSISTS WITH TURNS AND OTHER NURSING CARE. PROPOFOL AND PRECEDEX INFUSING, SEE FLOWSHEET FOR RATES/TITRATIONS. MONITOR SHOWS SINUS RHYTHM WITH BB, HR 70'S, BP STABLE. TF INFUSING @ 50ml/hr, BT HYPERACTIVE, PT WITH SMALL STOOL THIS EVENING. ELIZALDE IN PLACE DRAINING CLOUDY TEA/GREEN TINGED URINE. PT ARAUZ, CALL LIGHT WITHIN REACH.
[2020-09-30 04:46] LABS: BASOPHILS ABSOLUTE AUTO 0.01 K/mm3 (0.00-0.23); BASOPHILS PERCENT AUTO 0 % (0-2); EOSINOPHILS ABSOLUTE AUTO 0.27 K/mm3 (0.00-0.68); EOSINOPHILS PERCENT AUTO 4 % (0-6); Hematocrit 20.9 % (33.0-51.0); Hemoglobin 6.4 g/dL (11.5-16.0); IMMATURE GRAN ABSOLUTE AUTO 0.36 K/mm3 (0.00-0.10); IMMATURE GRAN PERCENT AUTO 5 % (0-1); LYMPHOCYTES PERCENT AUTO 8 % (21-46); MONOCYTES PERCENT AUTO 4 % (4-13); Mean Corpuscular HGB 27.9 pg (26.0-34.0); Mean Corpuscular HGB Conc 30.6 g/dL (31.5-36.5); Mean Corpuscular Volume 91 fL (80-100); NEUTROPHILS ABSOLUTE AUTO 5.61 K/mm3 (1.96-9.15); NEUTROPHILS PERCENT AUTO 79 % (41-73); Platelet Count 172 K/mm3 (150-400); RDW Coefficient Variation 16.5 % (11.7-14.2); Red Blood Cell Count 2.29 M/mm3 (3.80-5.20); White Blood Cell Count 7.15 K/mm3 (4.00-11.30)
[2020-09-30 05:00] LABS: Calcium, Blood 7.5 mg/dL (8.5-10.1); Creatinine, Blood 1.83 mg/dL (0.40-1.00)
--- NOTE | 2020-09-30 06:41 | NUR ---
SHIFT SUMMARY PT REMAINS INTUBATED AND SEDATED T/O NIGHT, REMAINS AROUSABLE TO VERBAL STIMULI, FOLLOWS DIRECTIONS, MINIMALLY ASSISTS WITH TURNS, VERY WEAK. VENT SET TO AC 14/330 PEEP 5 FIO2 40%, BLOODY SECRETIONS PER ETT AND COARSE LS CONTINUE. SEDATION VACATION THIS SHIFT AND SBT, RESPIRATORY RATE INCREASED TO 35-38 WITH TV 200'S, WOB INCREASED PT REPORTS FEELING TIRED AND REQUESTS SBT END. PT APPEARS ANXIOUS/SCARED WHILE SEDATION DECREASED, DENIES PAIN/DISCOMFORT, HELD THIS NURSES HAND AND DID NOT WANT TO LET GO, PROVIDED THERAPEUTIC TOUCH AND CONVERSATION WITH PT, ASKED PT IF SHE WOULD LIKE PASTORAL CARE TO COME IN AND PRAY WITH HER, PT NODS HEAD YES. VERY SMALL BM THIS SHIFT, ABLE TO VISUALIZE MODERAT AMOUNT OF STOOL THAT REMAINS IN RECTUM, SUPPOSITORY ADMINISTERED THIS AM. ELIZALDE CONTINUES TO DRAIN GREAN/TEA COLORED URINE.
--- NOTE | 2020-09-30 07:30 | NUR ---
PT RECEIVED FROM TAMERA TOMAS. PT ON VENTILATOR AC 14/TV 330/FIO2 40%/PEEP 5. LUNGS COARSE THROUGHOUT, SPUTUM RETURNS THICK AND RED TINGED. TOLERATING WELL. PT GRIMACES TO STIMULI, BRUISING NOTED OVER HER ENTIRE BODY, RIGHT UPPER LIP WITH SCAB, HANDS AND ARMS WITH EDEMA, WIGGLES FEET TO TOUCH, OG WITH TUBE FEEDING, <10ML RESIDUAL, 1 UNIT PRBC'S PREPARED AND STARTED, VITAL SIGNS STABLE. ELIZALDE DRAINING WITH DARK YELLOW W/ SEDIMENT.
--- NOTE | 2020-09-30 14:30 | NUR ---
AND PALLIATIVE CARE SPOKE WITH THE FAMILY REGARDING PATIENTS CONDITION. PROPOFOL WAS PUT ON STANDBY AND PT WAS ALLOWED TO INTERACT WITH THE FAMILY. PT BEGAN BREATHING RAPIDLY AND HER BLOOD PRESSURE WAS INCREASING, SHE WAS SWEATY AND VISIBLY UPSET. THE FAMILY WAS STANDING AROUND HER CRYING AND TALKING WITH HER, MAKING HER RESPIRATIONS CONTINUE TO INCREASE AND HER BLOOD PRESSURE CONTINUE TO CLIMB. I CAME IN AND TOLD THE FAMILY THAT I NEEDED TO TURN HER MEDICATION BACK ON AND ASKED HER IF SHE NEEDED SOME PAIN MEDICATION, I TURNED ON THE PROPOFOL AND MEDICATED WITH MORPHINE, WITH IMPROVEMENT IN PATIENTS CONDITION. PATIENT WAS THEN MEDICATED WITH 25MCG OF FENTANYL FOR CONTINUED DISCOMFORT.
--- NOTE | 2020-09-30 16:00 | NUR ---
PT TO CT SCAN FOR REPEAT SCANS PER FAMILY REQUEST. TOLERATED WELL.
--- NOTE | 2020-09-30 17:03 | NUR ---
Summary of multiple visits and family conferences, case conferences t/o day with ICU nurses, Electrician Outside, RT and Drs. Family arrived to discuss care. Initially, they planned to transition to comfort care tomorrow after family from out of area were able to arrive and see pt. This was reversed after family spoke to pt and she indicated to them she wanted "to keep fighting" by nodding. returned and met with them again to answer additional questions and decision was made to continue with current plan of care. I spent a significant amount of time after that with family and Veronica. She asked questions about CPR and "Can she on the vent?". After a thorough follow up discussion Veronica requests that if pt's heart stops that we not do CPR and that DNR orders be instituted. We discussed buttermaker continuous churn ventilation if pt is unable to wean off the vent in the next 7-9 days. Veronica states that she and her grandma have spoken about this and her grandma would NOT want a trach placed for nursing home ventilation. I asked her to consider what they would want to do if pt is weaned off the vent but expreiences increased resp failure again. Veronica doesn't believe they would want Enriqueta reintubated but wants to consider this further before making any decisions today. Much support offered to family. Electrician Outside came in and encouraged and prayed with them. RNs in and frequently tending to Enriqueta t/o our multiple conversations. I reported to on family request for no CPR. New code status orders entered by . Additional family still coming. I reminded family that only one family member would be able to come in per day at this time. They verbalized understanding. Enriqueta was able to indicate she is not experiencing pain with a nod of her head. When medications were decreased to allow interaction, anxiety and restlessness noted along with increased HR and BP per monitor. Plan for daily contact with family as staffing allows.
--- NOTE | 2020-09-30 17:35 | NUR ---
Spiritual care note: Met with dtr, Sarahi, and 2 grand-dtrs at bedside. All are tearful and requesting prayer for a clear path. Rima from palliative care did a great job explaining pt's decline and poor prognosis--reccomending comfort care or at least DNR. I met with dtr later in the afternoon for quite a while. She explained that when physician asked Enriqueta about changing code status, Enriqueta was adamant she wanted to "keep fighting." Dtr, Sarahi, can see that her mom is suffering and verbalizes understanding that pt is nearing end-of-life. "But I just can't go against her wishes." Saraih beleives that if "God wanted to take her, He would." Apparently, family did make the decision to move to DNR after it was explained that a ventilator does not keep someone's heart beating. Family thought "life-support" facilitated all major organ functions. Sarahi is very tearful and responded well to theraputic listening/spiritual direction/prayer. I suspect this family will need continued coaching as they have very low medical literacy. Nuclear Equipment Research Engineer services will remain available.
--- NOTE | 2020-09-30 18:45 | NUR ---
GELACIO HAS DONE WELL FOR THE MAJORITY OF THE DAY. SHE HAS BEEN ON PROPOFOL @25MCG/KG/MIN, PRECEDEX 0.6MCG/KG/HR, SHE HAD A BRIEF PERIOD WHERE HER PROPOFOL WAS TURNED OFF SO THAT SHE COULD COMMUNICATE WITH HER DAUGHTER AND GRANDDAUGHTERS. SHE BECAME VERY UPSET, WITH TACHYPNEA AND HYPERTENSION, DIAPHORESIS AND TEARS. SHE HAD HER MEDS TURNED BACK ON AND MEDICATED WITH MORPHINE. SHE WAS TAKEN TO RADIOLOGY FOR HEAD,NECK AND CHEST CT, ALSO RECEIVED REPEAT BLOOD CULTURES. PT WAS MEDICATED AGAIN JUST PRIOR TO GOING AND TOLERATED THE TRANSPORT WELL. UPON RETURNING SHE HAS BEEN RESTING BETTER, BREATHING EASIER. HER RESIDUALS DID INCREASE THIS AFTERNOON FROM <10 TO 210. SHE HAD THE INCREASE IN FLUID BOLUSES TO 150 Q4H. STILL NO BOWEL MOVEMENT. ARMS REMAIN EDEMATOUS AND ELEVATED ON PILLOWS, URINE CONTINUES WITH GOOD OUTPUT. PT APPROPRIATE IN NODS AND SHAKES WHEN ANSWERING QUESTIONS.
--- NOTE | 2020-09-30 21:00 | NUR ---
ASSUMPTION OF CARE PT INTUBATED AND SEDATED, AROUSES TO VERBAL STIMULI, PT IS ABLE TO ANSWER YES/NO QUESTIONS BUT DUE TO PRFOUND WEAKNESS HEAD NODS CAN BE DIFFICULT TO DISCERN BETWEEN YES/NO. NO COUGH REFLEX PRESENT UPON INITIAL ASSESSMENT, SEDATION DECREASED, SEE FLOWSHEET. MONITOR SHOWS SINSUR RHYTHM WITH BBB, HR 50'S-60'S, BP STABLE. PT WITH OG, MODERATE AMOUNT OF RESIDUALS. ELIZALDE IN PLACE DRAINING CLEAR YELLOW URINE. SEE SHIFT ASSESSMENT FOR FULL ASSESSMENT.
--- NOTE | 2020-09-30 22:00 | NUR ---
PT WITH HYPOTENSION, MAPS 50'S, PT NOT AROUSABLE TO VERBAL STIMULI, SEDATION PLACED ON SB. PT BECAME MORE ALERT, FOLLOWING COMMANDS, BP IMPROVED. SEDATION RESTARTED AT LOWER RATE.
--- NOTE | 2020-10-01 00:31 | NUR ---
TO PTS ROOM R/T VENT ALARM, PT WITH HIGH PEAK PRESSURES, FIGHTING VENT, LS WHEEZY. RT TO ROOM, DUONEB ADMINISTERED. SEDATION INCREASED.
[2020-10-01 05:16] LABS: Base Excess Venous 2.1 mmol/L; Bicarbonate Venous 25.9 mmol/L (24.0-30.0); PCO2 Venous 51.4 mmHg (38-42); PO2 Venous 124 mmHg (38-42); pH Blood Venous 7.34 (7.34-7.37)
[2020-10-01 05:20] LABS: Hematocrit 25.2 % (33.0-51.0); Hemoglobin 7.9 g/dL (11.5-16.0); Mean Corpuscular HGB 28.7 pg (26.0-34.0); Mean Corpuscular HGB Conc 31.3 g/dL (31.5-36.5); Mean Corpuscular Volume 92 fL (80-100); Mean Platelet Volume 10.6 fL (9.1-12.4); Platelet Count 172 K/mm3 (150-400); RDW Standard Deviation 56.9 fL (35.1-46.3); Red Blood Cell Count 2.75 M/mm3 (3.80-5.20); White Blood Cell Count 10.21 K/mm3 (4.00-11.30)
[2020-10-01 05:44] LABS: BAND PERCENT MAN 1 % (0-8); BASOPHILS PERCENT MAN 0 % (0-2); Bun/Creatinine Ratio 63.5 (12.0-20.0); Calcium, Blood 7.8 mg/dL (8.5-10.1); Creatinine, Blood 1.92 mg/dL (0.40-1.00); EOSINOPHILS PERCENT MAN 4 % (0-6); LYMPHOCYTES PERCENT MAN 4 % (21-46); MONOCYTES PERCENT MAN 2 % (4-13); MYELOCYTE ABSOLUTE MAN 0.51 K/mm3 (0.00-0.00); MYELOCYTE PERCENT MAN 5 % (0-0); NEUTROPHILS ABSOLUTE MAN 8.67 K/mm3 (1.96-9.15); Potassium, Blood 5.3 mmol/L (3.5-5.5); SEG NEUTROPHILS PERCENT MAN 84 % (41-73); TOTAL CELLS COUNTED 100
--- NOTE | 2020-10-01 05:47 | NUR ---
SHIFT SUMMARY PT REMAINS INTUBATED AND SEDATED, SBT DURING SEDATION VACATION, PT FAILED SBT R/T LOW TIDAL VOLUMES. PT WITH INCREASED SECRETIONS THIS SHIFT, PURULENT AND BLOODY, REQUIRING FREQUENT SUCTIONING. MONITOR SHOWS SINUS RHYTHM WITH HR 50'S-70'S, HYPERTENSION NOTED. TF RESTARTED, LOW RESIDUALS. ELIZALDE IN PLACE AND DRAINING YELLOW URINE. PT MOVES ALL EXREMETIES, PROFOUND WEAKNESS NOTED, PT UNABLE TO ASSIST WITH TURNS.
--- NOTE | 2020-10-01 08:00 | NUR ---
PT REMAINS INTUBATED, SEDATED, AND RESTRAINED. OPENS EYES TO VERBAL, FOLLOWS COMMANDS, AND NODS HEAD APPROPRIATELY TO "YES" OR "NO" QUESTIONS. TITRATING PROPOFOL AND PRECEDEX FOR SEDATION. PT ANXIOUS AND GRIMACING AT TIMES-MED WITH FENTANYL 50 MCG IVP X 1-SEE EMAR. PT REMAINS AFEBRILE. ECG SHOWS SR WITH BBB. SBP TRENDING 150-170'S. ROUTINE AM METOPROLOL GIVEN. PT BNP REMAINS ELEVATED AND SHE HAS GENERALIZED EDEMA.LUNGS COARSE AND TIGHT THROUGH OUT. MAINTAINS SATS>90% ON VENT AC 14, RR 22-28, TV 330, PEEP 5, FIO2 45%. SUCTION OCCASIONALLY PRODUCTIVE OF LARGE AMOUNT OF THICK, PURULENT, OLD-BLOODY SECRETIONS. TOLERATING OGTF WELL. ELIZALDE WITH SMALL AMOUNT OF DARK, YELLOW URINE TO UROMETER.
--- NOTE | 2020-10-01 11:49 | NUR ---
RIGHT UPPER ARM EXTENDED DWELL CATHETER INFILTRATED. LEFT AC IV ALSO NOT PATENT. TERRELL MERA RN TO PLACE EXTENDED DWELL CATHETER.
--- NOTE | 2020-10-01 13:04 | NUR ---
SEDATION RESUMED ONCE EXTENDED DWELL CATHETER PLACED. PT WAS AGITATED, SATS 85%, AND PEAK PRESSURE 44. TITRATED PROPOFOL UP TO 30 MCG/KG/MIN, PRECEDEX TO 0.6 MCG/MIN, AND MED WITH FENTANYL 50 MCG IVP X 1. PT REPOSITIONED IN BED-ETT SUCTION NONPRODUCTIVE. FIO2 TITRATED UP TO 55% TO KEEP SAT 90%.
--- NOTE | 2020-10-01 13:26 | NUR ---
SAMARIA RN @ BEDSIDE ATTEMPTING TO PLACE PICC LINE. SPO2 DOWN TO 60'S. DR. BALDWIN NOTIFIED. ORDER GIVEN TO INCREASE PEEP TO 20.
--- NOTE | 2020-10-01 13:46 | NUR ---
FIO2 TITRATED DOWN TO 45% AND SATS >90%. MAP TRENDING LESS THAN 60. PROPOFOL TITRATED DOWN TO 25 MCG/KG/MIN AND PRECEDEX TITRATED DOWN TO 0.5 MCG/KG/HR.
--- NOTE | 2020-10-01 14:27 | NUR ---
Received call from Pt's daughter Delilah. Delilah reports having conversation with family including spouse. Delilah reports if BIPAP becomes necassary and if appropriate then family is willing to try BIPAP for Pt. Spoke with Dr Ritchie and relayed family wishes.
--- NOTE | 2020-10-01 14:45 | NUR ---
DR. BALDWIN IN TO SEE PT. PEEP INCREASED TO 8. PT TO RECEIVE ALBUMIN AND LASIX PER DR. BALDWIN ORDERS-SEE EMAR.
--- NOTE | 2020-10-01 17:10 | NUR ---
PT WAS OFF SEDATION FOR APROXIMATELY 1 HOUR WHILE PICC LINE WAS BEING PLACED. DURING THAT TIME, SHE BECAME AGITATED. RESIRATORY RATE 32, PT USING ACCESSORY MUSCLES TO BREATH, AND PT PULLING ON RESTRAINTS. VENT PLACED ON PS AND PT MAINTAINED SATS90% UNTIL APROX 1705. AT THAT TIME, SEDATION WAS RESUMED, SATS DROPPED TO 85% ON PS. SAVANNA RT @ BEDSIDE-DR. BALDWIN UPDATED. VENT RESUMED ON AC MODE RATE 14, TV CHANGED TO 485, PEEP 8, FIO2 45%-SATS>90% PT MED WITH FENTANYL 50 MCG IVP X 1 FOR PAIN AND SEDATION ADJUNCT. ALBUMIN AND LASIX INITITATED-SEE EMAR.
--- NOTE | 2020-10-01 18:00 | NUR ---
PT RESTING QUIETLY ON VENT WHEN NOT DISTURBED WITH PROPOFOL DRIP @ 25 MCG/KG/MIN AND PRECEDEX @ 0.5MCG/KG/HR. INCONTINENT OF SMALL, BROWN, PASTY STOOL. HARIKA CARE AND PARTIAL LINEN CHANGE COMPLETED. PT REPOSITIONED TO COMFORT ON LEFT SIDE.
--- NOTE | 2020-10-01 21:17 | NUR ---
Care Assumed 1900 Pt intubated, sedated, and SWB. Propofol at 25 mcg/kg/min and Precedex 0.5 mcg/kg/hr, infusing via PICC to DUNCAN. Vent settings of AC 14/385/8/45%, SPO2 > 95%, tolerating well. Pt able to follow commands, opens eyes, nods yes/no to simple commands, and moves all extrems except left arm. Grimacing during oral care. Pt remains afebrile. VHP at goal of 50 ml/hr, residual of 40 mls. VSS. NSR with BBB. Arrington in place, draining to gravity to yellow clear urine in bag. Will continue to monitor.
--- NOTE | 2020-10-02 01:00 | NUR ---
Update Spoke to pts granddaughter and daughter via phone and updated on pt status. All questions answered. Pt continues to follow directions, opens eyes, moves all extrems, and nods yes/no to simple commands. Pt appears sad when updating on family members calls and messages. Family would like pt to know that she is loved and they are praying for her. Pt nods head yes. Pt denies pain at this time and nods yes when asked if she knows where she is. Pt continues to have small bloody/king colored secretion's during ETT suction. Vent and propofol/precedex settings unchanged.
[2020-10-02 05:19] LABS: BASOPHILS ABSOLUTE AUTO 0.01 K/mm3 (0.00-0.23); BASOPHILS PERCENT AUTO 0 % (0-2); EOSINOPHILS ABSOLUTE AUTO 0.22 K/mm3 (0.00-0.68); EOSINOPHILS PERCENT AUTO 3 % (0-6); Hematocrit 22.7 % (33.0-51.0); Hemoglobin 7.2 g/dL (11.5-16.0); IMMATURE GRAN ABSOLUTE AUTO 0.43 K/mm3 (0.00-0.10); IMMATURE GRAN PERCENT AUTO 5 % (0-1); LYMPHOCYTES ABSOLUTE AUTO 0.85 K/mm3 (0.84-5.20); LYMPHOCYTES PERCENT AUTO 10 % (21-46); MONOCYTES ABSOLUTE AUTO 0.33 K/mm3 (0.16-1.47); MONOCYTES PERCENT AUTO 4 % (4-13); Mean Corpuscular HGB 29.1 pg (26.0-34.0); Mean Corpuscular HGB Conc 31.7 g/dL (31.5-36.5); Mean Corpuscular Volume 92 fL (80-100); Mean Platelet Volume 11.1 fL (9.1-12.4); NEUTROPHILS PERCENT AUTO 78 % (41-73); Platelet Count 150 K/mm3 (150-400); RDW Coefficient Variation 16.5 % (11.7-14.2); RDW Standard Deviation 55.4 fL (35.1-46.3); Red Blood Cell Count 2.47 M/mm3 (3.80-5.20); White Blood Cell Count 8.44 K/mm3 (4.00-11.30)
[2020-10-02 05:36] LABS: Albumin, Blood 2.8 g/dL (3.4-5.0); Anion Gap 8 mmol/L (6-16); Blood Urea Nitrogen 130 mg/dL (8-24); Bun/Creatinine Ratio 67.4 (12.0-20.0); CO2, Blood 27 mmol/L (21-32); Calcium, Blood 7.8 mg/dL (8.5-10.1); Chloride, Blood 107 mmol/L (98-108); Creatinine, Blood 1.93 mg/dL (0.40-1.00); Glomerular Filtration Rate 26 (60-); Glucose, Blood 170 mg/dL (70-99); Phosphorus, Blood 6.4 mg/dL (2.5-4.9); Potassium, Blood 5.1 mmol/L (3.5-5.5); Sodium, Blood 142 mmol/L (136-145)
[2020-10-02 05:37] LABS: BAND PERCENT MAN 3 % (0-8); BASOPHILS PERCENT MAN 0 % (0-2); EOSINOPHILS ABSOLUTE MAN 0.25 K/mm3 (0.00-0.68); EOSINOPHILS PERCENT MAN 3 % (0-6); LYMPHOCYTES ABSOLUTE MAN 0.33 K/mm3 (0.84-5.20); LYMPHOCYTES PERCENT MAN 4 % (21-46); METAMYELOCYTE ABSOLUTE MAN 0.25 K/mm3 (0.00-0.00); METAMYELOCYTE PERCENT MAN 3 % (0-0); MONOCYTES ABSOLUTE MAN 0.08 K/mm3 (0.16-1.47); MONOCYTES PERCENT MAN 1 % (4-13); NEUTROPHILS ABSOLUTE MAN 7.51 K/mm3 (1.96-9.15); SEG NEUTROPHILS PERCENT MAN 86 % (41-73); TOTAL CELLS COUNTED 100
--- NOTE | 2020-10-02 06:30 | NUR ---
SBT Propofol and precedex placed on SB. Pt awoke quickly, agitated, pulling on restraints, attempting to talk, and looking panicked/anxious. Held pts hand and explained that she is intubated so she cannot talk but can nod yes/no to questions. Pt denies being in pain initially , nods yes to knowing where she is, and continues to be very anxious/tearful. RT attempted to change settings to PS 15, FIO2 40%, peep of 5 but pt did not tolerate this, see RT note. Pt became hypertensive SBP 203/85, HR 107, sinus tach, with tachypnea. Nodded yes to being in pain, holding on to hand with strong consultant dietitian appears panicked. Sedation turned back on quickly, see flow sheet.
--- NOTE | 2020-10-02 07:30 | NUR ---
Shift Summary Pt intuated and sedated. Vent settings of AC 14/385/8/40%, SPO2 > 90%. Propofol at 25 mcg/kg/min and precedex 0.5 mcg/kg/hr, infusing via PICC to DUNCAN. Pt continues to open eyes, follows commands, and moves all extrems. Pt resting after SBT, see SBT note. NSR with BBB, HR 60-70, BP 140-150's/40-50's. VHR at goal of 50 ml/hr. Arrington in place draining to gravity. See shift reassessment. See shift assessment.
--- NOTE | 2020-10-02 08:00 | NUR ---
ASSUMED CARE: REPORT RECEIVED FROM GENEVA Mckinnon RN. ASSUMED CARE OF THIS PT AT APPROX 0700. ON ASSESSMENT, THE PT IS SEDATED W/ PROPOFOL & PRECEDEX, RESTING QUIETLY. INTUBATED W/ 7.5 ETT NOTED TO BE 21.0 CM DAVID. THE PT WILL AWAKEN TO VERBAL OR PHYSICAL STIMULUS & IS ABLE TO ANSWER YES/NO QUESTIONS BY NODDING HEAD, IS ABLE TO FOLLOW DIRECTIONS. LS ARE COARSE/ TIGHT T/O, PT ON VENT W/ SETTINGS: AC 14/385/8/40%. O2 SATS > 90%. MONITOR SHOWS SR W/ HR 70-80s, HTN INCREASED W/ AGITATION. SCHEDULED AM MEDS PER EMAR. OGT W/ TUBE FEEDS OF VHP INFUSING AT GOAL RATE OF 50 ML/HR W/ 150 ML H2O FLUSH Q4H, SEE I&O FOR RESIDUALS. ELIZALDE PATENT/ DRAINING DARK YELLOW URINE W/ COPIOUS AMNTS SEDIMENT. SKIN CONDITION OVERALL INTACT, FRAGILE & EDEMATOUS. Q2H REPOSITIONING TO MAINTAIN SKIN INTEGRITY. WILL CONTINUE TO MONITOR & UPDATE NEEDED.
--- NOTE | 2020-10-02 10:00 | NUR ---
DR BALDWIN / FAMILY UPDATE: MERLIN HAS SPOKEN AT LENGTH W/ THE PT's FAMILY THIS AM REGARDING UPDATE ON CARE & PLAN FOR CONTINUED CARE - SEE PROVIDER NOTE.
--- NOTE | 2020-10-02 12:32 | NUR ---
YTUBE FEEDINGS: PER DIETARY, TUBE FEED FORMULA & RATE HAVE BEEN CHANGED. PIVOT 1.5 NOW INFUSING AT 25 ML/HR W/ 150 ML H2O FLUSH Q4H. MAY BE ADVANCED TO GOAL RATE OF 30 ML/HR AT APPROX 2000 TONIGHT. INFUSION SET TO ALARM AT THIS TIME A REMINDER.
--- NOTE | 2020-10-02 17:03 | NUR ---
SHIFT SUMMARY: NO ACUTE CHANGES THIS SHIFT. PT REMAINS SEDATED W/ PROPOFOL & PRECEDEX, INTUBATED. PT CONTINUES TO OPEN EYES SPONTANEOUSLY & FOLLOW DIRECTION PROMPTED. LS ARE COARSE T/O, MOD AMNTS THICK BLOOD TINGED/ ALLEN SPUTUM SUCTIONED THROUGH ETT. VENT SETTINGS: AC 14/385/8/40%, O2 SATS > 92% ON AVG W/ OCC DESATS TO 88% WHEN COUGHING, RESOLVED W/ ETT SUCTION. MONITOR SHOWS SR W/ HR 70-80s, BP STABLE. HTN NOTED AT TIMES W/ INCREASED AGITATION, SCHEDULED MEDS PER EMAR. OGT W/ PIVOT 1.5 INFUSING AT 25 ML/HR, SEE PRIOR NOTE REGARDING FORMULA/ RATE CHANGE PER DIETARY. ELIZALDE PATENT/ DRAINING DARK YELLOW URINE W/ COPIOUS AMNTS SEDIMENT. SKIN OVERALL INTACT, EDEMATOUS & FRAGILE. Q2H REPOSITIONING TO MAINTAIN SKIN INTEGRITY. PICC LINE DRESSING CHANGED THIS AFTERNOON. WILL CONTINUE TO MONITOR & REPORT OFF TO ONCOMING RN.
--- NOTE | 2020-10-02 23:00 | NUR ---
Care Assumed 1900 Pt intubated and sedated. Propofol at 25 mcg/kg/min and precedex 0.5 mcg/kg/hr, infusing via PICC to DUNCAN. Pt more weak compared to yesterday. Opens eyes slowly to verbal stimuli, nods yes/no to simple questions. Nods no to being in pain. Vent settings of AC 14/385/8/40%, SPO2 > 90%. Lung sounds coarse. Pt has scant amount of king colored secretion's. Pivot 1.5 tube feed increased to goal of 30 ml/hr, residual of [address] draining to gravity. Skin is edematous and fragile, SWB in place. NSR. VSS. Spoke to pts granddaughter and updated on pt status/current care being done.
--- NOTE | 2020-10-03 01:21 | NUR ---
Update Pt with increased anxiety and agitation during bedbath. Pt nods yes to being anxious but nods no to being in pain. Held pts hand and explained care being done. Strong solutions sales consultant bilaterally. Pt continues to follow commands and opens eyes but extremely weak. Nods yes to being tired. Pt will pt rest. Propofol increased to 35 mcg/kg/min, see flow sheet.
[2020-10-03 04:55] LABS: BASOPHILS ABSOLUTE AUTO 0.03 K/mm3 (0.00-0.23); BASOPHILS PERCENT AUTO 0 % (0-2); EOSINOPHILS ABSOLUTE AUTO 0.35 K/mm3 (0.00-0.68); EOSINOPHILS PERCENT AUTO 3 % (0-6); Hematocrit 21.9 % (33.0-51.0); Hemoglobin 6.9 g/dL (11.5-16.0); IMMATURE GRAN ABSOLUTE AUTO 0.58 K/mm3 (0.00-0.10); IMMATURE GRAN PERCENT AUTO 6 % (0-1); LYMPHOCYTES ABSOLUTE AUTO 1.04 K/mm3 (0.84-5.20); LYMPHOCYTES PERCENT AUTO 10 % (21-46); MONOCYTES ABSOLUTE AUTO 0.38 K/mm3 (0.16-1.47); MONOCYTES PERCENT AUTO 4 % (4-13); Mean Corpuscular HGB 28.9 pg (26.0-34.0); Mean Corpuscular HGB Conc 31.5 g/dL (31.5-36.5); Mean Corpuscular Volume 92 fL (80-100); Mean Platelet Volume 11.4 fL (9.1-12.4); NEUTROPHILS ABSOLUTE AUTO 8.15 K/mm3 (1.96-9.15); NEUTROPHILS PERCENT AUTO 77 % (41-73); Platelet Count 172 K/mm3 (150-400); RDW Coefficient Variation 16.2 % (11.7-14.2); RDW Standard Deviation 52.4 fL (35.1-46.3); Red Blood Cell Count 2.39 M/mm3 (3.80-5.20); White Blood Cell Count 10.53 K/mm3 (4.00-11.30)
[2020-10-03 05:14] LABS: Albumin, Blood 2.2 g/dL (3.4-5.0); Anion Gap 8 mmol/L (6-16); Blood Urea Nitrogen 136 mg/dL (8-24); Bun/Creatinine Ratio 71.2 (12.0-20.0); CO2, Blood 27 mmol/L (21-32); Calcium, Blood 7.8 mg/dL (8.5-10.1); Chloride, Blood 107 mmol/L (98-108); Creatinine, Blood 1.91 mg/dL (0.40-1.00); Glomerular Filtration Rate 27 (60-); Glucose, Blood 159 mg/dL (70-99); Sodium, Blood 142 mmol/L (136-145)
[2020-10-03 05:29] LABS: BAND PERCENT MAN 1 % (0-8); BASOPHILS PERCENT MAN 1 % (0-2); EOSINOPHILS ABSOLUTE MAN 0.21 K/mm3 (0.00-0.68); EOSINOPHILS PERCENT MAN 2 % (0-6); LYMPHOCYTES ABSOLUTE MAN 0.31 K/mm3 (0.84-5.20); LYMPHOCYTES PERCENT MAN 3 % (21-46); METAMYELOCYTE ABSOLUTE MAN 0.21 K/mm3 (0.00-0.00); METAMYELOCYTE PERCENT MAN 2 % (0-0); MONOCYTES ABSOLUTE MAN 0.21 K/mm3 (0.16-1.47); MONOCYTES PERCENT MAN 2 % (4-13); MYELOCYTE PERCENT MAN 1 % (0-0); NEUTROPHILS ABSOLUTE MAN 9.37 K/mm3 (1.96-9.15); SEG NEUTROPHILS PERCENT MAN 88 % (41-73); TOTAL CELLS COUNTED 100
--- NOTE | 2020-10-03 05:35 | NUR ---
Sedation vacation Propofol and precedex placed on SB. Pt tolerated sedation vacation well. Decreased agitation and anxiety compared to yesterday. Able to stay calm, answer questions by nodding yes/no. Nods yes to knowing where she is, updated on being in ICU. Denies pain. Nods yes to having anxiety. Held pts hand, strong coremaking supervisor bilaterally. Updated on pts granddaughter calling, relayed message that granddaughter and daughter love her/are praying for her. Pt became tearful at this point. Asked pt if she would like sedation turned off when daughter comes to visit today, pt nods yes (will relay to dayshift) Asked sedation to be turned back on, see flow sheet. Sedation off from 430 to 451.
--- NOTE | 2020-10-03 05:42 | NUR ---
Shift summary Propofol 30 mcg/kg/min and precedex 0.5 mcg/kg/hr. Pt continues to open eyes, follow directions, and nod yes/no to simple questions. Very anxious, decreased anxiety when hand is being held and speaking to pt. Vent settings AC 14/385/8/40%, SPO2 >90%. Pivot 1.5 at goal, residual of 40 max. No SBT completed during this shift due to RT unavailable. Arrington in place, draining to gravity. Will report to oncoming shift. Called Dr. Jose to update on Hgb of 6.9, no new orders recieved.
--- NOTE | 2020-10-03 07:45 | NUR ---
Received report from Eric PHILIP. Patient is intubated and sedated with vent settings of AC 14, TV 385, FiO2 40% and a PEEP 8 with sats 93%. She opens eye to verbal and nocious stimuli. She has PICC that dressinintact and changed yesterday and is infusing Propofol at 25 mcg/kg/min, Precedex 0.5 mcg/kg/hr and NS TKO. She has OG that in infusing Pivot 1.5 at 30 ml/hr and 150 ml water flushes Q4. She has 14 Fr. daniels draining to gravity dark yellow urine. VSS, See EMR. Oral care, care care, and repostioning done while in room.
--- NOTE | 2020-10-03 09:30 | NUR ---
No changes to vent or gtt setting. Dr Jose by and assessed patient and new orders going in. Daughter called abnd will be by at 1630 for weaning trial. VSS, See EMR. Continues to open eyes and knod to questions with verbal and nocious stimuli.
--- NOTE | 2020-10-03 11:43 | NUR ---
Dr Jose started on Albumin and Lasix gtt and ordered 1 unit PRBC for Hgb in the 6's. Started CPT and she lasted 12 minutes before sats dropped and RT increased FiO2 to 45%. CBG's have been low and Dr Jose stated can DC if 1200 is WNL's and stable.
--- NOTE | 2020-10-03 14:13 | NUR ---
IOncreased lasix gtt from 5mg/hr to 10 mg/hr r/t poor output and ok'd through Dr Jose.VSS, See, EMR. No vent setting or gtt changes. Both Albumins are in. Awakens easily for care. Awaiting daughter to come in for weaning trial.
--- NOTE | 2020-10-03 15:38 | NUR ---
Fer has had increased bloody sputum. She was over pressuring vent and called RT and they bagged her from sats mid 80's to 100% and placed back on vent. Dr Jose did stat chest xray and hes stated lookd to be possibly plugged on left side and stated with mucomyst updraft. He sats are now 97%. VSS, See EMR. Prior to this yovani had small brown stool and changed linen and repositioned.
--- NOTE | 2020-10-03 18:00 | NUR ---
Patient is doing better on vent since episode of high pressure. Propofol at 35 mcg/kg/min, Precedex 0.5, Lasix 10mg/hr. TF at 30ml/hr with 150ml water flushes Q4. Vent settings currently are AC 14, TV 385, FiO2 40% and PEEP 8 and sats 96%. PICC line DUNCAN Dressing intact and site WNl's. Talked with daughter in depth about trach and no trach.
--- NOTE | 2020-10-03 21:51 | NUR ---
Care assumed 1900 Bedside report recieved from TAMERA Pedraza. Pt has Propofol gtt 35 mcg/kg/min, Precedex gtt 0.5 mcg/kg/hr, Lasix gtt 10 mg/hr, infusing via DUNCAN PICC. Pt opens eyes to verbal stimuli but is very weak. Decreased Propofol gtt to 30 mcg/kg/min. Will titrate Lasix gtt to keep urine output of > 125 ml/hr per orders. Pivot 1.5 at goal of 30 ml/hr, residual of 40 mls. NSR. VSS. Vent settings of AC 14/385/8/40%, SPO2 > 90%. Will continue to monitor.
--- NOTE | 2020-10-03 23:59 | NUR ---
Update Pt not tolerating vent. Increased peak pressures (50's), tachypnea, and decreased tidal volumes, SPO2 88-90%. Despite suctioning, thick blood tinged secretion's. Pt having gasping breaths. Sedation increased to propofol 55 mcg/kg/min, precedex continues at 0.5 mcg/kg/hr, and adjunct fentanyl 50 mcg given. Pt became hypertensive with elevated HR from baseline. NSR with occasional PVC's and PAC's. Vent settings of AC 14/385/8/50%, pt tolerating these settings after increased sedation. Pt continues to responds to noxious stimuli but not opening eyes/following commands. Will continue to monitor.
[2020-10-04 03:42] LABS: Hematocrit 25.6 % (33.0-51.0); Hemoglobin 8.2 g/dL (11.5-16.0); Mean Corpuscular HGB 28.9 pg (26.0-34.0); Mean Corpuscular Volume 90 fL (80-100); Mean Platelet Volume 11.3 fL (9.1-12.4); Platelet Count 172 K/mm3 (150-400); RDW Coefficient Variation 15.5 % (11.7-14.2); RDW Standard Deviation 49.6 fL (35.1-46.3); Red Blood Cell Count 2.84 M/mm3 (3.80-5.20); White Blood Cell Count 11.23 K/mm3 (4.00-11.30)
[2020-10-04 03:57] LABS: Albumin, Blood 2.5 g/dL (3.4-5.0); Anion Gap 8 mmol/L (6-16); Blood Urea Nitrogen 138 mg/dL (8-24); Bun/Creatinine Ratio 71.5 (12.0-20.0); CO2, Blood 28 mmol/L (21-32); Calcium, Blood 7.8 mg/dL (8.5-10.1); Chloride, Blood 105 mmol/L (98-108); Creatinine, Blood 1.93 mg/dL (0.40-1.00); Glomerular Filtration Rate 26 (60-); Glucose, Blood 174 mg/dL (70-99); Phosphorus, Blood 6.1 mg/dL (2.5-4.9); Potassium, Blood 4.7 mmol/L (3.5-5.5); Sodium, Blood 141 mmol/L (136-145)
--- NOTE | 2020-10-04 04:57 | NUR ---
SBT AND SEDATION VACATION Pts propofol and precedex placed on SB, see flow sheet. Pt able to follow directions, nod head yes/no to simple questions. Held pts hand and updated on her daughtr visiting her yesterday, Pt nods head yes to knowing her daughter name. Pt is very weak. Attempted to perform SBT but pt pulling low 200 TV with PS at 15. SBT could not be done due to this. Pt became hypertensive (180-200 SBP), sedation vacation stopped. Propofol restarted at 30 mcg/kg/min and precedex 0.5 mcg/kg/hr.
[2020-10-04 06:01] LABS: BAND PERCENT MAN 5 % (0-8); BASOPHILS ABSOLUTE MAN 0.11 K/mm3 (0.00-0.23); BASOPHILS PERCENT MAN 1 % (0-2); EOSINOPHILS ABSOLUTE MAN 0.44 K/mm3 (0.00-0.68); EOSINOPHILS PERCENT MAN 4 % (0-6); LYMPHOCYTES ABSOLUTE MAN 0.56 K/mm3 (0.84-5.20); LYMPHOCYTES PERCENT MAN 5 % (21-46); METAMYELOCYTE ABSOLUTE MAN 0.22 K/mm3 (0.00-0.00); METAMYELOCYTE PERCENT MAN 2 % (0-0); MONOCYTES ABSOLUTE MAN 0.33 K/mm3 (0.16-1.47); MONOCYTES PERCENT MAN 3 % (4-13); MYELOCYTE ABSOLUTE MAN 0.11 K/mm3 (0.00-0.00); MYELOCYTE PERCENT MAN 1 % (0-0); NEUTROPHILS ABSOLUTE MAN 9.43 K/mm3 (1.96-9.15); SEG NEUTROPHILS PERCENT MAN 79 % (41-73); TOTAL CELLS COUNTED 100
--- NOTE | 2020-10-04 06:12 | NUR ---
Shift Summary Pt intubated and sedated. AC 14/385/8/50%, SPO2 > 90%. Propofol at 30 mcg/kg/min, precedex 0.5 mcg/kg/hr. Lasix at 30 mg/hr, titrated to keep urine output greater than 125 per hour. Pt is able to open her eyes to verbal commands. During sedation vacation pt following commands and nodding head yes/no to questions, see sedation vacation note. Increased weakness compared to yesterdays sedation vacation. Pivot at goal of 30 ml/hr. Arrington in place, draining to gravity. Will report to oncoming shift.
--- NOTE | 2020-10-04 13:00 | NUR ---
late am entry. PT WAS CHANGED TO FIO2 40% AND DID NOT TOLEATE HR, RR, AND BP ELEVATED. PT PROPOFOL AND PRECEDEX GTT INCREASED BUT SATS WOULD NOT COME UP AND 02 RETURNED TO 50%. VENT SETTINGS NOTED AT AC 14, 385, 50% AND 8 PEEP. TF ARE NOTED AT 30ML AND ONLY 20ML RESUDUAL NOTED. LASIX GTT AT 30MG/HR AND WILL REPORT I/O TO DR NUNEZ HE IS PRIMARILY CONCERNED WITH I/O SL NEG BALANCE. PT HAS HAD STOOL OF FORMED AND BROWN. EXT ARE PUFFY AND ELEVATED. PICC IS INTACT AND INFUSING OR FLUSHED. PROPOFOL, LASIX, PRECEDEX GTT'S NOTED, SEE FLOWSHEET.
--- NOTE | 2020-10-04 18:28 | NUR ---
1645-APPROX 1715 BRONCOSCOPY WAS DONE PER DR NUNEZ WITH FENTANYL AND PROPOFOL IVT FOR SEDATION THAT WAS HANGING. PT TOLERATED PROCESS WELL AND WAS ON HIGH FIO2 FOR A TIME AND THEN DCREASED TO 50% IFIO2 AND PEEP PER DR NUNEZ WAS INC TO 10. PT HAD SMALL STOOL. I/O WAS REPORTED TO DR NUNEZ AND LASIX GTT TO REMAIN AT 100MG PER HOUR FOR NOW. PROPOFOL AT 15 MCG AND PRECEDEX GTT AT 0.5 MCG. TF REMAINS AT 30ML AND TOLERATING WELL. PT HR DURING PROCEDURE DIPPED INTO MID 50 RANGE. PRECEDEX AND PROPOFOL GTT TITRATED DOWN AND HR REMAIN UPPER 60 RANGE AND 1600 METOPROL DOSE WAS HELD. PT FIO2 CHANGED TO 50% EARLIER AND PT SEEMED TO TOLERATED.
--- NOTE | 2020-10-04 21:21 | NUR ---
Care Assumed 1899 Bedside report recieved from TAMERA Fernández. Pt intubated and sedated. Propofol at 15 mcg/kg/min at start of shift and precedex 0.5 mcg/kg/hr, see flow sheet for titration. Lasix at 100 mg/hr, continous rate. Pt responds to verbal stimuli, opening eyes and squeezing hands/following commands. Vent settings of AC 14/385/12/50%, SPO2 > 90%. VSS. NSR with BBB. Pivot 1.5 at goal of 30 ml/hr, residual of [address] draining to gravity with clear/yellow urine in bag.
[2020-10-05 04:40] LABS: BASOPHILS ABSOLUTE AUTO 0.04 K/mm3 (0.00-0.23); BASOPHILS PERCENT AUTO 0 % (0-2); EOSINOPHILS ABSOLUTE AUTO 0.41 K/mm3 (0.00-0.68); EOSINOPHILS PERCENT AUTO 3 % (0-6); Hematocrit 25.6 % (33.0-51.0); Hemoglobin 8.2 g/dL (11.5-16.0); IMMATURE GRAN ABSOLUTE AUTO 0.68 K/mm3 (0.00-0.10); IMMATURE GRAN PERCENT AUTO 5 % (0-1); LYMPHOCYTES ABSOLUTE AUTO 1.04 K/mm3 (0.84-5.20); LYMPHOCYTES PERCENT AUTO 8 % (21-46); MONOCYTES PERCENT AUTO 3 % (4-13); Mean Corpuscular HGB 29.1 pg (26.0-34.0); Mean Corpuscular Volume 91 fL (80-100); Mean Platelet Volume 11.4 fL (9.1-12.4); NEUTROPHILS ABSOLUTE AUTO 10.53 K/mm3 (1.96-9.15); NEUTROPHILS PERCENT AUTO 80 % (41-73); Platelet Count 219 K/mm3 (150-400); RDW Coefficient Variation 15.8 % (11.7-14.2); RDW Standard Deviation 50.9 fL (35.1-46.3); Red Blood Cell Count 2.82 M/mm3 (3.80-5.20)
[2020-10-05 05:02] LABS: Bun/Creatinine Ratio 69.3 (12.0-20.0); Calcium, Blood 7.7 mg/dL (8.5-10.1); Creatinine, Blood 2.05 mg/dL (0.40-1.00); Magnesium, Blood 2.8 mg/dL (1.6-2.4)
[2020-10-05 05:03] LABS: BAND PERCENT MAN 4 % (0-8); BASOPHILS PERCENT MAN 0 % (0-2); EOSINOPHILS ABSOLUTE MAN 0.13 K/mm3 (0.00-0.68); EOSINOPHILS PERCENT MAN 1 % (0-6); LYMPHOCYTES ABSOLUTE MAN 0.65 K/mm3 (0.84-5.20); LYMPHOCYTES PERCENT MAN 5 % (21-46); METAMYELOCYTE ABSOLUTE MAN 0.26 K/mm3 (0.00-0.00); METAMYELOCYTE PERCENT MAN 2 % (0-0); MONOCYTES ABSOLUTE MAN 0.13 K/mm3 (0.16-1.47); MONOCYTES PERCENT MAN 1 % (4-13); NEUTROPHILS ABSOLUTE MAN 11.92 K/mm3 (1.96-9.15); SEG NEUTROPHILS PERCENT MAN 87 % (41-73); TOTAL CELLS COUNTED 100
--- NOTE | 2020-10-05 07:30 | NUR ---
Received report from Eric PHILIP. Patient is intubated and sedated. She has 7.5 ET and is 22cm at teeth with vent settings ofAC 14, TV 386, FiO2 505, and PEEP 10 and sats 95%. She has PiCC Line to UDNCAN dressing intact and site WNL's and dressing change today. PICC line infusing Lasix at 100mg/hr, Propofol 35 mcg/kg/min, Precedex 0.5 mcg/kg/hr, and NS TKO. She has OG in place infusing Pivot 1.5 at 30 ml/hr and 150 ml water flushes Q4. She has dressing to left lower forearm for small skin tear.
--- NOTE | 2020-10-05 07:53 | NUR ---
Shift assessment Pt continues to be intubated and sedated. Propofol at 35 mcg/kg/min, precedex 0.5 mcg/kg/hr, and lasix at fixed rate. Vent settings AC 14/385/10/50%, spo2 > 90%. Pt has increased peak pressures, elevated blood pressure, and increased RR. See vital sign flow sheet and RT flow sheet. Pts sedation increased with good effect. Pt opens eyes occasional and follows commands but is very weak. Arrington in place draining to gravity, 1000 mls of urine output during shift. Pivot at goal of 30 ml/hr. Will report to oncoming shift. Spoke to granddaughter last night via phone and updated on pt status. All questions answered.
--- NOTE | 2020-10-05 09:30 | NUR ---
No significant changes with patient. He opens eye to verbal stimuli. No gtt or vent senttings. VSS, See EMR. Repositioned and reassessed restraints.
--- NOTE | 2020-10-05 11:30 | NUR ---
Granddaughter called and gave update and her and her mother will be in to talk with Dr Shepard. No vent setting changes. VSS, See EMR. Dr Shepard by and ststed patient continues to be possitive and asked how we could reuce fluids and decreased Propofol to 20 mcg/kg/min and stopped lasix gtt and changed to 100mg Q6. urine output remaisn >30 ml/hr.
--- NOTE | 2020-10-05 13:30 | NUR ---
Patient has no significant chnages, resting quietly with sedation decreased. Opens eye to loud verbal stimuli.
--- NOTE | 2020-10-05 15:30 | NUR ---
Sat and talked with grand daughter and daughter and answered questions. Dr Shepard as well sat with family and answered questions. They stated that they will review with Dr Shepard on Sunday and decide whether or noth positive or negative changes and just want to spend some time with her. VSS, See EMR. Removed restraints s she has not actively moved UE's.
--- NOTE | 2020-10-05 17:47 | NUR ---
Spiritual care note: No family present at time of visit. Provided prayer at bedside. I will remain available.
--- NOTE | 2020-10-05 18:49 | NUR ---
Patient remains lightly sedated and opens eye with loud verbal stimuli. Her vent settings AC 14, TV 385, Fio@ 50% and PEEP 10 with sats 95%. TF continues with Pivot 1.5 at 30 mland 150ml water flushes Q4, Residuals <50. propofol at 20 mcg/kg/min, Precedex at 0.5 mcg/kg/hr, NS TKO. She has 14Fr daniels draining to gravity and had 1200 urine out. all extremitie's elevated with pillows.
--- NOTE | 2020-10-05 22:23 | NUR ---
Care assumed 1900 Bedside report recieved from Karley Pedraza RN. Patient is intubated sedated. Propofol 20 mcg/kg/min, Precedex 0.5 mcg/kg/hr, and NS TKO, infusing via PICC to DUNCAN. Vent settings of AC 14/385/8/45%, spo2 > 90%. Pt is able to open eyes occasionally to loud verbal stimuli but unable to follow commands at this times. Moves lower extrems spontaneously. OG tube in place with PIVOT 1.5 at goal of 35 ml/hr and 150 ml water flushes Q4. Left lower forearm with small skin tear, foam dressing in place. Arrington in place, draining to gravity.
--- NOTE | 2020-10-06 00:11 | NUR ---
Update, vent setting changes During 2299 assessment pt became hypertensive SBP (190-200), diaphortic, increased RR (30's), with increased peak pressures ( 45's), and SPO2 87-92%. Pt recieved Fentanyl 50 mcg, metoprolol 25 mg, and titerated propofol/precedex for increased comfort. Pts vent settings changed to AC 20/300/10/55% with improvement. Pt able to open eyes but unable to follow commands. OG tube with Pivot at goal. Arrington in place, draining to gravity. Pt is diaphortic/warm to touch and rectal probe placed for accurate temp ( 100.6).
--- NOTE | 2020-10-06 04:00 | NUR ---
UPDATE Called Dr. Hanna to update on pts vents settings of AC 20/300/10/55% due to increased peak pressures/RR. Also, updated on pts fever and diaphoresis. Received orders for precaution vibration. And to do collect blood cultures if patients temperature > 101. Also recieved orders to check pts blood sugar and give replacement if needed. Precaution vibration completed with pt bed and pt tolerated well. Peak pressures decreased to 28 and RR 24. SPO2 > 90% Pt tolerating change in settings well. CBG 156 and pts temp 99.1.
[2020-10-06 04:01] LABS: BASOPHILS ABSOLUTE AUTO 0.06 K/mm3 (0.00-0.23); BASOPHILS PERCENT AUTO 0 % (0-2); EOSINOPHILS PERCENT AUTO 2 % (0-6); Hematocrit 24.8 % (33.0-51.0); Hemoglobin 7.8 g/dL (11.5-16.0); IMMATURE GRAN ABSOLUTE AUTO 0.45 K/mm3 (0.00-0.10); IMMATURE GRAN PERCENT AUTO 3 % (0-1); LYMPHOCYTES ABSOLUTE AUTO 1.04 K/mm3 (0.84-5.20); LYMPHOCYTES PERCENT AUTO 7 % (21-46); MONOCYTES ABSOLUTE AUTO 0.45 K/mm3 (0.16-1.47); MONOCYTES PERCENT AUTO 3 % (4-13); Mean Corpuscular HGB Conc 31.5 g/dL (31.5-36.5); Mean Corpuscular Volume 92 fL (80-100); Mean Platelet Volume 11.4 fL (9.1-12.4); NEUTROPHILS ABSOLUTE AUTO 11.75 K/mm3 (1.96-9.15); NEUTROPHILS PERCENT AUTO 84 % (41-73); Platelet Count 238 K/mm3 (150-400); RDW Coefficient Variation 15.9 % (11.7-14.2); RDW Standard Deviation 51.9 fL (35.1-46.3); Red Blood Cell Count 2.69 M/mm3 (3.80-5.20); White Blood Cell Count 14.05 K/mm3 (4.00-11.30)
[2020-10-06 04:20] LABS: Bun/Creatinine Ratio 68.2 (12.0-20.0); Calcium, Blood 7.9 mg/dL (8.5-10.1); Creatinine, Blood 2.14 mg/dL (0.40-1.00); Phosphorus, Blood 6.6 mg/dL (2.5-4.9); Potassium, Blood 3.7 mmol/L (3.5-5.5)
--- NOTE | 2020-10-06 07:13 | NUR ---
Shift Summary Pt tolerating new vent settings well, AC 20/300/10/55%, SPO2 > 90%. Propofol at 20 mcg/kg/min and precedex 0.6 mcg/kg/hr. Pt opens eyes occasionally but unable to follow commands. Pivot at goal of 30 ml/hr, all residual's < 50. Arrington in place, draining to gravity. Rectal probe in place, temp < 101. NSR with BBB and occasional PVC's. Will report to oncoming shift.
--- NOTE | 2020-10-06 08:00 | NUR ---
Receieved report from Eric RN. Patient is intubated and lightly sedated and is able to open eyes with verbal stimuli. She has 7.5 ET and is 22 cm at teeth with vent settings of AC 20, TV 300, FiO2 55% and PEEP 10 with sats 95%. She has OG in place infusing pivot 1.5 at 30 ml/hr goal rate and 150 ml water flushes Q4. She has 14Fr Arrington draining to gravity yellow urine. Just repositioned. She remains out of restraint and shows no signs for need. She has small skin tear weith dressing to LLFA.She has 2-3+ general edema t/o. She has PICC l;ine to DUNCAN dressing intact and site WNL's and is infusing Propofol at 20 mcg/kg/min, Precedex 0.6 mcg/kg/hr, limiting fluid intake.
--- NOTE | 2020-10-06 10:00 | NUR ---
Dr Shepard by and assessed patient and made adjustments to vent, current settings AC 20, TV 300, FiO2 55%, PEEP % with sats 93%. He had me place Propofol on standby and i increased Precedex to 0.7 mcg/kg/hr. VSS, See EMR, changed VAS to Q1hr and elevated UE's higher. Passed am meds and tolerated well.
--- NOTE | 2020-10-06 11:44 | NUR ---
Patient becoming more hypertensive with increased agitation and with Propofol off. Increased Precedex to 1.0 mcg/kg/hr. No other significant changes or vwent setting changes. Sats on current vent settings 91%./
--- NOTE | 2020-10-06 16:00 | NUR ---
Dr Shepard by to check on patient and reduced FiO2 to 45% and now sats >90%. VSS, See EMR. She is easily arousable to verbal stimuli. Granddaughter by and spent about 20 minutes at bedside and gave her update. Precedex remains at 1.0 mcg/kg/hr. Arrington draining to gravity about 100ml/hr, and she still shows 2-3+ generalized edema t/o.
--- NOTE | 2020-10-06 18:00 | NUR ---
Repositioned. Oral care. Small amount of green/kign gelatis stool. Vent settings AC 20, TV 300, FiO2 45%, PEEP 5.0 and sats >90%. PICC line infusing Precedex at 1.0 mcg/kg/hr and Albumin at 100ml/hr. OG infusing Pivot 1.5 at 30 ml/hr and 150 mlwater flushes Q4. Patient had 750 ml yellow urine output.
--- NOTE | 2020-10-06 19:36 | NUR ---
Review of pt in rounding with director of safety zach is to stay the course and evaluate sunday.
--- NOTE | 2020-10-06 22:00 | NUR ---
Care Assumed 1900 Pt intubated and sedated. Vent settings of AC 20/300/5/45%, pts SPO2 decreasing to 85-87%. FIO2 increased to 50% at this time with good effect. Pt tolerating vent well. Precedex at 1 mcg/kg/hr, see flow sheet. Pt is able to open eyes/follow voice when asked to turn head but unable to follow commands, weak. Pivot at goal of 30 ml/hr. NSR with occasional PVS's noted. Arrington cath in place. Will continue to moniotor.
--- NOTE | 2020-10-07 01:58 | NUR ---
Update Pt with increased peak pressures (45's), tachypnea (30's), and "guppy breathing." Able to open eyes with verbal stimuli but too weak to follow commands. Moving all extrems, including rise her arms. Explained to pt the importance of keeping her arms down to prevent self-extubation. Pt appears too weak to lift arms to tubes, will keep close watch. Nodded head "no" once when asked if she is in pain. Vent settings remain the same. Precedex gtt 1.4 mcg/kg/hr. Fentanyl 50 mcg given to pt with good effect, decreased peak pressures and RR (20's). Will continue to monitor.
--- NOTE | 2020-10-07 03:52 | NUR ---
Update - Increased peak pressures Pt with increased peak pressures (45's), RR (30's), and "guppy breathing" once again after being turned during ADL. Treated with fentanyl with good effect. SPO2 decreased to 88% and pt becomes hypertensive (SBP 160's). No secreations via ETT suctioning but scant amount of king/white secreatins during oral care. NSR (HR 60'S). Precedex 11.4 mcg/kg/hr. Pt opens eyes to verbal stimuli.
--- NOTE | 2020-10-07 06:04 | NUR ---
Shift Summary Precedex 1.4 mcg/kg/min. Vent settings AC 20/300/5/60%, SPO2 > 90%. Pts FIO2 demands increased after having another episode of increased peak pressures (45), RR 30's, and "guppy breathing." SPO2 96% after. During ETT suctioning copious amounts of thin red and frothy secretion's. Pt treated with fentanyl 50 mcg. Improved peak pressures to 29, RR 20, and pt appears to be resting. Pt has eyes opens to verbal stimuli. Strong bilateral mason tender. Arrington in place with 250 dark cloudy urine output. NSR. Pt hypertensive during episodes of increased peak pressures and recovers slowly. Will report to oncoming shift.
--- NOTE | 2020-10-07 07:22 | NUR ---
Nurse gave this student permission for care at 0700 on 10/07/20.
--- NOTE | 2020-10-07 08:00 | NUR ---
SHIFT ASSESSMENT PATIENT INTUBATED AND SEDATED. PATIENT RESPONDING TO VERBAL STIMULI. PATIENT DOES NOT APPEAR TO BE IN PAIN AT THIS TIME. LUNG SOUNDS DIMINISHED AND COARSE THROUGHOUT. AC 20, TV 300, PEEP 5 AND FIO2 60%. PATIENT IN SR WITH BBB. HR 60-70, SBP 130-140'S. ELIZALDE CATHETER PATENT- MINIMAL URINE OUTPUT. TF INFUSING AT GOAL RATE. OG RESIDUAL 40 MLS OBTAINED AND REINSTILLED. BOWEL TONES NORMOACTIVE. EDEMA IN UPPER AND LOWER EXTREMETIES. SCATTERED BRUISES NOTED. PRECEDEX INFUSING AT 1.4 MCG/ KG/ HOUR. BED LOW, SIDE RAILS UP CALL LIGHT WITHIN REACH. WILL CONTINUE TO MONITOR PATIENT THROUGHOUT SHIFT.
--- NOTE | 2020-10-07 08:30 | NUR ---
THIS NURSE AGREES WITH THE 0800 STUDENT NURSE SHIFT ASSESSMENT.
[2020-10-07 09:17] LABS: BASOPHILS ABSOLUTE AUTO 0.04 K/mm3 (0.00-0.23); BASOPHILS PERCENT AUTO 0 % (0-2); EOSINOPHILS ABSOLUTE AUTO 0.03 K/mm3 (0.00-0.68); EOSINOPHILS PERCENT AUTO 0 % (0-6); Hematocrit 25.9 % (33.0-51.0); IMMATURE GRAN ABSOLUTE AUTO 0.58 K/mm3 (0.00-0.10); IMMATURE GRAN PERCENT AUTO 4 % (0-1); LYMPHOCYTES PERCENT AUTO 5 % (21-46); MONOCYTES ABSOLUTE AUTO 0.59 K/mm3 (0.16-1.47); MONOCYTES PERCENT AUTO 4 % (4-13); Mean Corpuscular HGB 29.3 pg (26.0-34.0); Mean Corpuscular HGB Conc 30.9 g/dL (31.5-36.5); Mean Corpuscular Volume 95 fL (80-100); Mean Platelet Volume 11.2 fL (9.1-12.4); NEUTROPHILS PERCENT AUTO 86 % (41-73); Platelet Count 306 K/mm3 (150-400); RDW Coefficient Variation 16.6 % (11.7-14.2); RDW Standard Deviation 56.4 fL (35.1-46.3); Red Blood Cell Count 2.73 M/mm3 (3.80-5.20); White Blood Cell Count 14.24 K/mm3 (4.00-11.30)
[2020-10-07 09:50] LABS: Albumin, Blood 3.1 g/dL (3.4-5.0); Albumin/Globulin Ratio 0.9 (0.8-1.8); Calcium, Blood 8.3 mg/dL (8.5-10.1); Creatinine, Blood 2.36 mg/dL (0.40-1.00); Globulin, Blood 3.6 g/dL (2.2-4.0); Magnesium, Blood 2.9 mg/dL (1.6-2.4); Phosphorus, Blood 7.8 mg/dL (2.5-4.9); Potassium, Blood 4.3 mmol/L (3.5-5.5); Total Protein, Blood 6.7 g/dL (6.4-8.2)
[2020-10-07 10:03] LABS: Bun/Creatinine Ratio 66.9 (12.0-20.0)
--- NOTE | 2020-10-07 12:00 | NUR ---
PATIENT HAS TEMP OF 100.7 DEGREES FAHRENHEIT. BLANKET REMOVED AND FAN PLACED ON PATIENT. PATIENT NOW ON PRECEDEX AT 0.7 MCG/ KG/ HOUR AND PROPOFOL AT 10 MCG/ KG/ MINUTE. PATIENT MORE SEDATED THAN EARLIER TO HELP KEEP COMFORTABLE. PATIENT RESPONDING TO NOXIOUS STIMULI. PATIENT ON AC 20, TV 300, PEEP 5, AND 50% FIO2. LUNGS COARSE AND WHEEZY IN LEFT LUNG LOBES. PATIENT COARSE IN R LOBES. LUNGS DIMINISHED THROUGHOUT. HR 60S TO 70S. SBP 1-TEENS TO 160S. PICC DRESSING CHANGED. TF RESIDUAL OF 90 MLS OBTAINED AND REINSTILLED. NO OTHER ACUTE CHANGES TO NOTE ON AT THIS TIME. WILL CONTINUE TO MONITOR.
--- NOTE | 2020-10-07 13:35 | NUR ---
DR. NUNEZ INFORMED OF PATIENT'S SBP IN 180S. DOCTOR STATED TO CONTINUE TO MONITOR AT THIS TIME.
--- NOTE | 2020-10-07 16:00 | NUR ---
REMAINS ON SAME SEDATION AND VENT SETTINGS. PATIENT HAS NO SIGNS OF PAIN. PATIENT HAS TEMP OF 98.9 DEGREES FAHRENHEIT. HR IN THE 70S. SBP 120S TO 140S. TF AT NEW GOAL RATE OF 25 MLS/ HOUR. RESIDUAL OF 35 MLS OBTAINED AND REINSTILLED. NO OTHER ACUTE CHANGES TO NOTE ON AT THIS TIME. WILL CONTINUE TO MONITOR.
--- NOTE | 2020-10-07 17:17 | NUR ---
SHIFT SUMMARY PATIENT HAS REMAINED INTUBATED AND ON SEDATION. PATIENT MORE SEDATED LATER IN SHIFT THAN AT BEGINNING OF SHIFT. PATIENT ONLY ON PRECEDEX THIS AM. PROPOFOL ADDED TO ASSIST IN PATIENT COMFORT. PATIENT RESPONDED ANYWHERE FROM VERBAL TO NOXIOUS STIMULI DEPENDING ON SEDATION. PATIENT HAS REMAINED WEAK BUT HAS BEEN MOVING ALL EXTREMITIES SLIGHTLY. PATIENT HAD TMAX OF 100.9 DEGREES FAHRENHEIT. LUNGS REMAINED COARSE, WHEEZY, DIMINISHED THROUGHOUT SHIFT. PATIENT ON AC 20, TV 300, PEEP 5 AND 50 TO 60% FIO2. PATIENT REMAINED IN SR WITH BBB. HR 60S TO 70S. SBP RANGED FROM 1-TEENS TO 180S. PATIENT REMAINED EDEMATOUS. ABDOMEN MODERATELY DISTENDED, NORMOACTIVE BS NOTED. NO BM THIS SHIFT. PATIENT DECREASED FROM TF GOAL RATE OF 30 TO 25 MLS/ HOUR. RESIDUALS RANGED FROM 35 TO 90 MLS. ELIZALDE DRAINED MINIMAL AMOUNT OF DARK YELLOW COLORED URINE. NO CHANGE IN SKIN. PRECEDEX INFUSING AT 0.5 MCG/ KG/ HOUR AND PROPOFOL AT 10 MCG/ KG/ MINUTE AT THIS TIME. PATIENT APPEARS COMFORTABLE AT THIS TIME. BED LOW, CALL LIGHT IN REACH.
--- NOTE | 2020-10-07 20:00 | NUR ---
PT INTUBATED AND ON LIGHT SEDATION. NOT IN RESTRAINTS. RESPONDING TO PAINFUL STIMULI. VENT SETTINGS 20/300/5/50-60%. AFEBRILE. SR WITH BBB. HYPTERTENSIVE AT TIMES. OGT IN PLACE WITH TF AT GOAL. PT IS EDEMATOUS T/O. ELIZALDE IN PLACE. PRODUCING SMALL AMTS OF URINE. RECTAL TEMP PROBE IN PLACE. PICC TO DUNCAN. PROPOFOL AT 10MCG AND PRECEDEX IS AT 0.5. WILL CONTINUE TO MONITOR
[2020-10-08 03:22] LABS: Hematocrit 26.4 % (33.0-51.0); Hemoglobin 8.1 g/dL (11.5-16.0); Mean Corpuscular HGB 29.2 pg (26.0-34.0); Mean Corpuscular HGB Conc 30.7 g/dL (31.5-36.5); Mean Corpuscular Volume 95 fL (80-100); Mean Platelet Volume 10.8 fL (9.1-12.4); Platelet Count 375 K/mm3 (150-400); RDW Coefficient Variation 16.8 % (11.7-14.2); RDW Standard Deviation 57.6 fL (35.1-46.3); Red Blood Cell Count 2.77 M/mm3 (3.80-5.20); White Blood Cell Count 15.67 K/mm3 (4.00-11.30)
[2020-10-08 03:49] LABS: Albumin, Blood 2.6 g/dL (3.4-5.0); Albumin/Globulin Ratio 0.7 (0.8-1.8); Bilirubin, Total 0.7 mg/dL (0.1-1.0); Bun/Creatinine Ratio 69.1 (12.0-20.0); Creatinine, Blood 2.59 mg/dL (0.40-1.00); Globulin, Blood 3.5 g/dL (2.2-4.0); Total Protein, Blood 6.1 g/dL (6.4-8.2)
[2020-10-08 04:08] LABS: BAND PERCENT MAN 4 % (0-8); BASOPHILS ABSOLUTE MAN 0.15 K/mm3 (0.00-0.23); BASOPHILS PERCENT MAN 1 % (0-2); EOSINOPHILS ABSOLUTE MAN 0.15 K/mm3 (0.00-0.68); EOSINOPHILS PERCENT MAN 1 % (0-6); LYMPHOCYTES ABSOLUTE MAN 1.25 K/mm3 (0.84-5.20); LYMPHOCYTES PERCENT MAN 8 % (21-46); MONOCYTES ABSOLUTE MAN 0.31 K/mm3 (0.16-1.47); MONOCYTES PERCENT MAN 2 % (4-13); MYELOCYTE ABSOLUTE MAN 0.31 K/mm3 (0.00-0.00); MYELOCYTE PERCENT MAN 2 % (0-0); NEUTROPHILS ABSOLUTE MAN 13.47 K/mm3 (1.96-9.15); SEG NEUTROPHILS PERCENT MAN 82 % (41-73); TOTAL CELLS COUNTED 100
--- NOTE | 2020-10-08 06:14 | NUR ---
NO ACUTE CHANGES T/O SHIFT. VENT SETTINGS REMAIN THE SAME.
--- NOTE | 2020-10-08 08:02 | NUR ---
INITIAL ASSESSMENT PATIENT INTUBATED AND SEDATED. PATIENT RESPONDS TO NOXIOUS STIMULI. PATIENT AFEBRILE. NO SIGNS OF PAIN NOTED AT THIS TIME. PATIENT MOVES ALL EXTREMITIES SLIGHTLY TO NOXIOUS STIMULI. PATIENT ON VENT SETTINGS OF AC 20, TV 300, PEEP 5, AND 50% FIO2. LUNGS COARSE AND DIMINISHED THROUGHOUT. NO SECRETIONS NOTED WHEN ETT SUCTIONED. AGONAL BREATHING NOTED. PATIENT IN SR WITH BBB, HR 70S TO 80S. SBP 140S TO 150S. PATIENT EDEMATOUS THROUGHOUT. ABDOMEN MODERATELY DISTENDED; HYPOACTIVE BS NOTED. TF INFUSING AT GOAL RATE. RESIDUAL OF ZERO. LAST BM WAS 2 DAYS AGO. ELIZALDE IN PLACE DRAINING SMALL AMOUNTS OF DARK YELLOW URINE. PATIENT RECEIVING SCHEDULED LASIX. BRUISES SCATTERED ALL OVER BODY. COCCYX AND HEELS REDDED. PATIENT BEING REPOSITIONED Q2H AND PRN. SCAB NOTED TO R UPPER LIP. PRECEDEX INFUSING AT 0.7 MCG/ KG/ HOUR AND PROPOFOL INFUSING AT 10 MCG/ KG/ MINUTE. BED LOW, CALL LIGHT IN REACH. WILL CONTINUE TO MONITOR PATIENT FREQUENTLY THROUGHOUT SHIFT.
--- NOTE | 2020-10-08 12:10 | NUR ---
PATIENT AFEBRILE. NO SIGNS OF PAIN. HR IN THE 60S. SBP 1-TEENS TO 120S. FIO2 NOW 60%. TF RESIDUAL OF 0. NO OTHER ACUTE CHANGES TO NOTE ON AT THIS TIME. WILL CONTINUE TO MONITOR.
--- NOTE | 2020-10-08 16:00 | NUR ---
PATIENT AFEBRILE. NO SIGNS OF PAIN. FIO2 AT 55%. HR IN THE 70S. SBP 120S TO 130S. RESIDUAL OF ZERO. NO OTHER ACUTE CHANGES TO NOTE ON AT THIS TIME. WILL CONTINUE TO MONITOR.
--- NOTE | 2020-10-08 18:58 | NUR ---
SHIFT SUMMARY PATIENT REMAINED INTUBATED AND SEDATED. PATIENT REMAINS RESPONDING TO NOXIOUS STIMULI. PATIENT REMAINED AFEBRILE. NO SIGNS OF PAIN NOTED THIS SHIFT. LUNGS REMAINED COARSE AND DIMINISHED. VENT SETTINGS AC 20, TV 300, PEEP 5 AND FIO2 RANGED FROM 50 TO 60%. PATIENT REMAINED IN SR WITH BBB, HR 60S TO 80S. SBP 90S TO 150S. PATIENT REMAINED EDEMATOUS. TF RESIDUALS ZERO THROUGHOUT SHIFT. NO BM THIS SHIFT. ELIZALDE DRAINED 280 MLS OF DARK YELLOW URINE. NO CHANGE IN SKIN. PATIENT REPOSITIONED THROUGHOUT SHIFT. PRECEDEX AT 0.5 MCG/ KG/ HOUR AND PROPOFOL 10 MCG/ KG/ HOUR. SUSY CONSULTED THIS SHIFT. PATIENT APPEARS COMFORTABLE AT THIS TIME. BED LOW. REPORT WILL BE GIVEN TO ONCOMING REAL TIME OPERATOR NURSE SHORTLY.
[2020-10-09 04:28] LABS: Hematocrit 25.1 % (33.0-51.0); Hemoglobin 7.8 g/dL (11.5-16.0); Mean Corpuscular HGB 29.3 pg (26.0-34.0); Mean Corpuscular HGB Conc 31.1 g/dL (31.5-36.5); Mean Corpuscular Volume 94 fL (80-100); Mean Platelet Volume 10.8 fL (9.1-12.4); Platelet Count 377 K/mm3 (150-400); RDW Coefficient Variation 16.9 % (11.7-14.2); RDW Standard Deviation 58.4 fL (35.1-46.3); Red Blood Cell Count 2.66 M/mm3 (3.80-5.20); White Blood Cell Count 13.62 K/mm3 (4.00-11.30)
[2020-10-09 04:29] LABS: Base Excess Venous -0.8 mmol/L; Bicarbonate Venous 23.3 mmol/L (24.0-30.0); PCO2 Venous 57.7 mmHg (38-42); PO2 Venous 50.1 mmHg (38-42)
[2020-10-09 04:32] LABS: pH Blood Venous 7.27 (7.34-7.37)
[2020-10-09 04:49] LABS: BAND PERCENT MAN 7 % (0-8); BASOPHILS PERCENT MAN 0 % (0-2); EOSINOPHILS PERCENT MAN 0 % (0-6); LYMPHOCYTES ABSOLUTE MAN 0.54 K/mm3 (0.84-5.20); LYMPHOCYTES PERCENT MAN 4 % (21-46); METAMYELOCYTE ABSOLUTE MAN 0.13 K/mm3 (0.00-0.00); METAMYELOCYTE PERCENT MAN 1 % (0-0); MONOCYTES ABSOLUTE MAN 0.81 K/mm3 (0.16-1.47); MONOCYTES PERCENT MAN 6 % (4-13); MYELOCYTE ABSOLUTE MAN 0.27 K/mm3 (0.00-0.00); MYELOCYTE PERCENT MAN 2 % (0-0); NEUTROPHILS ABSOLUTE MAN 11.84 K/mm3 (1.96-9.15); SEG NEUTROPHILS PERCENT MAN 80 % (41-73); TOTAL CELLS COUNTED 100
[2020-10-09 04:56] LABS: Albumin, Blood 2.2 g/dL (3.4-5.0); Anion Gap 11 mmol/L (6-16); CO2, Blood 28 mmol/L (21-32); Calcium, Blood 7.7 mg/dL (8.5-10.1); Chloride, Blood 99 mmol/L (98-108); Glomerular Filtration Rate 16 (60-); Glucose, Blood 203 mg/dL (70-99); Potassium, Blood 4.3 mmol/L (3.5-5.5); Sodium, Blood 138 mmol/L (136-145)
[2020-10-09 05:07] LABS: Blood Urea Nitrogen 190 mg/dL (8-24); Bun/Creatinine Ratio 65.5 (12.0-20.0); Phosphorus, Blood 8.2 mg/dL (2.5-4.9)
--- NOTE | 2020-10-09 06:26 | NUR ---
CALL PLACED TO [facility] ALONSO PT VBG AND LABS. ORDERS RECEIVED TO INCREASE RR ON VENT TO 22. RT AWARE
--- NOTE | 2020-10-09 06:26 | NUR ---
SHIFT SUMMARY: NO ACUTE CHANGES T/O SHIFT. SEDATION REMAINS UNCHANGED. VSS. MINIMAL URINE OUTPUT.
--- NOTE | 2020-10-09 08:05 | NUR ---
INITIAL ASSESSMENT PATIENT INTUBATED AND SEDATED. PATIENT RESPONDING TO NOXIOUS STIMULI. PATIENT AFEBRILE. NO SIGNS OF PAIN NOTED. PATIENT MOVING EXTREMITIES SLIGHTLY TO NOXIOUS STIMULI. PATIENT ON AC 20, TV 300, PEEP 5 AND 55% FIO2. LUNGS COARSE AND DIMINISHED. SMALL AMOUNT OF THIN, ALLEN SECRETIONS BEING SUCTIONED FROM ETT. PATIENT IN SR WITH BBB, HR IN THE 60S. SBP IN THE LOW 100S. PATIENT EDEMATOUS THROUGHOUT. ABDOMEN MODERATELY DISTENDED, FIRM, WITH HYPOACTIVE BS NOTED. TF INFUSING AT GOAL RATE. RESIDUAL OF 5 MLS OBTAINED AND REINSTILLED. ELIZALDE DRAINING MINIMAL AMOUNT OF DARK YELLOW URINE. BRUISES SCATTERED THROUGHOUT. COCCYX AND HEELS REDDENED. SCAB NOTED TO R UPPER LIP. PRECEDEX INFUSING AT 0.5 MCG/ KG/ HOUR AND PROPOFOL AT 10 MCG/ KG/ HOUR. BED LOW, CALL LIGHT IN REACH. WILL CONTINUE TO MONITOR PATIENT FREQUENTLY THROUGHOUT SHIFT.
--- NOTE | 2020-10-09 09:00 | NUR ---
DR. DIGGS UPDATED ON PATIENT STATUS. INFORMED THAT DAUGHTER WOULD LIKE TO BE HERE WHEN PATIENT IS ON WEAN AND SEDATION VACATION TODAY. INFORMED OF VBG RESULTS; ALREADY AWARE. INFORMED THAT PATIENT HAD ONLY 200 MLS OF URINE OUT OF CONSERVATION OFFICER. NO ORDERS OBTAINED AT THIS TIME.
[2020-10-09 10:11] LABS: Source, Urine Catheter
[2020-10-09 10:14] LABS: Bilirubin, Urine Neg (Neg); Blood, Urine 3+ (Neg); Glucose Qualitative, Urine Neg (Neg); Ketones, Urine Neg (Neg); Leukocyte Esterase, Urine 3+ (Neg); Nitrite, Urine Neg (Neg); Protein, Urine Neg (Neg); Specific Gravity, Urine 1.015 (1.003-1.022); Urobilinogen, Urine NORM (Normal)
[2020-10-09 10:26] LABS: Appearance, Urine Hazy (Clear); Color, Urine Yellow (P-Yellow)
[2020-10-09 10:27] LABS: Bacteria Many /hpf; Squamous Epithelial Cells Few /hpf (Few)
--- NOTE | 2020-10-09 12:00 | NUR ---
PATIENT AFEBRILE. NO SIGNS OF PAIN NOTED. AC 22, TV 300, PEEP 5 AND 55% FIO2. HR 60S TO 70S. SBP 90S TO LOW 100S. TF RESIDUAL OF 10 MLS. NO OTHER ACUTE CHANGES TO NOTE ON AT THIS TIME.
--- NOTE | 2020-10-09 16:10 | NUR ---
PATIENT AFEBRILE. PATIENT PLACED ON SEDATION VACATION AND WEAN WHILE HER DAUGHTER HERE. PATIENT RESPONDED TO VERBAL STIMULI BUT DID NOT TRACK OR FOLLOW ANY SIMPLE COMMANDS. DAUGHTER STATED THAT PATIENT DID SQUEEZE HER HAND. PATIENT HYPERTENSIVE DURING SEDATION VACATION AND WEAN. PATIENT TRIED ON SPONTANEOUS PS OF 20 AND HAD MAX TIDAL VOLUME OF 260. PATIENT PLACED BACK ON AC SETTINGS COULD NOT TOLERATE WEAN. DR. DIGGS IN ROOM TO SPEAK WITH DAUGHTER.
--- NOTE | 2020-10-09 19:16 | NUR ---
SHIFT SUMMARY PATIENT REMAINED INTUBATED AND SEDATED. PATIENT REMAINED RESPONDING TO VERBAL TO NOXIOUS STIMULI. PATIENT PLACED ON SEDATION VACATION AND WEAN FOR SHORT TIME WHILE DAUGHTER HERE TODAY. PATIENT FAILED WEAN ON SPONTANEOUS PS OF 20. PATIENT DID NOT FOLLOW COMMANDS OR TRACK WITH EYES WHILE OFF OF SEDATION. PATIENT REMAINED AFEBRILE. PATIENT HAD NO SIGNS OF PAIN NOTED. LUNGS REMAINED COARSE AND DIM. PATIENT HAD SMALL AMOUNT OF THIN, ALLEN SECRETIONS FROM ETT. AC REMAINED AT 22, PEEP 5, TV 300 AND 55% FIO2. PATIENT REMAINED IN SR WITH BBB. HR 60S TO 70S. SBP 90S TO 220S. PATIENT HYPERTENSIVE DURING WEAN AND SEDATION VACATION. TF REMAINED AT GOAL. RESIDUALS OF 0 TO 10 MLS. NO BM TODAY. ELIZALDE DRAINED 261 MLS OF DARK YELLOW COLORED URINE. NO CHANGE IN SKIN. UA SENT THIS SHIFT. PLAN IS FOR COMFORT TO MOVE TO COMFORT CARE TOMORROW OR SUNDAY PER FAMILY. PATIENT APPEARS COMFORTABLE AT THIS TIME. BED LOW, CALL LIGHT IN REACH. REPORT GIVEN TO ATMOSPHERIC SCIENTIST RN.
--- NOTE | 2020-10-09 19:41 | NUR ---
pt remains intubated and sedated. resting comfortably in bed. pt failed terminal wean during dayshift. as of now, pt vss. biox stable. vent settings ar 22/300/5/55-60%.
--- NOTE | 2020-10-10 05:33 | NUR ---
PT IS TRIGGERING VENT FOR HIGH PEAK PRESSURES AND BREATH STACKING. PT SUCTIONED. NO SECRETIONS. RT LISA CALLED AND IS AWARE
--- NOTE | 2020-10-10 06:40 | NUR ---
NO ACUTE CHANGES. LUNGS REMAIN COARSE, WHEEZY, AND DIM. SBP STABLE EXCEPT FOR A 2 HR PERIOD WHERE SHE WAS HYPERTENSIVE. PT BECAME HYPERTENSIVE AFTER BEING TURNED TO HER RIGHT SIDE. FENTANYL QAS GIVEN AND PT WAS PLACED SUPINE. SBP CAME DOWN TO 90-100S. MINIMAL URINE OUTPUT. PT DID BECOME AGITATED AFTER HER BEDBATH AROUND 6AM. VENT WAS BEING TRIGGERED FOR HIGH PEAK PRESSURES AND BREATH STACKING. ATTEMPTED SUCTIONING. RT CALLED. INCREASED PROPOFOL TO 30MCG AND PT IS NOW TOLERATING VENT WELL.
--- NOTE | 2020-10-10 08:05 | NUR ---
INITIAL ASSESSMENT PATIENT INTUBATED AND SEDATED. PATIENT RESPONDING TO NOXIOUS STIMULI, ORAL CARE AND REPOSITIONING. SCLERAL EDEMA NOTED. PATIENT AFEBRILE. NO SIGNS OF PAIN NOTED AT THIS TIME. PATIENT ON VENT SETTINGS OF AC 22, TV 300, PEEP 5 AND 55% FIO2. LUNG SOUNDS COARSE THROUGHOUT. NO SECRETIONS SUCTIONED FROM ETT. ORAL SECRETIONS RESEMBLED TF SO TF PLACED ON HOLD. DR. DIGGS INFORMED AND LOOKED AT XRAY. DOCTOR OKAY TO HAVE TF RESTARTED. PATIENT IN SR WITH BBB, HR IN THE 60S. SBP 120S TO 140S. PATIENT EDEMATOUS THROUGHOUT. ABDOMEN MODERATELY DISTENDED, FIRM, WITH HYPOACTIVE BS NOTED. TF INFUSING AT GOAL RATE. RESIDUAL OF ZERO. ELIZALDE DRAINING MINIMAL AMOUNT OF DARK YELLOW URINE. BRUISES SCATTERED THROUGHOUT. HEELS AND COCCYX REDDENED. SCAB HEALING ON R UPPER LIP. PRECEDEX INFUSING AT 0.5 MCG/ KG/ HOUR AND PROPOFOL AT 20 MCG/ KG/ MINUTE. BED LOW, CALL LIGHT IN REACH. WILL CONTINUE TO MONITOR PATIENT FREQUENTLY THROUGHOUT SHIFT.
[2020-10-10 08:52] LABS: Hematocrit 24.7 % (33.0-51.0); Hemoglobin 7.8 g/dL (11.5-16.0); Mean Corpuscular HGB 29.7 pg (26.0-34.0); Mean Corpuscular HGB Conc 31.6 g/dL (31.5-36.5); Mean Corpuscular Volume 94 fL (80-100); Mean Platelet Volume 11.1 fL (9.1-12.4); NRBC ABSOLUTE 0.02 K/mm3 (0.00-0.02); NRBC Auto 0.1 /100 WBC (0.0-0.2); Platelet Count 400 K/mm3 (150-400); RDW Coefficient Variation 17.3 % (11.7-14.2); RDW Standard Deviation 58.1 fL (35.1-46.3); Red Blood Cell Count 2.63 M/mm3 (3.80-5.20); White Blood Cell Count 16.95 K/mm3 (4.00-11.30)
[2020-10-10 09:24] LABS: Albumin, Blood 2.1 g/dL (3.4-5.0); Albumin/Globulin Ratio 0.6 (0.8-1.8); Bilirubin, Total 0.6 mg/dL (0.1-1.0); Bun/Creatinine Ratio 66.3 (12.0-20.0); Calcium, Blood 7.6 mg/dL (8.5-10.1); Globulin, Blood 3.6 g/dL (2.2-4.0); Potassium, Blood 4.6 mmol/L (3.5-5.5); Total Protein, Blood 5.7 g/dL (6.4-8.2)
[2020-10-10 09:36] LABS: BAND PERCENT MAN 3 % (0-8); BASOPHILS PERCENT MAN 0 % (0-2); EOSINOPHILS ABSOLUTE MAN 0.16 K/mm3 (0.00-0.68); EOSINOPHILS PERCENT MAN 1 % (0-6); LYMPHOCYTES ABSOLUTE MAN 0.67 K/mm3 (0.84-5.20); LYMPHOCYTES PERCENT MAN 4 % (21-46); MONOCYTES PERCENT MAN 3 % (4-13); MYELOCYTE ABSOLUTE MAN 0.16 K/mm3 (0.00-0.00); MYELOCYTE PERCENT MAN 1 % (0-0); NEUTROPHILS ABSOLUTE MAN 15.42 K/mm3 (1.96-9.15); SEG NEUTROPHILS PERCENT MAN 88 % (41-73); TOTAL CELLS COUNTED 100
--- NOTE | 2020-10-10 12:00 | NUR ---
PATIENT AFEBRILE. NO CHANGE IN RESP STATUS. HR IN THE 60S. SBP 1-TEENS TO 160S. RESIDUAL OF 5 MLS OBTAINED AND REINSTILLED. NO OTHER ACUTE CHANGES TO NOTE ON AT THIS TIME. WILL CONTINUE TO MONITOR.
--- NOTE | 2020-10-10 16:30 | NUR ---
PATIENT AFEBRILE. NO SIGNS OF PAIN NOTED. HR IN THE 60S. SBP 1-TEENS TO 120S. TF RESIDUAL OF 5 MLS OBTAINED AND REINSTILLED. NO ACUTE CHANGES TO NOTE ON AT THIS TIME. WILL CONTINUE TO MONITOR.
--- NOTE | 2020-10-10 18:58 | NUR ---
SHIFT SUMMARY PATIENT HAS REMAINED INTUBATED AND SEDATED. PATIENT HAS REMAINED RESPONDING TO NOXIOUS STIMULI. PATIENT HAS REMAINED AFEBRILE. PATIENT HAS HAD NO SIGNS OF PAIN THIS SHIFT. PATIENT REMAINED ON AC 22, TV 300, PEEP 5 AND FIO2 55%. LUNGS REMAINED COARSE. PATIENT REMAINED IN SR WITH BBB, HR IN THE 60S. SBP 1-TEENS TO 160S. PATIENT VERY EDEMATOUS. NO BM THIS SHIFT. TF REMAINS AT GOAL RATE. RESIDUALS OF O TO 5 MLS. ELIZALDE DRAINED ONLY 35 MLS OF URINE; DR. DIGGS AWARE. NO CHANGE TO SKIN. PATIENT REPOSITIONED THROUGHOUT SHIFT. PRECEDEX INFUSING AT 0.5 MCG/ KG/ HOUR, PROPOFOL AT 15 MCG/ KG/ MINUTE. FAMILY PLANS TO BE HERE AT 1100 TO MAKE PATIENT COMFORT CARE. PATIENT APPEARS COMFORTABLE AT THIS TIME. BED LOW, CALL LIGHT IN REACH. REPORT WILL BE GIVEN TO ASSUMING METAL FITTER NURSE SHORTLY.
[2020-10-11 03:57] LABS: Hematocrit 24.4 % (33.0-51.0); Hemoglobin 7.6 g/dL (11.5-16.0); Mean Corpuscular HGB 29.1 pg (26.0-34.0); Mean Corpuscular HGB Conc 31.1 g/dL (31.5-36.5); Mean Corpuscular Volume 94 fL (80-100); Mean Platelet Volume 10.6 fL (9.1-12.4); NRBC ABSOLUTE 0.02 K/mm3 (0.00-0.02); NRBC Auto 0.1 /100 WBC (0.0-0.2); Platelet Count 419 K/mm3 (150-400); RDW Coefficient Variation 17.5 % (11.7-14.2); RDW Standard Deviation 58.5 fL (35.1-46.3); Red Blood Cell Count 2.61 M/mm3 (3.80-5.20); White Blood Cell Count 16.87 K/mm3 (4.00-11.30)
[2020-10-11 04:28] LABS: BAND PERCENT MAN 6 % (0-8); BASOPHILS PERCENT MAN 0 % (0-2); EOSINOPHILS ABSOLUTE MAN 0.33 K/mm3 (0.00-0.68); EOSINOPHILS PERCENT MAN 2 % (0-6); LYMPHOCYTES PERCENT MAN 3 % (21-46); METAMYELOCYTE ABSOLUTE MAN 0.16 K/mm3 (0.00-0.00); METAMYELOCYTE PERCENT MAN 1 % (0-0); MONOCYTES PERCENT MAN 0 % (4-13); MYELOCYTE PERCENT MAN 3 % (0-0); NEUTROPHILS ABSOLUTE MAN 15.35 K/mm3 (1.96-9.15); SEG NEUTROPHILS PERCENT MAN 85 % (41-73); TOTAL CELLS COUNTED 100
[2020-10-11 04:58] LABS: Albumin, Blood 2.1 g/dL (3.4-5.0); Albumin/Globulin Ratio 0.6 (0.8-1.8); Bilirubin, Total 0.7 mg/dL (0.1-1.0); Bun/Creatinine Ratio 66.6 (12.0-20.0); Calcium, Blood 7.6 mg/dL (8.5-10.1); Creatinine, Blood 3.17 mg/dL (0.40-1.00); Globulin, Blood 3.7 g/dL (2.2-4.0); Potassium, Blood 4.9 mmol/L (3.5-5.5); Total Protein, Blood 5.8 g/dL (6.4-8.2)
--- NOTE | 2020-10-11 06:24 | NUR ---
SHIFT SUMMARY NO ACUTE CHANGES OVERNIGHT. TURNED DOWN PROPOFOL SLIGHTLY TO HELP WITH LOW BLOOD PRESSURE, NOW AT 10 MCG/KG/MIN. CONTINUES TO NOT FOLLOW DIRECTIONS, DOES WITHDRAW TO HFEA5RY STIMULI. VENT SETTINGS UNCHANGED, VSS, ASSESSMENT IS CHARTED. WILL CONTINUE TO MONITOR.
--- NOTE | 2020-10-11 08:45 | NUR ---
ASSUMED CARE OF PT, REPORT RCV'D FROM TAMERA RESENDEZ. PT INTUBATED AND LIGHTLY SEDATED. VENT SETTINGS AC 22/300/5/30%. PROPOFOL @ 10 MCG/KG/MIN, PRECEDEX @0.4 MCG/KG/HR. PT WITHDRAWS FROM PAINFUL/NOXIOUS STIMULI. NO PURPOSEFUL MOVEMENT NOTED, FAILS TO FOLLOW COMMANDS. PIVOT 1.5 @ GOAL 25 ML/HR WITH 150 ML Q4 FLUSH. NO RESIDUALS THIS MORNING. ELIZALDE PATENT AND DRAINING VERY SMALL AMOUNT OF URINE. PT'S FAMILY TO HAVE FAMILY MEETING THIS MORNING AT 1100. SEE FULL SHIFT ASSESSMENT.
--- NOTE | 2020-10-11 11:06 | NUR ---
PT'S FAMILY AT BEDSIDE.
--- NOTE | 2020-10-11 13:09 | NUR ---
1100 PT'S FAMILY (DAUGHTER AND GRANDAUGHTERS) AT BEDSIDE, DR. NUNEZ DISCUSSING COMFORT MEASURES. PT'S FAMILY REQUESTING A LITTLE TIME TO SAY GOODBYES BEFORE EXTUBATION. 1145: PT'S FAMILY REQUESTING DR. NUNEZ TO ROOM, REQUESTING EXTUBATION IMMEDIATELY. 1200: PT MEDICATED WITH MORPHINE, DR. NUNEZ AT BEDSIDE PREPPING FOR EXTUBATION. PT SUCTIONED THOROUGHLY. PROPOFOL INCREASED TO 25 MCG/KG/MIN. 1203: PT SUCCESSFULLY EXTUBATED. PT'S FAMILY REMAINS AT BEDSIDE, PT MEDICATED ONCE MORE WITH MORPHINE FOR AIR HUNGER. TOD: 1156, PRONOUNCED BY DR. NUNEZ. [facility] CONTACTED.
--- NOTE | 2020-10-11 14:00 | NUR ---
provided assistance with airway pt eminent after extubation. Assistance with family and funneral needs.
== END 2020-10-11 11:56 | DRG 870 ==
LOC: ER 12:04 → ICUW 21:58 → ERHOLD 21:58 → ICUW 22:47 → MEDS 09-18 17:31 → PCU 09-21 22:31 → ICUW 09-23 05:39
PROVIDERS: Internal Medicine; Internal Medicine Critical Care Medicine; Internal Medicine Interventional Cardiology; Internal Medicine Pulmonary Disease; Physician Assistant; ADMIT Internal Medicine
PROC: 02HV33Z Insertion of Infusion Device into Superior Vena Cava, Percutaneous Approach (ICD-10-PCS; principal; 2020-09-12)
PROC: 3E043XZ Introduction of Vasopressor into Central Vein, Percutaneous Approach (ICD-10-PCS; 2020-09-12)
PROC: 5A09357 Assistance with Respiratory Ventilation, Less than 24 Consecutive Hours, Continuous Positive Airway Pressure (ICD-10-PCS; 2020-09-12)
PROC: 5A1955Z Respiratory Ventilation, Greater than 96 Consecutive Hours (ICD-10-PCS; 2020-09-25)
PROC: 0BH18EZ Insertion of Endotracheal Airway into Trachea, Via Natural or Artificial Opening Endoscopic (ICD-10-PCS; 2020-09-25)
PROC: B246ZZ4 Ultrasonography of Right and Left Heart, Transesophageal (ICD-10-PCS; 2020-09-28)
PROC: 0B9G8ZX Drainage of Left Upper Lung Lobe, Via Natural or Artificial Opening Endoscopic, Diagnostic (ICD-10-PCS; 2020-10-04)
DX: A41.02 Sepsis due to Methicillin resistant Staphylococcus aureus (principal); R65.21 Severe sepsis with septic shock; J96.21 Acute and chronic respiratory failure with hypoxia; I50.43 Acute on chronic combined systolic (congestive) and diastolic (congestive) heart failure; J15.212 Pneumonia due to Methicillin resistant Staphylococcus aureus; N17.0 Acute kidney failure with tubular necrosis; J44.1 Chronic obstructive pulmonary disease with (acute) exacerbation; J98.11 Atelectasis; N18.4 Chronic kidney disease, stage 4 (severe); I48.0 Paroxysmal atrial fibrillation; E11.22 Type 2 diabetes mellitus with diabetic chronic kidney disease; Z99.81 Dependence on supplemental oxygen; I25.2 Old myocardial infarction; I25.10 Atherosclerotic heart disease of native coronary artery without angina pectoris; E11.51 Type 2 diabetes mellitus with diabetic peripheral angiopathy without gangrene; Z87.891 Personal history of nicotine dependence; Z20.822 Contact with and (suspected) exposure to COVID-19; M48.061 Spinal stenosis, lumbar region without neurogenic claudication; G47.33 Obstructive sleep apnea (adult) (pediatric); Z79.01 Long term (current) use of anticoagulants; Z66 Do not resuscitate; Z51.5 Encounter for palliative care; Z78.1 Physical restraint status; Z79.84 Long term (current) use of oral hypoglycemic drugs
CPT/HCPCS: 0241U; 31500; 31720; 36415; 36430; 36556; 36569; 36620; 51702; 70450; 71045; 72100; 72125; 72128; 72131; 72156; 72158; 73701; 74176; 78802; 80048; 80053; 80069; 80162; 80202; 81001; 82607; 82728; 82746; 82803; 82947; 83540; 83550; 83605; 83735; 83880; 84100; 84145; 84443; 84484; 85014; 85018; 85025; 85610; 85651; 85730; 86140; 86850; 86900; 86901; 86923; 87040; 87070; 87077; 87086; 87147; 87186; 87205; 93005; 93010; 93306; 93308; 93312; 93325; 93970; 94002; 94003; 94640; 94660; 94664; 94667; 94760; 94762; 96361-59; 96365-59; 96366-59; 96367-59; 96374; 96375-59; 96376-59; 97110; 97162; 97166; 97530; 97535; 99285-25; A9270; A9569; A9579; C1751; C1769; J0282; J0456; J0712; J0878; J1160; J1170; J1644; J1650; J1815; J1940; J1956; J2185; J2250; J2270; J2550; J2704; J2920; J2930; J3010; J3360; J3370; J7030; J7040; J7050; J7060; J7120; J7512; P9016; P9046; P9612; Q9967